=== PATIENT | male | born 1965 | race Hispanic/Latino ===

== ENCOUNTER → 2024-07-14 06:43 | Outpatient (REF) | payer MEDICAID, SELFPAY ==
[2024-07-14 08:04] LABS: % Basophils 0.3 % (0-2); % Eosinophils 2.7 % (0-6); % Immature Granulocytes 0.1 % (0-0.5); % Lymphocytes 21.4 % (20.5-51.1); % Monocytes 8.9 % (1.7-9.3); % Neutrophils 66.6 % (42.2-75.2); Absolute Eosinophils 0.2 10^3/uL (0-0.7); Absolute Lymphocytes 1.4 10^3/uL (1.2-3.4); Absolute Monocytes 0.6 10^3/uL (0.1-0.6); Absolute Neutrophils 4.5 10^3/uL (1.4-6.5); Hematocrit 28.6 % (39.0-52.0); Hemoglobin 9.4 g/dL (13.0-18.0); Mean Corp Hgb Conc. 32.9 g/dL (33.0-37.0); Mean Corpuscular Hgb 33.3 pg (27.0-31.0); Mean Corpuscular Volume 101.4 fL (80.0-94.0); Mean Platelet Volume 11.2 fL (7.4-10.4); Nucleated Red Blood Cells % 0 % (-); Platelet Count 140 10^3/uL (130-400); Red Blood Cell Count 2.82 10^6/uL (4.70-6.10); Red Cell Dist. Width 13.8 % (11.5-14.5); White Blood Cell Count 6.7 10^3/uL (4.8-10.8)
[2024-07-14 08:40] LABS: ALT (SGPT) 39 U/L (0-50); AST (SGOT) 25 U/L (17-59); Albumin 4.4 g/dl (3.5-5.0); Alkaline Phosphatase 130 U/L (38-126); Blood Urea Nitrogen 55 mg/dl (9-20); Calcium 8.8 mg/dl (8.4-10.2); Carbon Dioxide 31 mmol/L (22-30); Chloride 93 mmol/L (98-107); Glucose 103 mg/dl (70-99); HDL Cholesterol 31 mg/dl; LDL Cholesterol, Calculated 77 mg/dl; Potassium 5.9 mmol/L (3.5-5.1); Sodium 140 mmol/L (135-145); Total Bilirubin 0.6 mg/dl (0.2-1.3); Total Cholesterol 141 mg/dl (50-199); Total Protein 6.9 g/dl (6.3-8.2); Triglyceride 167 mg/dl (10-149); Very Low Density Lipoprotein 33 mg/dl (0-30)
[2024-07-14 09:07] LABS: PSA, Total - Screen 1.55 ng/ml (0.0-4.0)
[2024-07-14 09:43] LABS: Glycohemoglobin (HgbA1c) 4.9 % (4.0-5.6)
[2024-07-14 10:12] LABS: Uric Acid 3.4 mg/dl (3.5-8.5)
[2024-07-14 16:12] LABS: Magnesium 2.3 mg/dl (1.6-2.3)
== END ==
LOC: REG 06:43
PROVIDERS: ATTENDING PHYSICIAN Family Medicine
DX: R19.5 Other fecal abnormalities (principal); N18.6 End stage renal disease; R79.9 Abnormal finding of blood chemistry, unspecified; Z79.899 Other long term (current) drug therapy; Z68.31 Body mass index [BMI] 31.0-31.9, adult
CPT/HCPCS: 36415; 80053; 80061; 83036; 83735; 84550; 85025; G0103

== ENCOUNTER → 2024-08-09 06:28 | Day surgery (SDC) | payer MEDICAID, SELFPAY ==
[2024-08-09 12:17] LABS: Glucose - Point of Care 109 mg/dl (70-99)
== END ==
LOC: GI 06:28
PROVIDERS: ATTENDING PHYSICIAN Student in an Organized Health Care Education/Training Program
DX: Z12.11 Encounter for screening for malignant neoplasm of colon (principal); R19.5 Other fecal abnormalities; D50.9 Iron deficiency anemia, unspecified; K57.30 Diverticulosis of large intestine without perforation or abscess without bleeding; K63.89 Other specified diseases of intestine; K22.89 Other specified disease of esophagus; K31.7 Polyp of stomach and duodenum; K31.89 Other diseases of stomach and duodenum; D12.5 Benign neoplasm of sigmoid colon; D12.3 Benign neoplasm of transverse colon; D12.0 Benign neoplasm of cecum; K29.50 Unspecified chronic gastritis without bleeding; K31.A0 Gastric intestinal metaplasia, unspecified
CPT/HCPCS: 45385; 45380; 43239; 88305; 82962; 88342

== ENCOUNTER 2024-08-18 16:02 | Emergency (ER) | payer MEDICAID, SELFPAY ==
[2024-08-18 16:04] VITALS: BP 176/96
[2024-08-18 16:21] LABS: % Basophils 0.1 % (0-2); % Eosinophils 0.2 % (0-6); % Immature Granulocytes 0.7 % (0-0.5); % Lymphocytes 10.4 % (20.5-51.1); % Monocytes 11.2 % (1.7-9.3); % Neutrophils 77.4 % (42.2-75.2); Absolute Immature Granulocytes 0.1 10^3/uL (0-0.05); Absolute Monocytes 1.1 10^3/uL (0.1-0.6); Absolute Neutrophils 7.5 10^3/uL (1.4-6.5); Hematocrit 25.5 % (39.0-52.0); Hemoglobin 8.1 g/dL (13.0-18.0); Mean Corp Hgb Conc. 31.8 g/dL (33.0-37.0); Mean Corpuscular Hgb 32.5 pg (27.0-31.0); Mean Corpuscular Volume 102.4 fL (80.0-94.0); Mean Platelet Volume 11.5 fL (7.4-10.4); Nucleated Red Blood Cells % 0 % (-); Platelet Count 121 10^3/uL (130-400); Red Blood Cell Count 2.49 10^6/uL (4.70-6.10); Red Cell Dist. Width 14.3 % (11.5-14.5); White Blood Cell Count 9.7 10^3/uL (4.8-10.8)
[2024-08-18 16:34] LABS: COVID-19 Antigen Negative (Negative)
[2024-08-18 16:42] LABS: ALT (SGPT) 420 U/L (0-50); AST (SGOT) 403 U/L (17-59); Albumin 4.4 g/dl (3.5-5.0); Alkaline Phosphatase 117 U/L (38-126); Blood Urea Nitrogen 69 mg/dl (9-20); Calcium 8.5 mg/dl (8.4-10.2); Carbon Dioxide 30 mmol/L (22-30); Chloride 90 mmol/L (98-107); Glucose 123 mg/dl (70-99); Potassium 6.4 mmol/L (3.5-5.1); Sodium 139 mmol/L (135-145); Total Bilirubin 1.1 mg/dl (0.2-1.3); eGFR 6.79
--- NOTE | 2024-08-18 17:40 | ED.GENMED ---
History of Present Illness
General
Chief Complaint: Cold/Flu/URI Symptoms
Source: patient
Exam Limitations: none
Time Seen by Provider: 08/18/24 17:25
Nursing documentation reviewed up to this point in time: agreed with
History of Present Illness
History of Present Illness:
Patient to ED wtih complaint of fever, cough, bodyaches. Symptoms started 1.5weeks ago. COmplains of inablilty to sleep due to cough. Dialysis patient kaitlin nguyen, sat. Brought to ED by spouse for eval
Past History
Past History
ED Past Medical History: HTN, NIDDM and Renal failure (hemo dialysis)
ED Past Surgical History: Other (LUE AV fistula)
Social History
Personal:
Review of Systems
Review of Systems
All Other Systems: ROS reviewed and negative except as documented in HPI and ROS
Constitutional: Reports fever and fatigue
EENT: Reports no symptoms
Respiratory: Reports cough and trouble breathing
Cardiac: Reports no symptoms
ABD/GI: Reports no symptoms
: Reports no symptoms
Musculoskeletal: Reports other (generalilzed body ache)
Skin: Reports no symptoms
Neurological: Reports weakness
Psychiatric: Reports no symptoms
Phy Exam
General Physical Exam
General Presentation: well appearing and no apparent distress
General age: appears stated age
General Skin: warm and dry
General Habitus: normal
Cardiovascular Exam
Cardiovascular Exam: regular rate/rhythm
Pulmonary Exam
Pulmonary Exam: lungs clear, no respiratory distress and chest non tender
Gastrointestinal Exam
Gastrointestinal Exam: normal bowel sounds, non tender, soft and no organomegaly
Musculoskeletal Exam
Musculoskeletal Exam: full ROM and neuro vasc intact
Skin Exam
Skin Exam: normal color, warm/dry and no rash
Psychiatric Exam
Psychiatric Exam: normal mood/affect
Course
Orders/Labs/Results
Orders:
Orders
08/18/24 16:12
COVID-19 Antigen Urgent
Source: Nasal Swab
Complete Blood Count/With Diff Urgent
Comprehensive Metabolic Panel Urgent
NT-proBNP Urgent
Influenza A+B Rapid Molecular Urgent
TED Source: Nasal Swab
Specimen Description:
08/18/24 17:28
CR Chest - 2 Views Urgent
Comment:
Reason For Exam: [email or web address]
08/18/24 17:39
Sodium Zirconium Cyclosilicate [Lokelma] 10 gram PO NOW STA
08/18/24 19:04
Add On- LAB Urgent
Tests Added?: BNP
08/18/24 19:25
Acetaminophen [Tylenol] 650 mg PO NOW STA
08/18/24 20:18
Benzonatate [Tessalon Perles] 200 mg PO NOW STA
Abnormal Lab Results
08/18/24
16:12
RBC 2.49 L 10^6/uL
(4.70-6.10)
Hgb 8.1 L g/dL
(13.0-18.0)
Hct 25.5 L %
(39.0-52.0)
MCV 102.4 H fL
(80.0-94.0)
MCH 32.5 H pg
(27.0-31.0)
MCHC 31.8 L g/dL
(33.0-37.0)
Plt Count 121 L 10^3/uL
(130-400)
MPV 11.5 H fL
(7.4-10.4)
Abs Immat Gran (auto) 0.1 H 10^3/uL
(0-0.05)
Absolute Neuts (auto) 7.5 H 10^3/uL
(1.4-6.5)
Absolute Lymphs (auto) 1.0 L 10^3/uL
(1.2-3.4)
Absolute Monos (auto) 1.1 H 10^3/uL
(0.1-0.6)
Immature Gran % 0.7 H %
(0-0.5)
Neutrophils % 77.4 H %
(42.2-75.2)
Lymphocytes % 10.4 L %
(20.5-51.1)
Monocytes % 11.2 H %
(1.7-9.3)
Potassium 6.4 H* mmol/L
(3.5-5.1)
Chloride 90 L mmol/L
(98-107)
BUN 69 H mg/dl
(9-20)
Creatinine 8.4 H* mg/dL
(0.7-1.3)
Glucose 123 H mg/dl
(70-99)
AST 403 H U/L
(17-59)
ALT 420 H U/L
(0-50)
08/18/24 16:12
08/18/24 16:12
Vital Signs
Initial and Last Documented VS:
Initial Vital Signs
Temp Pulse Resp BP Pulse Ox
100.4 F H 101 16 176/96 98
08/18/24 16:04 08/18/24 16:04 08/18/24 16:04 08/18/24 16:04 08/18/24 16:04
Last Documented Vital Signs
Temp Pulse Resp BP Pulse Ox
100.0 F 97 20 113/62 94
08/18/24 19:13 08/18/24 19:13 08/18/24 19:13 08/18/24 19:13 08/18/24 19:13
MDM/Problems Addressed
Differential Diagnosis Includes:
Patient to ED with complaint of cough, fever, bodyaches. Symptoms present for 1.5 weeks. Difficulty sleeping due to cough. He is a dialysis patient, receives dialysis mauricio amezquita, sat. Temp 100.0 in ED. WBC normal. Hgb 8.1 which is stable for
him. K 6.4. given dose of lokelma. Na normal. Creat 8.4. CXR NAD. Discussed with Dr. Adams. Patient would like to go home, requesting medication for his cough. He will follow up at dialysis in AM as previously scheduled. Dr. Adams agreable with
discharge plan. He was given instructions on s/s to return to ED and he is agreeable to plan. DDx: infection, viral vs, bacterial, fluid overload
*Radiology
Radiology exam reviewed: radiology read reviewed
*Pulse Oximetry
Patient hypoxic: no
*Critical Care Note
Total Time (30-74mins, 75-104mins- exclusive of procedures): Not Applicable
ED Attending Note
-
Portions of this chart may have been created with voice recognition software.� Occasional wrong word or��sound alike� substitutions may have occurred due to the inherent limitations of voice recognition software.
Discharge Plan
Departure
Patient Disposition: Home (Routine Discharge)
Date of Disposition: 08/18/24
Time of Disposition: 20:00
Patient with high blood pressure during this ER visit?: No
Condition: Good
Covid-19: Not Applicable
Discharge Problem:
Hyperkalemia, Cough in adult
Instructions: Hyperkalemia (DC), Cough, Adult ED
Prescriptions:
No Action
allopurinol 100 MG tablet
200 mg PO DAILY
sevelamer carbonate 800 MG tablet
800 mg PO QPM
acetaminophen 325 mg Tablet
325 mg PO DAILYPRN PRN (Reason: mild pain)
calcium carbonate [Tums] 200 mg calcium (500 mg) Tablet,Chewable
400 mg PO DAILYPRN PRN (Reason: indigestion)
nifedipine 60 mg Tablet Extended Release
60 mg PO DAILY
B-complex with vitamin C [Nephro-Carmine] Tablet
1 tab PO TUTHSA
cinacalcet 30 mg Tablet
30 mg PO DAILY
Referrals:
Alex Todd MD [Family Provider] -
Activity Restrictions/Additional Instructions:
FOllow up at dialysis in AM as scheduled.
Interventions
Interventions:
*Risk Screen - Suicide Last Done: 08/18/24 16:04
*General Assessment Last Done: 08/18/24 16:04
*Neglect/Abuse Screening Last Done: 08/18/24 16:04
*ED COVID-19 Vaccine History Last Done: 08/18/24 16:04
*Nursing Disposition Last Done: 08/18/24 20:28
ED- Pulmonary Assessment Last Done: 08/18/24 19:00
Discharge Date and Time
Discharge Date/Time: 08/18/24 20:29
Print Language: CROATIAN
[2024-08-18] MEDS: LOKELMA 10 GRAM PO (18:11)
[2024-08-18 19:13] VITALS: BP 113/62
[2024-08-18 19:28] LABS: NT-proBNP > 27000 pg/ml
[2024-08-18] MEDS: TYLENOL 650 MG PO (19:33)
[2024-08-18] MEDS: TESSALON PERLES 200 MG PO (20:23)
== END 2024-08-18 20:29 | disposition home or self-care (01) ==
LOC: EMR 16:02
PROVIDERS: Emergency Medicine; EMERGENCY PHYSICIAN Emergency Medicine; FAMILY PHYSICIAN Family Medicine
DX: E87.5 Hyperkalemia (principal); R05.9 Cough, unspecified; I12.0 Hypertensive chronic kidney disease with stage 5 chronic kidney disease or end stage renal disease; E11.22 Type 2 diabetes mellitus with diabetic chronic kidney disease; N18.6 End stage renal disease; Z99.2 Dependence on renal dialysis
CPT/HCPCS: 99284; 71046; 80053; 83880; 85025; 87502; 87811

== ENCOUNTER 2024-08-19 12:53 | Inpatient (IN) | payer MEDICAID, SELFPAY ==
[2024-08-19] VITALS (42 sets, daily range): BP systolic 87–129; BP diastolic 55–87; BMI 29.7
--- NOTE | 2024-08-19 11:15 | ED.GENMED ---
History of Present Illness
General
Chief Complaint: Rectal Bleeding
Time Seen by Provider: 08/19/24 11:15
History of Present Illness
History of Present Illness:
TIME OF INITIAL ENCOUNTER: 11:20 AM
HPI: The patient had colonoscopy 10 days ago and did have polypectomies. He cannot tell me why he had the colonoscopy performed 10 days ago (he Dr. Denton later told me that it was due to an abnormal Cologuard). He had rectal bleeding that started
last night. It is a little bit better today. He was seen in the ER yesterday due to a general unwell feeling and was found to be hyperkalemic and he did have dialysis this morning. He has no abdominal pain and no fevers. He states that his
hemoglobin level was 'low' according to dialysis today and was given a dose of something to raise his hemoglobin.
EXAM:
GENERAL: Somewhat pale and weak in appearance
HEENT: Moist oral mucosa
CARDIOVASCULAR: No murmurs, normal heart rate, regular rhythm, No chest wall tenderness
PULMONARY: No respiratory distress, breath sounds are clear and equal
ABDOMEN: Soft with no peritoneal signs, no tenderness, on digital rectal examination, there is a small amount of blood on digital rectal examination
NEUROLOGIC: Excellent strength all extremities, no coordination deficits
PSYCHIATRIC: Appropriate mental status, normal insight and judgement
EXTREMITIES: Nontender, no edema, moves all extremities equally
SKIN: Appears somewhat pale
NUMBER AND COMPLEXITY OF PROBLEMS ADDRESSED AT THE ENCOUNTER
� Chronic conditions affecting care: CKD on HD, high blood pressure, hyperlipidemia
� Acute Exacerbation and/or Progression of Chronic Illness: This is an acute problem
� Differential Diagnosis includes: Post polypectomy bleeding, diverticular bleeding
AMOUNT AND/OR COMPLEXITY OF DATA TO BE REVIEWED AND ANALYZED
� I performed an independent evaluation of and my interpretation is:
EKG:
CT:
X-rays:
Laboratory Studies: White count 5.2, hemoglobin 5.9, transaminases are higher than yesterday, potassium is 3.7 creatinine is 3.9
Other:
� Review of other/old records: I reviewed records, the patient had a colonoscopy with Dr. Denton 08/09/2024, 3 mm cecal, 14 mm proximal transverse, 20 mm mid transverse, and 20 mm sigmoid polyps were removed.
� Clinical information was obtained by an independent historian: None needed
� Prescriptions/Medications Considered but not given:
� Further testing considered but not performed: Considered CTA however the patient just had hemodialysis today and vital signs are stable here
RISK OF COMPLICATIONS AND/OR MORBIDITY OR MORTALITY OF PATIENT MANAGEMENT
� Social determinants of health affecting care: Lives at home, attends hemodialysis
� Discussion with other providers: Dr. Denton texted me earlier and then I informed him of the low hemoglobin. Dr. Soliz, hospitalist for admission.
� Escalation of care including admission/observation vs risk of discharge considered: Planning blood transfusion. Patient did sign informed consent for blood transfusion.
ANY OTHER UPDATES:
12 PM: Patient remained hemodynamically stable but will plan admission to the hospital and blood transfusion
Past History
Past History
ED Past Medical History: HTN, NIDDM and Renal failure (hemo dialysis)
ED Past Surgical History: Other (LUE AV fistula)
Social History
Personal:
Phy Exam
Physical Exam
Physical Exam:
See HPI
Course
Orders/Labs/Results
Orders:
Orders
08/19/24 11:14
Type+Screen Urgent
Complete Blood Count/With Diff Urgent
Comprehensive Metabolic Panel Urgent
08/19/24 12:28
Blood Bank Products [* Blood Bank Products] Urgent
Blood Bank Products: *Packed RBC Leuko(PRBC's)
Quantity: 2
Transfuse Today: Yes
Reason: Anemia
08/19/24 12:30
Admit/Transfer Patient As Directed
Co-Sign Provider:
Level of Care: Inpatient admission
Assign to:: Heart Failure Unit
Physician / Group: Jorge
Diagnosis: GI Bleed
Reason for Hospitalization: blood transfusion, GI consult
Expected length of stay greater than two midnights?: Yes
ELOS- Estimated Length of Stay in days: 3
I certify the patient meets the requirements for IP care: Yes
GASTROINTESTINAL CONSULT Routine
Consulting Provider: Krys Moreno
Was physician already notified: Yes
NEPHROLOGY CONSULT Routine
Consulting Provider: Db Adams
Was physician already notified: Yes
08/19/24 12:31
Code Status As Directed
Resuscitation Status: Full Code
PRN Pain Medication Management As Directed
May give lesser potent ordered pain med per pt: Yes
preference::
Protocol:: Medication orders for pain may be administered in a
manner that supports deferring to patient preference
when the pt is:
- Requesting an ordered lesser potent pain medication.
Least to most potent pain medications are defined
as: acetaminophen < NSAID < tramadol < opioids
(morphine, oxycodone, hydromorphone).
- Requesting a lesser dose of the same medication IF
ORDERED.
- Requesting a less intrusive route of administration
if both routes are prescribed by the provider (PO <
IV).
Abnormal Lab Results
08/19/24
11:14
RBC 1.80 L 10^6/uL
(4.70-6.10)
Hgb 5.9 L* D g/dL
(13.0-18.0)
Hct 17.6 L* %
(39.0-52.0)
MCV 97.8 H fL
(80.0-94.0)
MCH 32.8 H pg
(27.0-31.0)
Plt Count 103 L 10^3/uL
(130-400)
MPV 11.3 H fL
(7.4-10.4)
Immature Gran % 0.8 H %
(0-0.5)
Chloride 93 L mmol/L
(98-107)
Carbon Dioxide 36 H mmol/L
(22-30)
BUN 32 H mg/dl
(9-20)
Creatinine 3.9 H mg/dL
(0.7-1.3)
Glucose 120 H mg/dl
(70-99)
Calcium 7.8 L mg/dl
(8.4-10.2)
AST 524 H* U/L
(17-59)
ALT 730 H* U/L
(0-50)
Total Protein 5.3 L D g/dl
(6.3-8.2)
Albumin 3.2 L g/dl
(3.5-5.0)
Crossmatch IS Only See Detail
08/19/24 11:14
08/19/24 11:14
Vital Signs
Initial and Last Documented VS:
Initial Vital Signs
Temp Pulse Resp BP Pulse Ox
36.7 C 90 16 108/55 98
08/19/24 10:43 08/19/24 10:43 08/19/24 10:43 08/19/24 10:43 08/19/24 10:43
Last Documented Vital Signs
Temp Pulse Resp BP Pulse Ox
37.0 C 86 16 110/62 98
08/19/24 13:19 08/19/24 13:19 08/19/24 13:19 08/19/24 13:19 08/19/24 13:19
*Critical Care Note
Total Time (30-74mins, 75-104mins- exclusive of procedures): Not Applicable
ED Attending Note
-
Portions of this chart may have been created with voice recognition software.� Occasional wrong word or��sound alike� substitutions may have occurred due to the inherent limitations of voice recognition software.
Discharge Plan
Departure
Patient Disposition: Admit
Date of Disposition: 08/19/24
Time of Disposition: 11:54
Presentation/result/management discussed w/ accepting MD/DO: Hospitalist
Discharge Problem:
Post-polypectomy bleeding
Interventions
Interventions:
*Risk Screen - Suicide Last Done: 08/19/24 10:43
*General Assessment Last Done: 08/19/24 11:09
*Neglect/Abuse Screening Last Done: 08/19/24 10:46
ED- Fall Risk Assessment Last Done: 08/19/24 11:09
*ED COVID-19 Vaccine History Last Done: 08/19/24 11:09
IQ-Lpfnzy-Asirccgbzg Assessment Last Done: 08/19/24 11:09
ED- Cardiac Assessment Last Done: 08/19/24 11:09
ED- Pulmonary Assessment Last Done: 08/19/24 11:09
[2024-08-19 11:50] LABS: % Basophils 0.4 % (0-2); % Eosinophils 1.9 % (0-6); % Immature Granulocytes 0.8 % (0-0.5); % Lymphocytes 22.2 % (20.5-51.1); % Monocytes 9.1 % (1.7-9.3); % Neutrophils 65.6 % (42.2-75.2); Absolute Eosinophils 0.1 10^3/uL (0-0.7); Absolute Lymphocytes 1.2 10^3/uL (1.2-3.4); Absolute Monocytes 0.5 10^3/uL (0.1-0.6); Absolute Neutrophils 3.4 10^3/uL (1.4-6.5); Hematocrit 17.6 % (39.0-52.0); Hemoglobin 5.9 g/dL (13.0-18.0); Mean Corp Hgb Conc. 33.5 g/dL (33.0-37.0); Mean Corpuscular Hgb 32.8 pg (27.0-31.0); Mean Corpuscular Volume 97.8 fL (80.0-94.0); Mean Platelet Volume 11.3 fL (7.4-10.4); Nucleated Red Blood Cells % 0 % (-); Platelet Count 103 10^3/uL (130-400); White Blood Cell Count 5.2 10^3/uL (4.8-10.8)
[2024-08-19 12:19] LABS: ALT (SGPT) 730 U/L (0-50); AST (SGOT) 524 U/L (17-59); Albumin 3.2 g/dl (3.5-5.0); Alkaline Phosphatase 83 U/L (38-126); Blood Urea Nitrogen 32 mg/dl (9-20); Calcium 7.8 mg/dl (8.4-10.2); Carbon Dioxide 36 mmol/L (22-30); Chloride 93 mmol/L (98-107); Estimated Creatinine Clearance 20 ml/min; Glucose 120 mg/dl (70-99); Potassium 3.7 mmol/L (3.5-5.1); Sodium 138 mmol/L (135-145); Total Bilirubin 0.7 mg/dl (0.2-1.3); Total Protein 5.3 g/dl (6.3-8.2); eGFR 17.04
--- NOTE | 2024-08-19 12:29 | HPS.HSE ---
Family Physician
-
Family Physician: Alex Todd
Chief Complaint
-
Rectal Bleeding
History of Present Illness
Patient is a 59 y/o male past medical history of ESRD, DM, and Hypertension who presents with rectal bleeding. Patient had a colonoscopy on August 09 at which time several large polyps removed requiring clips. Initially after the procedure he
was doing very well until last night when he developed rectal bleeding. Patient reports many episodes of bright red blood per rectum since last night, with most recent just before my evaluation in the emergency department. Nursing staff noted
patient began very diaphoretics following the most recent episode of bleeding. During my evaluation he reports dizziness when sitting up in the bed to auscultate the posterior lung everett. Patient denies any chest pain, palpitations or shortness.
Medical History
Past Medical History
Past Medical History: Reports Other
Additional Past Medical History:
Diabetes Mellitus, Type II
IgA Nephropathy
ESRD on HD
Secondary Hyperparathyroidism
Hyperphosphatemia
Essential Hypertension
Gout
Past Surgical History: Reports Other
Additional Past Surgical History:
Left Upper Extremity AV Fistula
Appendectomy
Social History
Tobacco: Non-smoker
Alcohol: None
Family History
Family History: Not pertinent
Allergies / Home Medications
Allergies reflects when Allergies were last updated in [facility].
Home Medications with original date entered in [facility]
Allergy/Medication List:
Allergies
Allergy/AdvReac Type Severity Reaction Status Date / Time
NKA - No Known Allergies Allergy NKDA Uncoded 08/19/24 10:46
Home Medications
allopurinol 100 mg tablet 200 mg PO DAILY 10/08/16
sevelamer carbonate 800 mg tablet 800 mg PO QPM 12/16/18
B-complex with vitamin C 1 tab PO TUTHSA 08/19/24
acetaminophen 325 mg tablet 325 mg PO DAILYPRN PRN mild pain 08/19/24
calcium carbonate (Tums) 400 mg PO DAILYPRN PRN indigestion 08/19/24
cinacalcet 30 mg tablet 30 mg PO DAILY 08/19/24
nifedipine 60 mg tablet,extended release 60 mg PO DAILY 08/19/24
Review of Systems
-
A 12 point ROS was completed and negative except as noted: Yes
Constitutional: Denies Fever or Chills
Respiratory: Denies Cough or Trouble Breathing
Cardiac: Denies Chest Pain or Palpitations
Abdomen/GI: Reports See HPI
Physical Exam
Vital Signs
Vital Signs
Temp Pulse Resp BP Pulse Ox
98.0 F 87 18 108/66 94
08/19/24 10:43 08/19/24 12:00 08/19/24 12:00 08/19/24 12:13 08/19/24 12:13
Physical Exam
General: Comfortable and Conversant
HEENT: Anicteric and Moist mucous membranes
Respiratory: Clear and Non Labored Respirations
Cardiac: S1/S2 and Regular Rhythm
GI: Soft and Non Tender
Rectal: Other (Small amount of blood per ED provider)
Musculoskeletal: No Clubbing, No Cyanosis, No Edema and Other (LUE AV Fistula with good thrill)
Skin: Warm and Dry
Neuro: Awake, Alert, Oriented and Nonfocal/grossly intact
Psych: Calm
Laboratory Results
-
08/19/24 11:14
08/19/24 11:14
Laboratory Results
Total Bilirubin 0.7 mg/dl (0.2-1.3) 08/19/24 11:14
AST 524 U/L (17-59) H* 08/19/24 11:14
ALT 730 U/L (0-50) H* 08/19/24 11:14
Alkaline Phosphatase 83 U/L (38-126) 08/19/24 11:14
Data Reviewed
-
Lab Data: Labs Reviewed by me
Impression/Plan
-
Rectal Bleeding, likely post-polypectomy bleed
-Consult GI
-Continue NPO
Symptomatic Acute Blood Loss Anemia
-Transfuse 2 units PRBCs
-Trend serial Hgb
Elevated AST/ALT
-Check Hepatitis Serologies
-Plan for Abd US when more stable
ESRD on HD MoWeFr
-Consult Nephrology
Secondary Hyperparathyroidism
-Continue cinacalcet
Hyperphosphatemia
-Continue sevelamer
Essential Hypertension
-Hold nifedipine
Diabetes Mellitus, type II
-Monitor sugars and continue coverage insulin
DVT proph: SCDs
Code Status: Full Code
--- NOTE | 2024-08-19 12:38 | W.PN.UPDATE ---
Update Note
Progress Note Update
This is an addendum to H&P written by LEDA Galarza
I saw and examined the patient.
The [employer]'s note was reviewed and I agree with the note.
Comment:
Mr. Joseluis Correa is a 59 yo man with hx ESRD on HD, HTN, HLD, Gout, presents to the ER with rectal bleeding, multiple episodes overnight. Patient had an EGD and colonoscopy 10 days ago with multiple polyps removed.
Triage VS T 36.7 C, P 90, RR 16, [place] [address], SpO2 98%
LABS: WBC 5.2, Hg 5.9, PLT 103, Na 138, K+ 3.7, Cl 93, CO2 36, BUN 32, Cr 3.9, Glucose 120, T. Bili 0.7, AST 524, ALT 730
Acute Blood Loss Anemia
Bright Red Blood per Rectum
-recent EGD and colonoscopy 10 days ago s/p multiple biopsies and polyp removal (Impressions copied and pasted below).
-admit to IMU
-2 units PRBC ordered now (to start soon)
-2 large bore IV access
-trend Hg and transfuse PRN to keep Hg > 7
-keep NPO
-follow up further GI recs
Elevated Liver Enzymes
-no abdominal pain
-patient reports infrequent Tylenol use, once yesterday and once this morning
-will add on hep serologies
-obtain US (post transfusions)
-F/U further GI recommendations
ESRD on HD
-nephrology consulted
-s/p HD this morning
-EARLY MORNING BABYSITTER Cinacalcet, Sevelamer
Essential HTN
-hold EARLY MORNING BABYSITTER Nifedipine in setting of bleed
EGD 08/09/24
Impression: - Single, small yellowish subepithelial nodule found
in the proximal esophagus. Biopsied.
- Normal mid esophagus and distal esophagus.
- Z-line regular, 40 cm from the incisors.
- Multiple gastric polyps. Endoscopically, consistent
with benign fundic gland polyps. One polyp was
resected and retrieved to serve as a industrial sales representative
sample
- Otherwise, normal stomach on direct and retroflexion
views. Biopsied to rule out H pylori.
- Few mucosal nodules found in the duodenum and
endoscopically suspicious for Gopal's gland
hyperplasia
- One 15 mm mucosal nodule found in the duodenal bulb
and extending within the duodenal sweep. Biopsied to
rule out adenoma.
- Normal second portion of the duodenum and third
portion of the duodenum.
- Biopsies were taken with a cold forceps for
evaluation of celiac disease.
- The examination was otherwise normal.
Colonoscopy 08/09/24
Impression: - Lipomatous ileocecal valve. Biopsied to rule out
adenomatous tissue.
- One 3 mm polyp in the cecum, removed with a cold
biopsy forceps. Resected and retrieved.
- One 14 mm pedunculated polyp in the proximal
transverse colon, removed with a hot snare. Resected
and retrieved. Clip (MR conditional) was placed. Clip
mission support specialist: [employer].
- One 20 mm pedunculated polyp in the mid transverse
colon, removed with a hot snare. Resected and
retrieved. Clips (MR conditional) were placed. Clip
mission support specialist: [employer].
- One 12 mm pedunculated polyp in the sigmoid colon,
removed with a hot snare. Resected and retrieved. Clip
(MR conditional) was placed. Clip mission support specialist: [employer].
- Diverticulosis in the sigmoid colon. There was no
evidence of diverticular bleeding.
- The examination was otherwise normal on direct and
retroflexion views of both the right colon and rectum.
76 minutes spent on patient care
--- NOTE | 2024-08-19 13:34 | W.CON.NEPH ---
Consultation
-
Date/Time Consultation Requested: 08/19/24 1300
Date/Time Consultation Performed: 08/19/24 1411
Requesting Provider: Dr. Patel
Performing Provider: Dr. Adams
Reason for Consultation: ESRD
Medical History
-
Chief Complaint: fatigue
History of Present Illness:
Patient is a 59 y/o male with ESRD on dialysis Tuesdays and Saturdays at [facility]. He also has diabetes on no medications, hypertension on multidrug regimen. Patient had a colonoscopy on August 09 at which time several
large polyps removed requiring clips. He had no issues until last night when he developed bright red blood per rectum. He says that he had developed bright red blood and then stools became very dark and then bright red again. At work he also was
very fatigued with coughing. He had mild dizziness. He went to dialysis today and completed the session without issue. He does receive SHRAVAN at dialysis.
Past Medical History
Diabetes Mellitus, Type II
IgA Nephropathy
ESRD on HD
Secondary Hyperparathyroidism
Hyperphosphatemia
Essential Hypertension
Gout
Left Upper Extremity AV Fistula
Appendectomy
Social History
Tobacco: Non-Smoker
Alcohol: None
Allergies / Home Medications
Allergy/AdvReac Type Severity Reaction Status Date / Time
NKA - No Known Allergies Allergy NKDA Uncoded 08/19/24 10:46
�Medication �Instructions �Recorded �Confirmed �Type
allopurinol 100 mg tablet 200 mg PO DAILY 10/08/16 08/19/24 History
sevelamer carbonate 800 mg tablet 800 mg PO QPM 12/16/18 08/19/24 History
B-complex with vitamin C 1 tab PO TUTHSA 08/19/24 08/19/24 History
acetaminophen 325 mg tablet 325 mg PO DAILYPRN PRN mild pain 08/19/24 08/19/24 History
calcium carbonate (Tums) 400 mg PO DAILYPRN PRN indigestion 08/19/24 08/19/24 History
cinacalcet 30 mg tablet 30 mg PO DAILY 08/19/24 08/19/24 History
nifedipine 60 mg tablet,extended 60 mg PO DAILY 08/19/24 08/19/24 History
release
Review of Systems
-
as above
All other systems: Negative unless noted
Physical Exam
Vital Signs
Vital Signs
Temp Pulse Resp BP Pulse Ox
98.6 F 86 16 110/62 98
08/19/24 13:19 08/19/24 13:19 08/19/24 13:19 08/19/24 13:19 08/19/24 13:19
Lab Results
WBC 5.2 10^3/uL (4.8-10.8) 08/19/24 11:14
RBC 1.80 10^6/uL (4.70-6.10) L 08/19/24 11:14
Hgb 5.9 g/dL (13.0-18.0) L* D 08/19/24 11:14
Hct 17.6 % (39.0-52.0) L* 08/19/24 11:14
Plt Count 103 10^3/uL (130-400) L 08/19/24 11:14
Sodium 138 mmol/L (135-145) 08/19/24 11:14
Potassium 3.7 mmol/L (3.5-5.1) D 08/19/24 11:14
Chloride 93 mmol/L (98-107) L 08/19/24 11:14
Carbon Dioxide 36 mmol/L (22-30) H 08/19/24 11:14
BUN 32 mg/dl (9-20) H 08/19/24 11:14
Creatinine 3.9 mg/dL (0.7-1.3) H 08/19/24 11:14
eGFR 17.04 08/19/24 11:14
Glucose 120 mg/dl (70-99) H 08/19/24 11:14
Calcium 7.8 mg/dl (8.4-10.2) L 08/19/24 11:14
Albumin 3.2 g/dl (3.5-5.0) L 08/19/24 11:14
Laboratory Tests
08/18/24
16:12
Hgb 8.1 L
Potassium 6.4 H*
Physical Exam
Patient is awake alert oriented and in no distress. Mood and affect were pleasant, insight and judgment were good. Pupils are equal round and reactive to light, extraocular movements are intact, sclera were anicteric. Hearing was normal, ears and
nose are intact. Oropharynx was clear. Neck was supple with trachea midline and no thyromegaly. Heart was regular rate and rhythm without rubs. Lower extremities without edema. Lungs were clear to auscultation bilaterally and with normal
excursion. Abdomen was soft, nontender, with normal active bowel sounds, and no hepatosplenomegaly. Skin was without rash and with normal turgor. AV fistula with good thrill and bruit
Data Reviewed
-
Medical Tests (Nuc Med, Echo etc): Image Personally Visualized and interpreted (Chest x-ray on 08/18/2024 by my reading shows mild vascular congestion)
Labs: Labs Reviewed by me
Old Records: Reviewed
Assessment/Plan
-
Assessment
ESRD
Anemia.
GI bleed
diabetes mellitus type 2
Elevated LFTs
Plan
transfuse packed red blood cells
Dialysis set for Friday
GI evaluation
Follow LFTs
Consider CT scan abdomen
--- NOTE | 2024-08-19 15:10 | CON.GI ---
Consultation
-
Date/Time Consultation Requested: 08/19/2024
Date/Time Consultation Performed: 08/19/2024
Requesting Provider: Hospitalist
Performing Provider: Mee ROJAS
Reason for Consultation: rectal bleeding
Medical History
Chief Complaint / HPI
Chief Complaint: Rectal bleeding
History of Present Illness:
59-year-old male with past medical history of end-stage renal disease on HD, diabetes, hypertension presented to ED with rectal bleeding for 2 days. Patient underwent colonoscopy 08/09/2024 ( for positive cologuard )with removal of large colon
polyps. He also had EGD with bx on the same day. He claims he was doing well until yesterday when he started noticing blood with stools. He did have 3 bowel movements yesterday at home. He then had 3 episodes while in ED today. As per nursing
large amount of bright red blood noted with clots. Patient also reports dizziness when sitting up to the bed. Denies any chest pain or shortness of breath.
To the ED labs today
Hb 5.9/WBC 5.2/platelets 103 (Hb was 9.4 07/14/2024)
BUN 32/serum creatinine 3.9/sodium 138/potassium 3.7
AST 520/ALT 730/total bili 1.7/alkaline phosphatase 83 (liver test were normal except elevated alkaline phosphatase 07/14/2024
Past Medical History
Past Medical History: Other (Diabetes Mellitus, Type II IgA Nephropathy ESRD on HD Secondary Hyperparathyroidism Hyperphosphatemia Essential Hypertension Gout)
Past Surgical History: Other (Left Upper Extremity AV Fistula Appendectomy)
Social History
Tobacco: Non-Smoker
Alcohol: None
Allergies / Home Medications
Allergy/AdvReac Type Severity Reaction Status Date / Time
NKA - No Known Allergies Allergy NKDA Uncoded 08/19/24 10:46
�Medication �Instructions �Recorded
allopurinol 100 mg tablet 200 mg PO DAILY 10/08/16
sevelamer carbonate 800 mg tablet 800 mg PO QPM 12/16/18
B-complex with vitamin C 1 tab PO TUTHSA 08/19/24
acetaminophen 325 mg tablet 325 mg PO DAILYPRN PRN mild pain 08/19/24
calcium carbonate (Tums) 400 mg PO DAILYPRN PRN indigestion 08/19/24
cinacalcet 30 mg tablet 30 mg PO DAILY 08/19/24
nifedipine 60 mg tablet,extended 60 mg PO DAILY 08/19/24
release
Review of Systems
-
All other systems: A 12 pt ROS was Negative except as stated above in HPI
Vital Signs
Temp Pulse Resp BP Pulse Ox
98.6 F 87 16 111/71 97
08/19/24 13:19 08/19/24 14:30 08/19/24 14:30 08/19/24 14:00 08/19/24 14:30
Physical Exam
Exam
General: Well Developed and No Apparent Distress
Respiratory: Clear
Cardiac: S1/S2
GI: Soft, Non Tender, Non Distended and Normal Bowel Sounds
Neuro: AO x 3
Results
WBC 5.2 10^3/uL (4.8-10.8) 08/19/24 11:14
Hgb 5.9 g/dL (13.0-18.0) L* D 08/19/24 11:14
Hct 17.6 % (39.0-52.0) L* 08/19/24 11:14
MCV 97.8 fL (80.0-94.0) H 08/19/24 11:14
Plt Count 103 10^3/uL (130-400) L 08/19/24 11:14
Absolute Neuts (auto) 3.4 10^3/uL (1.4-6.5) 08/19/24 11:14
Sodium 138 mmol/L (135-145) 08/19/24 11:14
Potassium 3.7 mmol/L (3.5-5.1) D 08/19/24 11:14
Chloride 93 mmol/L (98-107) L 08/19/24 11:14
Carbon Dioxide 36 mmol/L (22-30) H 08/19/24 11:14
BUN 32 mg/dl (9-20) H 08/19/24 11:14
Creatinine 3.9 mg/dL (0.7-1.3) H 08/19/24 11:14
Calcium 7.8 mg/dl (8.4-10.2) L 08/19/24 11:14
Total Bilirubin 0.7 mg/dl (0.2-1.3) 08/19/24 11:14
AST 524 U/L (17-59) H* 08/19/24 11:14
ALT 730 U/L (0-50) H* 08/19/24 11:14
Alkaline Phosphatase 83 U/L (38-126) 08/19/24 11:14
Diagnostic Image Results:
Prior GI Procedures:
EGD: 08/09/2024
Impression: - Single, small yellowish subepithelial nodule found
in the proximal esophagus. Biopsied.
- Normal mid esophagus and distal esophagus.
- Z-line regular, 40 cm from the incisors.
- Multiple gastric polyps. Endoscopically, consistent
with benign fundic gland polyps. One polyp was
resected and retrieved to serve as a it sales representative
sample
- Otherwise, normal stomach on direct and retroflexion
views. Biopsied to rule out H pylori.
- Few mucosal nodules found in the duodenum and
endoscopically suspicious for Gopal's gland
hyperplasia
- One 15 mm mucosal nodule found in the duodenal bulb
and extending within the duodenal sweep. Biopsied to
rule out adenoma.
- Normal second portion of the duodenum and third
portion of the duodenum.
- Biopsies were taken with a cold forceps for
evaluation of celiac disease.
- The examination was otherwise normal.
Path�esophageal proximal nodule was gastric heterotropic mucosa. Stomach polyps were fundic gland polyps. Small bowel random biopsies suggestive of Gopal's gland hyperplasia, gastric metaplasia and gastric atrophic mucosa.
Duodenal nodule Gopal's gland hyperplasia and gastric foveolar metaplasia
Stomach biopsies negative for H. pylori
Colonoscopy: 08/09/24 for [place]/ + cologuard
Impression: - Lipomatous ileocecal valve. Biopsied to rule out
adenomatous tissue.
- One 3 mm polyp in the cecum, removed with a cold
biopsy forceps. Resected and retrieved.
- One 14 mm pedunculated polyp in the proximal
transverse colon, removed with a hot snare. Resected
and retrieved. Clip (MR conditional) was placed. Clip
industrial paramedic: [employer]
- One 20 mm pedunculated polyp in the mid transverse
colon, removed with a hot snare. Resected and
retrieved. Clips (MR conditional) were placed. Clip
industrial paramedic: [employer].
- One 12 mm pedunculated polyp in the sigmoid colon,
removed with a hot snare. Resected and retrieved. Clip
(MR conditional) was placed. Clip industrial paramedic: [employer]
- Diverticulosis in the sigmoid colon. There was no
evidence of diverticular bleeding.
- The examination was otherwise normal on direct and
retroflexion views of both the right colon and rectum.
Path-sigmoid/transverse colon polyps were tubular adenoma. Cecal polyp was sessile serrated lesion.
/
Assessment / Plan
-
59-year-old male with history of end-stage renal disease on HD, diabetes, hypertension admitted with bright red blood per rectum for 2 days. Patient underwent colonoscopy 08/09/2024 with removal of 3 large pedunculated polyps in transverse
colon/sigmoid colon. Patient was doing well until yesterday when he started having bright red blood per rectum. He underwent HD this a.m. On admission patient's hemoglobin was 5.9. Patient had 3 large BMs in ED and complaining of dizziness. BP
borderline.
-- Bright red blood per rectum -likely post polypectomy bleeding (colonoscopy with polypectomy 08/09/2024 )
-- Elevated liver test -possible shock liver
-- History of chronic anemia
plan
Transfuse 2 units of PRBC. Continue monitor H&H
Considering patient's current status-active lower GI bleeding requiring resuscitation with blood transfusion with hb of 5.9 /borderline hypotension with dizziness -patient will not tolerate rapid bowel prep/ anesthesia sedation for repeat
colonoscopy -will get STAT CTA. If positive will recommend IR embolization. If negative and patient remain hemodynamically stable will prep him and attempt repeat colonoscopy. Discussed with medical team
Continue monitor LFT. Hepatitis panel pending
Hemodynamic stability
Will get ultrasound abdomen when stable
Total Time Spent with Patient (in minutes): 55
-
-
Thank you for consultation and allowing me to participate in the patient's care. Please call the [facility] physician during the after hours with any questions or concerns.
--- NOTE | 2024-08-19 17:30 | PTCARENOTE ---
rec'd pt in IR holding area prior to arteriogram procedure, VSS, PRBC transfusion running via right AC IV site. pt requested to use bathroom prior to procedure, where he had a moderate sized bright red BM with clots noted. pt with no c/o pain,
nausea, etc. assisted back to stretcher and into IR suite for arteriogram. Will continue to monitor.
--- NOTE | 2024-08-19 19:08 | W.PN.UPDATE ---
Update Note
Progress Note Update
Procedure: SMA arteriogram
- SMA and subselective arteriograms performed
- Unfortunately procedure was very challenging with poor image quality 2/2 excessive bowel gas, motion etc.
- No gross bleed identified and no definitive branches visualized leading to proximal transverse colon in area of patient's bleed/clip
- Pt HDS throughout. Rec continued conservative therapy, close clinical monitoring.
[2024-08-19 19:47] LABS: Hematocrit 19.2 % (39.0-52.0); Hemoglobin 6.5 g/dL (13.0-18.0)
[2024-08-19] MEDS: RENVELA PO (19:51)
[2024-08-19 20:02] LABS: Glucose - Point of Care 92 mg/dl (70-99)
--- NOTE | 2024-08-19 21:03 | EDRN ---
Blood was completed in IR by Izzy GUERRA see PINK SHEET -- TAR completed by this RN
--- NOTE | 2024-08-19 21:30 | PTCARENOTE ---
Received pt via transfer from ER. Pt AAOx3 able to FERNANDO. NSR with palpable pulses, trace edema in lower extremities. 98% on 2L, lungs diminished throughout. Hypoactive bowel sounds in all 4Q. Pt's bowel movements contain large amounts of [place] red
blood. Pt able to void with urinal. Skin CDI. Blood transfusing see flowsheet. Hygiene performed. Call simmons at bedside.
[2024-08-19] MEDS: DULCOLAX 10 MG PO (22:40)
[2024-08-19] MEDS: NULYTELY SOLUTION 4 LITERS PO (22:43)
[2024-08-20] VITALS (56 sets, daily range): BP systolic 94–148; BP diastolic 59–111; BMI 28.9
--- NOTE | 2024-08-20 | PTCARENOTE ---
All systems reassessed, next bag of blood transfusing. Pt had another bowel movement with [place]ed[place] red blood, otherwise no changes.
[2024-08-20 03:48] LABS: Hematocrit 23.6 % (39.0-52.0); Hemoglobin 8.1 g/dL (13.0-18.0); Mean Corp Hgb Conc. 34.3 g/dL (33.0-37.0); Mean Corpuscular Hgb 31.5 pg (27.0-31.0); Mean Corpuscular Volume 91.8 fL (80.0-94.0); Mean Platelet Volume 12.2 fL (7.4-10.4); Platelet Count 114 10^3/uL (130-400); Red Blood Cell Count 2.57 10^6/uL (4.70-6.10); Red Cell Dist. Width 16.4 % (11.5-14.5); White Blood Cell Count 8.5 10^3/uL (4.8-10.8)
[2024-08-20 03:53] LABS: INR 1.55; PT 19.1 Sec (11.4-14.6)
[2024-08-20 03:54] LABS: APTT 36.5 Sec (23.4-35.0)
--- NOTE | 2024-08-20 04:00 | PTCARENOTE ---
All systems reassessed. Labs drawn, hygiene performed. Call simmons at bedside.
[2024-08-20 05:55] LABS: ALT (SGPT) 734 U/L (0-50); AST (SGOT) 444 U/L (17-59); Albumin 2.5 g/dl (3.5-5.0); Alkaline Phosphatase 54 U/L (38-126); Blood Urea Nitrogen 46 mg/dl (9-20); Calcium 7.5 mg/dl (8.4-10.2); Carbon Dioxide 31 mmol/L (22-30); Chloride 95 mmol/L (98-107); Direct Bilirubin 0.4 mg/dl (0.0-0.4); Estimated Creatinine Clearance 12 ml/min; Glucose 93 mg/dl (70-99); Magnesium 2.1 mg/dl (1.6-2.3); Phosphorus 6.3 mg/dl (2.5-4.5); Potassium 4.9 mmol/L (3.5-5.1); Sodium 137 mmol/L (135-145); Total Bilirubin 1.1 mg/dl (0.2-1.3); Total Protein 4.4 g/dl (6.3-8.2); eGFR 10.37
--- NOTE | 2024-08-20 07:33 | CON.INTV ---
Consultation
Consultation Request
Date/Time Consultation Requested: 08/20/2024-7 AM
Date/Time Consultation Performed: 08/20/2024-7:30 AM
Requesting Provider: Hospitalist
Performing Provider: Dr. Keys
Reason for Consultation: GI bleed/critical care management
Medical History
-
Chief Complaint: GI bleed
History of Present Illness:
59-year-old male with history of end-stage renal disease, hypertension, diabetes who presented with rectal bleeding. Of note the patient had a colonoscopy on August 09 at which time several large polyps were removed requiring clipping. The
patient also reported bright red blood per rectum, diaphoresis, dizziness and transferred to ICU after 4 units of packed red blood cells for further close monitoring and GI evaluation-track layer consulted for GI bleed/critical care management
08/20/2024. The patient had another bloody bowel movement this morning. He did receive GoLytely. He denies any shortness of breath, chest pain, chest tightness, chest congestion, productive cough, has mild abdominal pain and he points to lower
mid to right and left abdominal area. He has mild nausea. He did not complain of any weakness or lower extremity swelling.
Past Medical History
Past Medical History: None (IgA nephropathy. End-stage renal disease on hemodialysis. Diabetes. Hypertension. Secondary hyperparathyroidism. Hyperphosphatemia. Gout. Appendectomy. Left upper extremity AV fistula.)
Social History
Tobacco: Non-smoker
Alcohol: None
Drug: None
Living: With Family
Occupational Exposures: No known asbestos exposure
Environmental Exposures: No known tuberculosis exposure
Family History
Family History: Reviewed & Not Pertinent
Allergies / Home Medications
Allergies
Allergy/AdvReac Type Severity Reaction Status Date / Time
No Known Allergies Allergy Unverified 08/19/24 19:10
Home Medications
�Medication �Instructions �Recorded �Confirmed �Last Taken �Type
allopurinol 100 mg tablet 200 mg PO DAILY Gout 10/08/16 08/19/24 08/18/24 History
sevelamer carbonate 800 mg tablet 800 mg PO QPM Kidney Disease 12/16/18 08/19/24 08/18/24 History
B-complex with vitamin C 1 tab PO TUTHSA Supplement 08/19/24 08/19/24 08/17/24 History
acetaminophen 325 mg tablet 325 mg PO DAILYPRN PRN mild pain 08/19/24 08/19/24 08/19/24 History
calcium carbonate (Tums) 400 mg PO DAILYPRN PRN indigestion 08/19/24 08/19/24 08/19/24 History
cinacalcet 30 mg tablet 30 mg PO DAILY Kidney Disease 08/19/24 08/19/24 08/18/24 History
nifedipine 60 mg tablet,extended 60 mg PO DAILY Blood Pressure 08/19/24 08/19/24 08/19/24 History
release
Review of Systems
-
Unable to Obtain full review of systems at this time due to: Other (Per HPI)
Vitals / Labs / Diagnostic Testing
Vital Signs
Temp Pulse Resp BP Pulse Ox
98.3 F 87 16 121/75 100
08/20/24 03:07 08/20/24 06:15 08/20/24 06:15 08/20/24 06:00 08/20/24 06:15
Lab Data
08/20/24 04:31
Laboratory Results
08/20/24
03:04
PT 19.1 H
INR 1.55
APTT 36.5 H
Diagnostic Testing:
Physical Exam
-
Exam:
Well-nourished and well-developed in no apparent distress
HEENT-atraumatic, normocephalic
Neck-supple, no JVD, no bruit
Heart-regular rate and rhythm-no murmurs, rubs or gallops
Chest-clear to auscultation, no wheezes, crackles
Back-no tenderness
Abdomen soft, nondistended, mild tenderness left and right lower quadrant without rebound or guarding
Extremities-no cyanosis, clubbing, edema and good peripheral pulses
Integument-intact, no rashes, lesions or ecchymosis
Neurology-alert and oriented, nonfocal motor and sensory exam
Assessment
-
59-year-old male with history of end-stage renal disease, hypertension, diabetes who presented with rectal bleeding. Of note the patient had a colonoscopy on August 09 at which time several large polyps were removed requiring clipping. The
patient also reported bright red blood per rectum, diaphoresis, dizziness and transferred to ICU after 4 units of packed red blood cells for further close monitoring and GI evaluation-track layer consulted for GI bleed/critical care management
08/20/2024.
GI bleed-suspect lower from recent colonoscopy/polypectomy
Anemia due to acute blood loss
Transaminitis
Conditions present prior to admission:
IgA nephropathy.
End-stage renal disease on hemodialysis.
Diabetes.
Hypertension.
Secondary hyperparathyroidism.
Hyperphosphatemia.
Gout.
Appendectomy. Left upper extremity AV fistula.
Plan
Patient will be admitted to medical intensive care with active bleeding, critically ill and in need of resuscitation
Supplemental oxygen as needed
Aspiration precautions
Incentive spirometry
Monitor hemoglobin
Transfuse packed red blood cells and FFP as needed
Monitor coagulopathy
GI evaluation ongoing
CT abdomen noted with active bleeding-see below
Colonoscopy per GI
Nephrology evaluation ongoing
Hemodialysis per nephrology
DVT prophylaxis-mechanical
GI prophylaxis
Nutrition per GI
Early mobilization once hemodynamically stable
Critical care statement: A total of 55 minutes of critical care time was provided for this patient today. This includes management of unstable vital signs, management of transfusions, evaluation of the patient at bedside, reviewing the patient's
pertinent medical records including radiographs, management of transfusions, management of hemodynamic instability, microbiology, laboratory evaluations, and discussion with primary team, consultants, pharmacy, nutrition, physical therapy, case
management, charge nurse, critical care nursing, and respiratory therapy.
Diagnostic data:
Chest x-ray 08/18/2024-mild vascular congestion
CT abdomen and pelvis 08/19/2024-CT angiogram evidence for active gastrointestinal bleeding during this exam located in the proximal transverse colon adjacent to polypectomy clips, colonic diverticulosis, innumerable small bilateral renal cysts
Data Reviewed
-
Radiology: Report reviewed by me
CT Scan: Report reviewed by me
Medical Tests (Nuc Med, Echo etc): Report reviewed by me
Labs: Labs reviewed by me
Old Records: Reviewed
Critical Care Time (in minutes): 55
[2024-08-20] MEDS: SENSIPAR PO (07:45)
[2024-08-20] MEDS: ZYLOPRIM PO (07:46)
--- NOTE | 2024-08-20 07:48 | W.PN.NEPH.PH ---
Today's Communication / Plan
-
Dialysis tomorrow
Blood products as needed
Hemodynamically stable
Assessment/Plan
-
Assessment
ESRD
Anemia.
GI bleed
diabetes mellitus type 2
Elevated LFTs
Plan
transfuse packed red blood cells, hgb ~8
Dialysis set for Friday,orders provided
Status post abdominal arteriogram: Bleed appears to be coming from proximal transverse colon adjacent to polypectomy clips
Follow LFTs
Hemodynamically stable
Continues with abdominal pain
Total 4 units transfused overnight
-
-
Date of Service: August 20, 2024
CC / HPI / ROS
-
Chief Complaint:
ESRD
History of Present Illness:
ESRD on Friday schedule
Hemodynamically stable
Hemoglobin 8.1 following 4 units of blood
Review of Systems:
Abdominal pain noted
No fever
No shortness of breath or chest
Labs
-
Labs:
WBC 8.5 10^3/uL (4.8-10.8) 08/20/24 03:04
RBC 2.57 10^6/uL (4.70-6.10) L 08/20/24 03:04
Plt Count 114 10^3/uL (130-400) L 08/20/24 03:04
Sodium 137 mmol/L (135-145) 08/20/24 04:31
Potassium 4.9 mmol/L (3.5-5.1) D 08/20/24 04:31
Chloride 95 mmol/L (98-107) L 08/20/24 04:31
Carbon Dioxide 31 mmol/L (22-30) H 08/20/24 04:31
BUN 46 mg/dl (9-20) H 08/20/24 04:31
Creatinine 5.9 mg/dL (0.7-1.3) H* 08/20/24 04:31
eGFR 10.37 08/20/24 04:31
Glucose 93 mg/dl (70-99) 08/20/24 04:31
Calcium 7.5 mg/dl (8.4-10.2) L 08/20/24 04:31
Phosphorus 6.3 mg/dl (2.5-4.5) H 08/20/24 04:31
Albumin 2.5 g/dl (3.5-5.0) L 08/20/24 04:31
Physical Exam
-
Vital Signs:
Vital Signs
Temp Pulse Resp BP Pulse Ox
98.2 F 87 16 121/75 100
08/20/24 07:34 08/20/24 06:15 08/20/24 06:15 08/20/24 06:00 08/20/24 06:15
Cardiovascular:: Regular rate and rhythm
Respiratory:: Bilateral: CTA
Lung Excursion:: Normal
Abdomen:: Tender
Bowel Sounds:: Decreased
Extremity Edema:: None: Bilateral:
Bain Catheter: No
[2024-08-20 08:03] LABS: Glucose - Point of Care 117 mg/dl (70-99)
--- NOTE | 2024-08-20 08:22 | PTCARENOTE ---
Assisted pt. x1, stand by assist to C this AM for BM; denied dizziness/lightheadedness; BP stable. Stool liquid dark red, no clots. S/P transfer back to bed, pt w abrupt onset nausea w mod amt emesis into commode; unable to discern color of
emesis. Report given to GI laboratory administrative director and pt. transported to GI lab. Above findings relayed to GI MD, Dr. NAVAS. Awaiting report from GI lab.
[2024-08-20 08:31] LABS: Hematocrit 18.5 % (39.0-52.0); Hemoglobin 6.3 g/dL (13.0-18.0)
--- NOTE | 2024-08-20 08:46 | W.PN.UPDATE ---
Update Note
Progress Note Update
He was brought to GI suite for colonoscopy
He c/o 8 out of 10 diffuse umbilical abd pain that started at 5AM today. Not relieved with defecation
Abd soft and VSS no tachy. Recommend urgent upright AXR or L lateral to r/o free air first then if negative can return for colonoscopy later today
Above d/w RN
--- NOTE | 2024-08-20 09:36 | PTCARENOTE ---
pt w abd pain on arrival to GI Lab. ordered abd x-ray prior to GI lab intervention. Pt RN transported from GI lab to x-ray and back to rm [id number]. Awaiting results. Pt.'s call simmons placed back w in reach.
--- NOTE | 2024-08-20 10:50 | W.PN.HOSP.TC ---
Today's Communication/Plan
-
Post polypectomy site in distal descending colon w/ bleeding: S/p 3mL of epi injection and 4 hemoclips.
CLD
Monitor CBC, maintain MAP >65
monitor LFTS
Assessment / Plan
Assessment / Plan
Physical Exam
General: Comfortable and Conversant
HEENT: Anicteric and Moist mucous membranes
Respiratory: Clear and Non Labored Respirations
Cardiac: S1/S2 and Regular Rhythm
GI: Soft and Non Tender
Musculoskeletal: No Clubbing, No Cyanosis, No Edema and Other (LUE AV Fistula with good thrill)
Skin: Warm and Dry
Neuro: Awake, Alert, Oriented and Nonfocal/grossly intact
Psych: Calm
#Rectal Bleeding, likely post-polypectomy bleed
-Consult GI
--Colonoscopy 08/20 :
- diverticulosis in the entire examined colon.
- Old blood and clot seen.
- Post polypectomy site in proximal descending colon
appeared not bleeding with clip in place.
- Post polypectomy site in distal descending colon
with adherant blood. S/p 3mL of epi injection and 4
hemoclips.
�Continue to trend CBC
� Start of liquid diet
� Maintain MAP greater than 65
#Symptomatic Acute Blood Loss Anemia
-Transfuse 2 additional units PRBCs; Total 4 units
-Trend serial Hgb
-Maintain HGB >7
-Map Greater than 65
- see plan above
Transaminitis
-no abdominal tenderness
-Check Hepatitis Serologies
-Most likely shock liver
-monitor now that hopeful HgB remains stable
ESRD on HD MoWeFr
-Consult Nephrology
Secondary Hyperparathyroidism
-Continue cinacalcet
Hyperphosphatemia
-Continue sevelamer
Essential Hypertension
-Hold nifedipine
Diabetes Mellitus, type II
-Monitor sugars and continue coverage insulin
DVT proph: SCDs
Code Status: Full Code
Total time spent on today's encounter was 50 minutes which included time spent in counseling the patient/family regarding diagnosis and treatment plan as listed above, goals of care, and symptom management. Case was discussed with nursing staff,
specialists, and care coordinators/case management. All labs and imaging personally reviewed by me. Remainder the time spent in detailed review of previous records, lab data, imaging, and other medical provider documentation.
Anticipated Discharge: Within 24 hours
Subjective/Interval History
-
Date of Service: August 20, 2024
Continued anemia, bloody bowel movements, abdominal pain this morning.
Objective Data
-
Labs:
Laboratory Results
08/20/24 08/20/24 08/20/24
03:04 03:04 03:04
WBC 8.5
Hgb 8.1 L D Cancelled
Hct 23.6 L Cancelled
Plt Count 114 L
PT 19.1 H
INR 1.55
APTT 36.5 H
Sodium Cancelled
Potassium Cancelled
Chloride Cancelled
Carbon Dioxide Cancelled
BUN Cancelled
Creatinine Cancelled
Glucose Cancelled
Calcium Cancelled
Total Bilirubin Cancelled
AST Cancelled
ALT Cancelled
Alkaline Phosphatase Cancelled
08/20/24 08/20/24 08/20/24
04:31 08:00 10:23
WBC
Hgb 6.3 L* D Cancelled
Hct 18.5 L*
Plt Count
PT
INR
APTT
Sodium 137
Potassium 4.9 D
Chloride 95 L
Carbon Dioxide 31 H
BUN 46 H
Creatinine 5.9 H*
Glucose 93
Calcium 7.5 L
Total Bilirubin 1.1
AST 444 H
ALT 734 H*
Alkaline Phosphatase 54
08/20/24 08/20/24 08/20/24
12:00 13:27 16:23
WBC
Hgb Pending Cancelled Cancelled
Hct Cancelled
Plt Count
PT
INR
APTT
Sodium
Potassium
Chloride
Carbon Dioxide
BUN
Creatinine
Glucose
Calcium
Total Bilirubin
AST
ALT
Alkaline Phosphatase
08/20/24 08/20/24
18:00 22:23
WBC
Hgb Pending Cancelled
Hct
Plt Count
PT
INR
APTT
Sodium
Potassium
Chloride
Carbon Dioxide
BUN
Creatinine
Glucose
Calcium
Total Bilirubin
AST
ALT
Alkaline Phosphatase
Vital Signs:
Vital Signs
Temp Pulse Resp BP Pulse Ox
98.2 F 87 16 121/75 100
08/20/24 07:34 08/20/24 06:15 08/20/24 06:15 08/20/24 06:00 08/20/24 08:31
I&O
08/19/24 08/20/24 08/21/24
06:59 06:59 06:59
Intake Total 1240 / 1240
Balance 1240 / 1240
Review of Systems
-
History Source: Patient
All other systems: Not reviewed unless documented
Data Reviewed
-
Diagnostic Radiology: Image personally visualized and interpreted
CT Scan: Image personally visualized and interpreted and Report Reviewed by me
Labs: Labs Reviewed by me
--- NOTE | 2024-08-20 11:37 | PTCARENOTE ---
Addendum entered by Tonya Hurst RN 08/20/24 12:47:
Report received from GI laboratory associate. Pt. transported back to rm [id number] s/p GI lab. GI to update family. Further orders received to advance diet. 1 unit PRBC remains infusing. Call simmons placed back w in reach.
Original Note:
Pt. RN transported back to GI lab w 1 unit PRBC infusing- see pink sheet. Awaiting report from GI laboratory associate.
[2024-08-20 11:43] LABS: Hepatitis A IgM Antibody Negative (Negative); Hepatitis B Core Ab, IgM Negative (Negative)
[2024-08-20 12:06] LABS: Hepatitis B Surface Antibody Positive; Hepatitis C Antibody Negative (Negative)
[2024-08-20 12:40] LABS: Hepatitis B Surface Antigen Negative (Negative)
[2024-08-20 12:57] LABS: Glucose - Point of Care 105 mg/dl (70-99)
--- NOTE | 2024-08-20 13:12 | CM ---
CM following re: discharge planning.
reviewed pt's chart, met with pt.
pt is a 59 year old male, admitted with primary dx of GIB
Pt reports he lives with spouse and 2 children in a rented basement of a [address]. pt described himself as independent in all areas [employer]. drives, works.
PCP: Alex Todd
Pharmacy: [facility]
D/C plan: home with anticipated no needs. family to transport at discharge.
CM will follow with discharge plan updates as hospitalization progresses
--- NOTE | 2024-08-20 15:29 | PTCARENOTE ---
Unable to obtain 1200 h&h d/t mx blood transfusions. Dr. Carlson made aware, next h&h for 1800 s/p blood transfusions. Pt. tolerating ice chips/clears. Ordering full liq for dinner, awaiting tray. 2nd unit PBC transfusing- see TAR. Call iris rosado
in reach.
[2024-08-20 18:14] LABS: Glucose - Point of Care 239 mg/dl (70-99)
[2024-08-20] MEDS: RENVELA 800 MG PO (18:16)
[2024-08-20 18:39] LABS: Hemoglobin 7.8 g/dL (13.0-18.0)
[2024-08-20] MEDS: NOVOLOG FLEXPEN-LOW RESISTANCE 2 UNITS SC (19:11)
[2024-08-21] VITALS (23 sets, daily range): BP systolic 123–152; BP diastolic 65–86; BMI 29.9
[2024-08-21 00:52] LABS: Hemoglobin 7.5 g/dL (13.0-18.0)
--- NOTE | 2024-08-21 00:53 | PTCARENOTE ---
08/20/24 patient resting comfortably in bed, offers no c/o pain. patient no longer having any nausea or emesis. minor discomfort to lower abdomen upon palpation, not requesting any pain medication. patient eating dinner, no difficulty or
stomach upset..
2200- pt using BSC and urinal, scant urine output, no bloody stool, liquid brown bm, small amount, patient passing gas at this time. no further bloody stools.
[2024-08-21 05:17] LABS: Hematocrit 21.7 % (39.0-52.0); Hemoglobin 7.5 g/dL (13.0-18.0); Mean Corp Hgb Conc. 34.6 g/dL (33.0-37.0); Mean Corpuscular Hgb 31.1 pg (27.0-31.0); Mean Platelet Volume 11.1 fL (7.4-10.4); Platelet Count 105 10^3/uL (130-400); Red Blood Cell Count 2.41 10^6/uL (4.70-6.10); Red Cell Dist. Width 16.2 % (11.5-14.5); White Blood Cell Count 11.5 10^3/uL (4.8-10.8)
[2024-08-21 05:43] LABS: AST (SGOT) 472 U/L (17-59); Albumin 2.3 g/dl (3.5-5.0); Alkaline Phosphatase 56 U/L (38-126); Blood Urea Nitrogen 59 mg/dl (9-20); Calcium 7.1 mg/dl (8.4-10.2); Carbon Dioxide 28 mmol/L (22-30); Chloride 95 mmol/L (98-107); Estimated Creatinine Clearance 9 ml/min; Glucose 83 mg/dl (70-99); Potassium 5.2 mmol/L (3.5-5.1); Sodium 136 mmol/L (135-145); Total Bilirubin 0.5 mg/dl (0.2-1.3); Total Protein 4.1 g/dl (6.3-8.2); eGFR 7.09
[2024-08-21 05:55] LABS: ALT (SGPT) 1163 U/L (0-50)
--- NOTE | 2024-08-21 07:10 | W.PN.INTV ---
Today's Communication / Plan
Recommendations
Monitor for bleeding
Diet per GI
Hemodialysis
Follow hemoglobin
Transfuse as needed
If remains stable then transfer to telemetry-call pulmonary if respiratory issues arise
Assessment
-
59-year-old male with history of end-stage renal disease, hypertension, diabetes who presented with rectal bleeding. Of note the patient had a colonoscopy on August 09 at which time several large polyps were removed requiring clipping. The
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
08/20/2024.
GI bleed-suspect lower from recent colonoscopy/polypectomy
Colonoscopy 08/20/2024-post polypectomy site in distal descending colon with bleeding status post appendectomy/4 hemoclips
Anemia due to acute blood loss
Transaminitis
Conditions present prior to admission:
IgA nephropathy.
End-stage renal disease on hemodialysis.
Diabetes.
Hypertension.
Secondary hyperparathyroidism.
Hyperphosphatemia.
Gout.
Appendectomy. Left upper extremity AV fistula.
Plan
Hemodynamically improved
Supplemental oxygen as needed
Aspiration precautions
Incentive spirometry
Follow hemoglobin
Transfuse packed red blood cells and FFP as needed
Monitor coagulopathy
GI evaluation ongoing-correspondence reviewed
CT abdomen noted with active bleeding-see below
Colonoscopy per GI-08/20/2024-nonbleeding internal hemorrhoids, multiple diverticuli, old post polypectomy site appeared not bleeding with clip in place, 2 hemoclips seen distal post polypectomy site and 1 area of clot seen, epinephrine provided as
well as 4 hemoclips placed
Nephrology evaluation ongoing
Hemodialysis 08/21/2024 per nephrology
DVT prophylaxis-mechanical
GI prophylaxis
Nutrition per GI
Early mobilization once hemodynamically stable
If remains stable without active bleeding tolerating hemodialysis then transfer to telemetry-call pulmonary if respiratory issues arise
Reviewed the patient's pertinent medical records including radiographs, management of transfusions, management of hemodynamic instability, microbiology, laboratory evaluations, and discussion with primary team, consultants, pharmacy, nutrition,
physical therapy, case management, charge nurse, critical care nursing, and respiratory therapy.
Diagnostic data:
Chest x-ray 08/18/2024-mild vascular congestion
Chest x-ray 08/20/2024-no acute radiographic abnormality in the chest
CT abdomen and pelvis 08/19/2024-CT angiogram evidence for active gastrointestinal bleeding during this exam located in the proximal transverse colon adjacent to polypectomy clips, colonic diverticulosis, innumerable small bilateral renal cysts
Subjective Dataa
Subjective Data
Date of Service:
Date of Service: August 21, 2024
Chief Complaint: Dimensional Inspector Follow Up and Pulmonary Follow Up
Subjective:
Feels better, no complaints of shortness of breath, chest pain or abdominal pain
Review of Systems
General: Other (Per HPI)
Objective Data
Data Reviewed
Vital Signs / I&O / Oxygen:
Vital Signs
Temp Pulse Resp BP Pulse Ox
98.7 F 78 20 123/65 100
08/21/24 03:21 08/20/24 21:00 08/20/24 21:00 08/20/24 21:00 08/20/24 21:11
Intake and Output
08/20/24 08/21/24 08/22/24
06:59 06:59 06:59
Intake Total 1240 / 1240 250 / 250
Balance 1240 / 1240 250 / 250
SaO2 100
Nasal Cannula flow liters per 2
minute
Physical Exam
General: Respiratory Distress (n) and Comfortable
HEENT: Normocephalic, Anicteric and Moist Mucous Membranes
Cardiovascular: Regular Rhythm
Respiratory: Wheeze (n), Crackles (n), Rhonchi (n), Non-Labored Respirations, Accessory Resp Muscle Use (n) and Stridor (n)
GI: Soft, Non Distended and Non Tender
Neurology: Awake, Alert and No Motor Deficits
Skin: Warm, Good Color, Cyanosis (n), Jaundice (n) and Rash (n)
Labs/Micro/Reports
Lab Data
08/21/24 04:58
08/21/24 04:58
[2024-08-21 07:49] LABS: Glucose - Point of Care 106 mg/dl (70-99)
[2024-08-21] MEDS: RETACRIT 10000 UNITS IV (08:56)
[2024-08-21] MEDS: NOVOLOG FLEXPEN-LOW RESISTANCE SC ×2 (09:24→12:04)
--- NOTE | 2024-08-21 09:51 | W.PN.GI.CBS2 ---
Today's Communication / Plan
-
Adv to low residue diet today
Continue to trend H/H
Monitor LFT post HD today
Add on iron panel
Assessment / Plan
-
59-year-old male with history of end-stage renal disease on HD, diabetes, hypertension admitted with bright red blood per rectum for 2 days. Patient underwent colonoscopy 08/09/2024 with removal of 3 large pedunculated polyps in transverse
colon/sigmoid colon. Patient was doing well until yesterday when he started having bright red blood per rectum.
Impression
-- Bright red blood per rectum -likely post polypectomy bleeding (colonoscopy with polypectomy 08/09/2024 )
-- Elevated liver test -possible shock liver
CTA with normal liver and thus far viral hepatitis serologies negative
-- History of chronic anemia
-- ESRD on HD
Recommendations
- Serial H/H and LFT
- Adv to LRD today
- Monitor stool for signs of rebleeding
- Add on iron panel
Will follow with you
Subjective
Subjective
Date of Service: August 21, 2024
He is getting dialysis today. Denies abd pain. No nausea/vomiting
Objective
Data Reviewed
Laboratory Data:
Laboratory Results
08/21/24 04:58
08/21/24 04:58
Laboratory Results
PT 19.1 Sec (11.4-14.6) H 08/20/24 03:04
INR 1.55 08/20/24 03:04
APTT 36.5 Sec (23.4-35.0) H 08/20/24 03:04
Phosphorus 6.3 mg/dl (2.5-4.5) H 08/20/24 04:31
Magnesium 2.1 mg/dl (1.6-2.3) 08/20/24 04:31
Total Bilirubin 0.5 mg/dl (0.2-1.3) 08/21/24 04:58
AST 472 U/L (17-59) H 08/21/24 04:58
ALT 1163 U/L (0-50) H* 08/21/24 04:58
Alkaline Phosphatase 56 U/L (38-126) 08/21/24 04:58
Vital Signs and I&O:
Vital Signs
Temp Pulse Resp BP Pulse Ox
98.0 F 78 20 123/65 100
08/21/24 08:08 08/20/24 21:00 08/20/24 21:00 08/20/24 21:00 08/20/24 21:11
I&O
08/20/24 08/21/24 08/22/24
06:59 06:59 06:59
Intake Total 1240 / 1240 250 / 250
Balance 1240 / 1240 250 / 250
Physical Exam
Physical Exam
GEN: No acute distress, conversant, pleasant
HEENT: anicteric, extraocular movements intact, clear oropharynx without exudates
GI: soft, mildly-distended, not tender to palpation, normal active bowel sounds, no hepatosplenomegaly
EXT: warm, well perfused, trace edema bilaterally
NEURO: AAOx3, non-focal
--- NOTE | 2024-08-21 09:53 | PTCARENOTE ---
pt in bed Dialysis in progress pt AAO x3 denies pain. No blood BM over night will monitor for this shift.
--- NOTE | 2024-08-21 10:13 | W.PN.NEPH.HD ---
Assessment
-
pt seen during HD
vitals stable
monitor h/h ,prn transfusion
no heparin
high dose SHRAVAN
Progress Note - Hemodialysis
-
Date of Service: August 21, 2024
Duration: 30 minutes and 3 hours
Potassium Bath: 2
Calcium Bath: 2.5
Opti-Dialyzer: 160
Ultrafiltration: Other (1-2kg)
Blood Flow: 400
Dialysate Flow: 600
Heparin: no
EPO: [id number]
[2024-08-21 10:40] LABS: Creatine Phosphokinase 60 U/L (55-170); Iron 152 ug/dl (49-181)
[2024-08-21 10:47] LABS: Percent Saturation 89 % (20-50); Total Iron Binding Capacity 170 ug/dl (261-462)
[2024-08-21 11:44] LABS: Folate 17.5 ng/ml (2.76-20); Vitamin B12 > 1000 pg/ml (239-931)
[2024-08-21 11:55] LABS: Glucose - Point of Care 86 mg/dl (70-99)
[2024-08-21] MEDS: ZYLOPRIM 200 MG PO (12:02)
[2024-08-21] MEDS: B COMPLEX w/VITAMIN C 1 CAPLET PO (12:02)
[2024-08-21] MEDS: SENSIPAR 30 MG PO (12:02)
--- NOTE | 2024-08-21 14:16 | W.PN.HOSP.TC ---
Today's Communication/Plan
-
LRD
Monitor Liver Enzymes
Monitor CBC
Assessment / Plan
Assessment / Plan
Physical Exam
General: Comfortable and Conversant
HEENT: Anicteric and Moist mucous membranes
Respiratory: Clear and Non Labored Respirations
Cardiac: S1/S2 and Regular Rhythm
GI: Soft and Non Tender
Musculoskeletal: No Clubbing, No Cyanosis, No Edema and Other (LUE AV Fistula with good thrill)
Skin: Warm and Dry
Neuro: Awake, Alert, Oriented and Nonfocal/grossly intact
Psych: Calm
#Rectal Bleeding, likely post-polypectomy bleed
-Consult GI
--Colonoscopy 08/20 :
- diverticulosis in the entire examined colon.
- Old blood and clot seen.
- Post polypectomy site in proximal descending colon
appeared not bleeding with clip in place.
- Post polypectomy site in distal descending colon
with adherent blood. S/p 3mL of epi injection and 4
hemoclips.
�Continue to trend CBC
� Advance to low residue diet
� Maintain MAP greater than 65
#Symptomatic Acute Blood Loss Anemia
-Transfused total 4 units
-Trend serial Hgb
-Maintain HGB >7
-Map Greater than 65
- see plan above
Transaminitis
-no abdominal tenderness
-Check Hepatitis Serologies
-Most likely shock liver
-monitor now that hopeful HgB remains stable and with HD
ESRD on HD MoWeFr
-Consult Nephrology
Hyperkalemia
� HD today
Secondary Hyperparathyroidism
-Continue cinacalcet
Hyperphosphatemia
-Continue sevelamer
Essential Hypertension
-Hold nifedipine
Diabetes Mellitus, type II
-Monitor sugars and continue coverage insulin
DVT proph: SCDs
Code Status: Full Code
Anticipated Discharge: 24 - 48 hours
Subjective/Interval History
-
Date of Service: August 21, 2024
Feels better, abdominal pain resolved
Objective Data
-
Labs:
Laboratory Results
08/21/24
04:58
WBC 11.5 H
Hgb 7.5 L
Hct 21.7 L
Plt Count 105 L
Sodium 136
Potassium 5.2 H
Chloride 95 L
Carbon Dioxide 28
BUN 59 H
Creatinine 8.1 H*
Glucose 83
Calcium 7.1 L
Total Bilirubin 0.5
AST 472 H
ALT 1163 H*
Alkaline Phosphatase 56
Vital Signs:
Vital Signs
Temp Pulse Resp BP Pulse Ox
98.1 F 78 20 123/65 100
08/21/24 11:27 08/20/24 21:00 08/20/24 21:00 08/20/24 21:00 08/20/24 21:11
I&O
08/20/24 08/21/24 08/22/24
06:59 06:59 06:59
Intake Total 1240 / 1240 250 / 250
Balance 1240 / 1240 250 / 250
Review of Systems
-
History Source: Patient
All other systems: Not reviewed unless documented
Data Reviewed
-
Diagnostic Radiology: Image personally visualized and interpreted
CT Scan: Image personally visualized and interpreted and Report Reviewed by me
Labs: Labs Reviewed by me
[2024-08-21 17:09] LABS: Glucose - Point of Care 177 mg/dl (70-99)
--- NOTE | 2024-08-21 17:10 | PTCARENOTE ---
patient transfer room telemetry floor 4th floor. All belonging transfer with patient. transfer via w/c . AAO x3 denies pain. no s/s of bleed. left upper arm AV shunt pressure dressing intact
[2024-08-21] MEDS: RENVELA 800 MG PO (17:42)
[2024-08-21] MEDS: NOVOLOG FLEXPEN-LOW RESISTANCE 1 UNITS SC (17:42)
--- NOTE | 2024-08-21 19:22 | PTCARENOTE ---
Pt arrived from ICU. Assesment unchanged while here since transfer.
[2024-08-21 21:30] LABS: Glucose - Point of Care 202 mg/dl (70-99)
[2024-08-22 03:35] VITALS: BP 140/75
[2024-08-22 05:34] VITALS: BMI 28.3
[2024-08-22 06:38] LABS: Hematocrit 21.6 % (39.0-52.0); Hemoglobin 7.1 g/dL (13.0-18.0); Mean Corp Hgb Conc. 32.9 g/dL (33.0-37.0); Mean Corpuscular Hgb 31.1 pg (27.0-31.0); Mean Corpuscular Volume 94.7 fL (80.0-94.0); Mean Platelet Volume 10.8 fL (7.4-10.4); Platelet Count 107 10^3/uL (130-400); Red Blood Cell Count 2.28 10^6/uL (4.70-6.10); Red Cell Dist. Width 16.2 % (11.5-14.5); White Blood Cell Count 8.5 10^3/uL (4.8-10.8)
[2024-08-22 07:00] VITALS: BP 140/85
[2024-08-22 07:18] LABS: Albumin 2.5 g/dl (3.5-5.0); Alkaline Phosphatase 66 U/L (38-126); Blood Urea Nitrogen 30 mg/dl (9-20); Calcium 7.5 mg/dl (8.4-10.2); Carbon Dioxide 31 mmol/L (22-30); Chloride 97 mmol/L (98-107); Estimated Creatinine Clearance 12 ml/min; Glucose 95 mg/dl (70-99); Potassium 4.2 mmol/L (3.5-5.1); Sodium 136 mmol/L (135-145); Total Bilirubin 0.5 mg/dl (0.2-1.3); Total Protein 4.4 g/dl (6.3-8.2); eGFR 10.81
[2024-08-22 07:33] LABS: ALT (SGPT) 1856 U/L (0-50); AST (SGOT) 831 U/L (17-59)
[2024-08-22 07:50] LABS: Glucose - Point of Care 115 mg/dl (70-99)
[2024-08-22] MEDS: NOVOLOG FLEXPEN-LOW RESISTANCE SC (07:56)
[2024-08-22] MEDS: ZYLOPRIM 200 MG PO (08:15)
[2024-08-22] MEDS: SENSIPAR 30 MG PO (08:15)
[2024-08-22 09:36] LABS: Reticulocyte Count 5.1 % (0.4-2.8)
[2024-08-22 09:41] LABS: INR 1.18; PT 15.3 Sec (11.4-14.6)
[2024-08-22 09:42] LABS: APTT 32.2 Sec (23.4-35.0); Fibrinogen 313 MG/DL (199-459)
[2024-08-22 09:58] LABS: LDH 1220 U/L (120-246)
--- NOTE | 2024-08-22 12:07 | W.PN.NEPH.PH ---
Today's Communication / Plan
-
HD friday
Assessment/Plan
-
Assessment
ESRD
Anemia.
GI bleed
diabetes mellitus type 2
Elevated LFTs
Plan:
monitor h/h, prn trasnfusion
LFTs are increasing and ferritin is high-GI follows
LDH high ?hemolysis but normal fibrinogen
HD TTS schedule, no heparin
Hemodynamically stable
on sensipar and renvela
-
-
Date of Service: August 22, 2024
CC / HPI / ROS
-
Chief Complaint:
ESRD
History of Present Illness:
ESRD on Friday schedule
Hemodynamically stable
Hemoglobin 7.1 -decreasing slowly
plt remains low 107
Review of Systems:
No fever
No shortness of breath or chest
no blood in stools
Labs
-
Labs:
WBC 8.5 10^3/uL (4.8-10.8) 08/22/24 06:19
RBC 2.28 10^6/uL (4.70-6.10) L 08/22/24 06:19
Hgb 7.1 g/dL (13.0-18.0) L 08/22/24 06:19
Hct 21.6 % (39.0-52.0) L 08/22/24 06:19
Plt Count 107 10^3/uL (130-400) L 08/22/24 06:19
Sodium 136 mmol/L (135-145) 08/22/24 06:19
Potassium 4.2 mmol/L (3.5-5.1) 08/22/24 06:19
Chloride 97 mmol/L (98-107) L 08/22/24 06:19
Carbon Dioxide 31 mmol/L (22-30) H 08/22/24 06:19
BUN 30 mg/dl (9-20) H 08/22/24 06:19
Creatinine 5.7 mg/dL (0.7-1.3) H* 08/22/24 06:19
eGFR 10.81 08/22/24 06:19
Glucose 95 mg/dl (70-99) 08/22/24 06:19
Calcium 7.5 mg/dl (8.4-10.2) L 08/22/24 06:19
Phosphorus 6.3 mg/dl (2.5-4.5) H 08/20/24 04:31
Albumin 2.5 g/dl (3.5-5.0) L 08/22/24 06:19
Physical Exam
-
Vital Signs:
Vital Signs
Temp Pulse Resp BP Pulse Ox
98.7 F 82 18 140/85 96
08/22/24 07:00 08/22/24 07:00 08/22/24 07:00 08/22/24 07:00 08/22/24 07:00
Cardiovascular:: Regular rate and rhythm
Respiratory:: Bilateral: CTA
Lung Excursion:: Normal
Abdomen:: Nontender and Soft
Extremity Edema:: None: Bilateral:
Bain Catheter: No
Other Findings::
UE edema
[2024-08-22 12:44] LABS: Glucose - Point of Care 186 mg/dl (70-99)
[2024-08-22 12:49] LABS: Glucose - Point of Care 155 mg/dl (70-99)
[2024-08-22] MEDS: NOVOLOG FLEXPEN-LOW RESISTANCE 1 UNITS SC ×2 (12:50→17:20)
--- NOTE | 2024-08-22 14:08 | W.PN.HOSP.TC ---
Today's Communication/Plan
-
LRD
monitor LFTS, HgB
Assessment / Plan
Assessment / Plan
Physical Exam
General: Comfortable and Conversant
HEENT: Anicteric and Moist mucous membranes
Respiratory: Clear and Non Labored Respirations
Cardiac: S1/S2 and Regular Rhythm
GI: Soft and Non Tender
Musculoskeletal: No Clubbing, No Cyanosis, No Edema and Other (LUE AV Fistula with good thrill)
Skin: Warm and Dry
Neuro: Awake, Alert, Oriented and Nonfocal/grossly intact
Psych: Calm
#Rectal Bleeding, likely post-polypectomy bleed
-Consult GI
--Colonoscopy 08/20 :
- diverticulosis in the entire examined colon.
- Old blood and clot seen.
- Post polypectomy site in proximal descending colon
appeared not bleeding with clip in place.
- Post polypectomy site in distal descending colon
with adherent blood. S/p 3mL of epi injection and 4
hemoclips.
�Continue to trend CBC
� Tolerating low residue diet
� Maintain MAP greater than 65
#Symptomatic Acute Blood Loss Anemia
-Transfused total 4 units
-Trend serial Hgb
-Maintain HGB >7
-Map Greater than 65
- see plan above
Transaminitis
-no abdominal tenderness
-Check Hepatitis Serologies - negative
-Never required pressors
-Ferritin high - LDH elevated
-CTM for now, may need other interventions if LFTS cont to rise
ESRD on HD MoWeFr
-Consult Nephrology
Hyperkalemia
� HD
Secondary Hyperparathyroidism
-Continue cinacalcet
Hyperphosphatemia
-Continue sevelamer
Essential Hypertension
-Hold nifedipine
Diabetes Mellitus, type II
-Monitor sugars and continue coverage insulin
DVT proph: SCDs
Code Status: Full Code
Total time spent on today's encounter was 50 minutes which included time spent in counseling the patient/family regarding diagnosis and treatment plan as listed above, goals of care, and symptom management. Case was discussed with nursing staff,
specialists, and care coordinators/case management. All labs and imaging personally reviewed by me. Remainder the time spent in detailed review of previous records, lab data, imaging, and other medical provider documentation.
Anticipated Discharge: > 48 hours
Subjective/Interval History
-
Date of Service: August 22, 2024
No more bloody bowel movements
Objective Data
-
Labs:
Laboratory Results
08/22/24 08/22/24
06:19 09:22
WBC 8.5
Hgb 7.1 L
Hct 21.6 L
Plt Count 107 L
PT 15.3 H
INR 1.18
APTT 32.2
Sodium 136
Potassium 4.2
Chloride 97 L
Carbon Dioxide 31 H
BUN 30 H
Creatinine 5.7 H*
Glucose 95
Calcium 7.5 L
Total Bilirubin 0.5
AST 831 H*
ALT 1856 H*
Alkaline Phosphatase 66
Vital Signs:
Vital Signs
Temp Pulse Resp BP Pulse Ox
98.7 F 82 18 140/85 96
08/22/24 07:00 08/22/24 07:00 08/22/24 07:00 08/22/24 07:00 08/22/24 07:00
I&O
08/21/24 08/22/24 08/23/24
06:59 06:59 06:59
Intake Total 250 / 250 720 / 720
Output Total 450 / 450
Balance 250 / 250 270 / 270
Review of Systems
-
History Source: Patient
All other systems: Not reviewed unless documented
Data Reviewed
-
Diagnostic Radiology: Image personally visualized and interpreted
CT Scan: Image personally visualized and interpreted and Report Reviewed by me
Labs: Labs Reviewed by me
--- NOTE | 2024-08-22 14:36 | W.PN.GI.CBS2 ---
Today's Communication / Plan
-
Check acetaminophen level, mono test, CK
Trend LFTs
Assessment / Plan
-
59-year-old male with history of end-stage renal disease on HD, diabetes, hypertension admitted with bright red blood per rectum for 2 days. Patient underwent colonoscopy 08/09/2024 with removal of 3 large pedunculated polyps in transverse
colon/sigmoid colon. Patient was doing well until yesterday when he started having bright red blood per rectum.
Impression
-- Delayed post polypectomy bleeding
Colonoscopy repeated 08/20 with hemoclips x4
-- Elevated liver test
Unclear cause. Clinically suspect related to hypoperfusion during LGIB (s/p 6u PRBC on this admission)
CTA and abd US with normal liver contour patent vasculature
Negative hepatitis serologies and KATIANA
-- History of chronic anemia
-- ESRD on HD
Recommendations
- Tolerating LRD
- H/H overall stable with now brown stool
- LFT rise in hepatocellular pattern noted. Check acetaminophen level, mono test and CK
- If LFTs continue to rise tomorrow consider MRI/MRCP though low yield given no abd pain
Will follow with you
Subjective
Subjective
Date of Service: August 22, 2024
Denies abd pain, nausea/vomiting. Tolerating a low residue diet. passed a brown BM today
Objective
Data Reviewed
Laboratory Data:
Laboratory Results
08/22/24 06:19
08/22/24 06:19
Laboratory Results
PT 15.3 Sec (11.4-14.6) H 08/22/24 09:22
INR 1.18 08/22/24 09:22
APTT 32.2 Sec (23.4-35.0) 08/22/24 09:22
Phosphorus 6.3 mg/dl (2.5-4.5) H 08/20/24 04:31
Magnesium 2.1 mg/dl (1.6-2.3) 08/20/24 04:31
Total Bilirubin 0.5 mg/dl (0.2-1.3) 08/22/24 06:19
AST 831 U/L (17-59) H* 08/22/24 06:19
ALT 1856 U/L (0-50) H* 08/22/24 06:19
Alkaline Phosphatase 66 U/L (38-126) 08/22/24 06:19
Vital Signs and I&O:
Vital Signs
Temp Pulse Resp BP Pulse Ox
98.7 F 82 18 140/85 96
08/22/24 07:00 08/22/24 07:00 08/22/24 07:00 08/22/24 07:00 08/22/24 07:00
I&O
08/21/24 08/22/24 08/23/24
06:59 06:59 06:59
Intake Total 250 / 250 720 / 720
Output Total 450 / 450
Balance 250 / 250 270 / 270
Physical Exam
Physical Exam
GEN: No acute distress, conversant , pleasant
HEENT: +icteric, extraocular movements intact, clear oropharynx without exudates
GI: soft, soft non-distended, not tender to palpation, normal active bowel sounds, no hepatosplenomegaly
EXT: warm, well perfused, trace edema bilaterally
NEURO: AAOx3, non-focal
[2024-08-22 15:00] VITALS: BP 151/78
[2024-08-22 16:57] LABS: Glucose - Point of Care 190 mg/dl (70-99)
[2024-08-22] MEDS: RENVELA 800 MG PO (17:21)
[2024-08-22 19:30] VITALS: BP 142/73
[2024-08-22 21:42] LABS: Glucose - Point of Care 132 mg/dl (70-99)
[2024-08-22 23:30] VITALS: BP 135/66
[2024-08-23 03:00] VITALS: BP 148/86
[2024-08-23 05:50] VITALS: BMI 28.6
[2024-08-23 07:41] VITALS: BP 155/82
[2024-08-23 08:16] LABS: Glucose - Point of Care 124 mg/dl (70-99)
[2024-08-23 08:17] LABS: Hemoglobin 7.3 g/dL (13.0-18.0); Mean Corp Hgb Conc. 33.2 g/dL (33.0-37.0); Mean Corpuscular Hgb 32.2 pg (27.0-31.0); Mean Corpuscular Volume 96.9 fL (80.0-94.0); Mean Platelet Volume 11.1 fL (7.4-10.4); Platelet Count 110 10^3/uL (130-400); Red Blood Cell Count 2.27 10^6/uL (4.70-6.10); Red Cell Dist. Width 16.4 % (11.5-14.5); White Blood Cell Count 7.8 10^3/uL (4.8-10.8)
[2024-08-23] MEDS: NOVOLOG FLEXPEN-LOW RESISTANCE SC (08:21)
[2024-08-23] MEDS: SENSIPAR 30 MG PO (08:22)
[2024-08-23] MEDS: ZYLOPRIM 200 MG PO (08:22)
[2024-08-23 08:29] LABS: INR 1.13; PT 14.8 Sec (11.4-14.6)
[2024-08-23 08:47] LABS: Monotest Negative (Negative)
[2024-08-23 09:02] LABS: AST (SGOT) 270 U/L (17-59); Albumin 2.9 g/dl (3.5-5.0); Alkaline Phosphatase 79 U/L (38-126); Blood Urea Nitrogen 45 mg/dl (9-20); Calcium 7.3 mg/dl (8.4-10.2); Carbon Dioxide 28 mmol/L (22-30); Chloride 96 mmol/L (98-107); Creatine Phosphokinase 61 U/L (55-170); Estimated Creatinine Clearance 7 ml/min; Glucose 105 mg/dl (70-99); Potassium 4.1 mmol/L (3.5-5.1); Sodium 136 mmol/L (135-145); Total Bilirubin 0.6 mg/dl (0.2-1.3); eGFR 5.93
[2024-08-23 09:12] LABS: ALT (SGPT) 1428 U/L (0-50)
[2024-08-23 11:16] VITALS: BP 155/77
[2024-08-23 11:39] LABS: Glucose - Point of Care 198 mg/dl (70-99)
--- NOTE | 2024-08-23 13:00 | W.PN.HOSP.TC ---
Today's Communication/Plan
-
LFT and H&H in AM, if further improving - d/c after HD
Assessment / Plan
Assessment / Plan
59yo M with PMHx of ESRD on HD via L AVF TTS, gout, anemia, HTN came with rectal bleed after colonoscopy, most likely postpolypectomy, that is later resolved after repeated colonoscopy on 08/20/24 with epi injection and hemoclip. Required 6 units
PRBC on this admission, hoowever no over shock, later developed significant LFT elevation, most likely 2/2 severe anemia since no other abdominal symptoms
A/P:
#Acute blood loss anemia 2/2 post-polypectomy bleed during recent colonoscopy
#Acute on chronic anemia
GI followed, treated bleeding on repeated colonoscopy
Follow and transfuse PRBC as needed
Epo as per nephro
serial H&H
#Chronic mild thrombocytopenia
follow up as oupatient
#ESRD on HD
nephro for HD
#Hypocalcemia
#Hyperkalemia
correct with HD
#Transaminitis
2/2 anemia
Hepatitis panel neg for acute disease, patient immune to HepB
Monoscreen neg
Follow LFT
No abd pain, no clinical bowel obstruction in spite ileus seen on abd XR - BS appropriate
Tolerating food
#DM type 2 with nephropathy
Accucheks, Insulin SS, DM diet
#Essential HTN
cont home meds
DVT ppx on SCDs 2/2 bleeding
Full code
I have spent at least 58min reviewing chart, test results, communication with consultants and direct patient care
Anticipated Discharge: Within 24 hours
Subjective/Interval History
-
Date of Service: August 23, 2024
Objective Data
-
Labs:
Laboratory Results
08/23/24
07:48
WBC 7.8
Hgb 7.3 L
Hct 22.0 L
Plt Count 110 L
PT 14.8 H
INR 1.13
Sodium 136
Potassium 4.1
Chloride 96 L
Carbon Dioxide 28
BUN 45 H
Creatinine 9.4 H*
Glucose 105 H
Calcium 7.3 L
Total Bilirubin 0.6
AST 270 H
ALT 1428 H*
Alkaline Phosphatase 79
Vital Signs:
Vital Signs
Temp Pulse Resp BP Pulse Ox
98.1 F 76 20 155/77 99
08/23/24 11:16 08/23/24 11:16 08/23/24 11:16 08/23/24 11:16 08/23/24 11:16
I&O
08/22/24 08/23/24 08/24/24
06:59 06:59 06:59
Intake Total 720 / 720 240 / 240
Output Total 450 / 450
Balance 270 / 270 240 / 240
Review of Systems
-
History Source: Patient
All other systems: Reviewed and negative
Physical Exam
-
HEENT: Normocephalic
Respiratory: Clear to Auscultation
Cardiac: Regular Rhythm
GI: Soft, Nontender and Nondistended
Genito-urinary: No Costovertebral Tender
Musculoskeletal: No Clubbing, No Cyanosis and No Edema
Neuro: Awake, Alert, Oriented and AO x 3
Psych: Calm
[2024-08-23] MEDS: NOVOLOG FLEXPEN-LOW RESISTANCE 1 UNITS SC (13:16)
--- NOTE | 2024-08-23 14:14 | CM ---
Addendum entered by Areli Olmedo 08/23/24 15:06:
office manager spoke with Ade at [facility] and they have patient's chair time available tomorrow.
Original Note:
Chart reviewed patient with ESRD on HD, [facility] Sat at [place] [phone], home with family when stable.
[place]
Plan; Home with family when stable.
--- NOTE | 2024-08-23 15:00 | W.DCSUMMARY ---
Discharge Summary
Discharge Data
Date of Admission: 08/19/24
Date of Discharge: 08/23/24
-
Pending Results: No
Hospital Course
59yo M with PMHx of ESRD on HD via L AVF TTS, gout, anemia, HTN came with rectal bleed after colonoscopy, most likely postpolypectomy, that is later resolved after repeated colonoscopy on 08/20/24 with epi injection and hemoclip. Required 6 units
PRBC on this admission, hoowever no over shock, later developed significant LFT elevation, most likely 2/2 severe anemia since no other abdominal symptoms. As per GI - since most likely shocked liver due to hypotension - patient can follow up as
outpatient with LFT in 1 week - GI will provide follow up. Otherwise medically stable for d/c. CM confirmed HD time on Friday at 5:30AM
I have spent at least 58min reviewing chart, test results, communication with consultants and direct patient care
Patient was managed for:
#Acute blood loss anemia 2/2 post-polypectomy bleed during recent colonoscopy
#Acute on chronic anemia
#Chronic mild thrombocytopenia
#ESRD on HD
#Hypocalcemia
#Hyperkalemia
#Transaminitis
#DM type 2 with nephropathy
#Essential HTN
Discharge Plan
-
Patient Disposition: Home (Routine Discharge)
Discharge Diagnosis/Procedures: Hematochezia
Diet: Other diet
Additional Diets: Renal
Activity: As tolerated
Referrals:
Ni Ta MD [Active] - in one to two weeks
Alex Todd MD [Family Provider] - in less than 1 week (CBC and LFT blood test)
Prescriptions:
Continued
allopurinol 100 MG tablet
200 mg PO DAILY
sevelamer carbonate 800 MG tablet
800 mg PO QPM
acetaminophen 325 mg Tablet
325 mg PO DAILYPRN PRN (Reason: mild pain)
calcium carbonate [Tums] 200 mg calcium (500 mg) Tablet,Chewable
400 mg PO DAILYPRN PRN (Reason: indigestion)
nifedipine 60 mg Tablet Extended Release
60 mg PO DAILY
B-complex with vitamin C Tablet
1 tab PO TUTHSA
cinacalcet 30 mg Tablet
30 mg PO DAILY
Discharge Orders:
Discharge Patient (As Directed); Ordered 08/23/24
Ordered By: Natan Nice
Discharge Date and Time
Print Language: PUERT[place] RICAN
[2024-08-23 15:17] VITALS: BP 160/78
--- NOTE | 2024-08-23 15:51 | W.PN.GI.CBS2 ---
Today's Communication / Plan
-
LFTs in 1wk---sent
Ok from [facility] for [facility] d/c
Assessment / Plan
-
59-year-old male with history of end-stage renal disease on HD, diabetes, hypertension admitted with bright red blood per rectum for 2 days. Patient underwent colonoscopy 08/09/2024 with removal of 3 large pedunculated polyps in transverse
colon/sigmoid colon. Patient was doing well until yesterday when he started having bright red blood per rectum.
Impression
-- Delayed post polypectomy bleeding
Colonoscopy repeated 08/20 with hemoclips x4
-- Elevated liver test
Unclear cause. Clinically suspect related to hypoperfusion during LGIB (s/p 6u PRBC on this admission)
CTA and abd US with normal liver contour patent vasculature
Negative hepatitis serologies and KATIANA
-- History of chronic anemia
-- ESRD on HD
Recommendations
- Tolerating LRD
- H/H overall stable with now brown stool
- LFT rise in hepatocellular pattern noted. Thus far all workup for alternative cause negative. Suspect delayed from hemodynamic changes during GIB (6u PRBC during this admission)
Ok from [facility] for [facility] d/c today
I sent LFTs to be checked one week from now he will return to lab Friday. Pt is agreeable
Above d/w hospitalist
Subjective
Subjective
Date of Service: August 23, 2024
Stools are brown. No abd pain, nausea/vomiting. Tolerating diet without issue
Objective
Data Reviewed
Laboratory Data:
Laboratory Results
08/23/24 07:48
08/23/24 07:48
Laboratory Results
PT 14.8 Sec (11.4-14.6) H 08/23/24 07:48
INR 1.13 08/23/24 07:48
APTT 32.2 Sec (23.4-35.0) 08/22/24 09:22
Phosphorus 6.3 mg/dl (2.5-4.5) H 08/20/24 04:31
Magnesium 2.1 mg/dl (1.6-2.3) 08/20/24 04:31
Total Bilirubin 0.6 mg/dl (0.2-1.3) 08/23/24 07:48
AST 270 U/L (17-59) H 08/23/24 07:48
ALT 1428 U/L (0-50) H* 08/23/24 07:48
Alkaline Phosphatase 79 U/L (38-126) 08/23/24 07:48
Vital Signs and I&O:
Vital Signs
Temp Pulse Resp BP Pulse Ox
98.4 F 82 19 160/78 98
08/23/24 15:17 08/23/24 15:17 08/23/24 15:17 08/23/24 15:17 08/23/24 15:17
I&O
08/22/24 08/23/24 08/24/24
06:59 06:59 06:59
Intake Total 720 / 720 240 / 240
Output Total 450 / 450
Balance 270 / 270 240 / 240
Physical Exam
Physical Exam
GEN: No acute distress, conversant, pleasant
HEENT: anicteric, extraocular movements intact, clear oropharynx without exudates
GI: soft, non-distended, not tender to palpation, normal active bowel sounds, no hepatosplenomegaly
EXT: warm, well perfused, no edema bilaterally
NEURO: AAOx3, non-focal
[2024-08-23 16:39] LABS: Haptoglobin 85 mg/dL (30-200)
== END 2024-08-23 17:11 | disposition home or self-care (01) | DRG 919 ==
LOC: 4 WEST ACU 12:53
PROVIDERS: Internal Medicine; Internal Medicine Gastroenterology; Nurse Practitioner Family; Physician Assistant Medical; Radiology Diagnostic Radiology; Specialist; ADMITTING PHYSICIAN Student in an Organized Health Care Education/Training Program; ATTENDING PHYSICIAN Internal Medicine; CONSULT PHYSICIAN Internal Medicine Gastroenterology; CONSULT PHYSICIAN Specialist; EMERGENCY PHYSICIAN Emergency Medicine; FAMILY PHYSICIAN Family Medicine; OTHER PHYSICIAN Internal Medicine Critical Care Medicine
PROC: 30233N1 Transfusion of Nonautologous Red Blood Cells into Peripheral Vein, Percutaneous Approach (ICD-10-PCS; 2024-08-19)
PROC: 0DJD8ZZ Inspection of Lower Intestinal Tract, Via Natural or Artificial Opening Endoscopic (ICD-10-PCS; 2024-08-20)
PROC: B4141ZZ Fluoroscopy of Superior Mesenteric Artery using Low Osmolar Contrast (ICD-10-PCS; 2024-08-20)
PROC: 5A1D70Z Performance of Urinary Filtration, Intermittent, Less than 6 Hours Per Day (ICD-10-PCS; 2024-08-21)
DX: K91.840 Postprocedural hemorrhage of a digestive system organ or structure following a digestive system procedure (principal); K72.00 Acute and subacute hepatic failure without coma; N18.6 End stage renal disease; D62 Acute posthemorrhagic anemia; I12.0 Hypertensive chronic kidney disease with stage 5 chronic kidney disease or end stage renal disease; K92.1 Melena; N25.81 Secondary hyperparathyroidism of renal origin; Y83.8 Other surgical procedures as the cause of abnormal reaction of the patient, or of later complication, without mention of misadventure at the time of the procedure; D69.6 Thrombocytopenia, unspecified; Z99.2 Dependence on renal dialysis; E83.51 Hypocalcemia; E87.5 Hyperkalemia; E11.22 Type 2 diabetes mellitus with diabetic chronic kidney disease; M10.9 Gout, unspecified; E78.5 Hyperlipidemia, unspecified; K57.30 Diverticulosis of large intestine without perforation or abscess without bleeding; K64.8 Other hemorrhoids; R42 Dizziness and giddiness; E83.39 Other disorders of phosphorus metabolism; D63.1 Anemia in chronic kidney disease; R11.0 Nausea; H50.40 Unspecified heterotropia; K31.7 Polyp of stomach and duodenum; Z79.899 Other long term (current) drug therapy
CPT/HCPCS: 36245; 36430; 71045; 74018; 74174; 75726; 76700; 76937; 80053; 82248; 82550; 82607; 82728; 82746; 82962; 83010; 83540; 83550; 83615; 83735; 84100; 85014; 85018; 85025; 85027; 85045; 85384; 85610; 85730; 86308; 86705; 86706; 86709; 86803; 86850; 86880; 86900; 86901; 86920; 87070; 87340; 93005; 99285; C1769; G0257; P9016; P9047; Q5106; Q9967

== ENCOUNTER → 2024-08-31 13:26 | Outpatient (REF) | payer MEDICAID, SELFPAY ==
[2024-08-31 14:14] LABS: % Basophils 0.2 % (0-2); % Eosinophils 1.2 % (0-6); % Immature Granulocytes 0.2 % (0-0.5); % Lymphocytes 23.2 % (20.5-51.1); % Monocytes 12.6 % (1.7-9.3); % Neutrophils 62.6 % (42.2-75.2); Absolute Eosinophils 0.1 10^3/uL (0-0.7); Absolute Lymphocytes 1.2 10^3/uL (1.2-3.4); Absolute Monocytes 0.6 10^3/uL (0.1-0.6); Absolute Neutrophils 3.1 10^3/uL (1.4-6.5); Hematocrit 23.2 % (39.0-52.0); Hemoglobin 7.4 g/dL (13.0-18.0); Mean Corp Hgb Conc. 31.9 g/dL (33.0-37.0); Mean Corpuscular Hgb 31.9 pg (27.0-31.0); Mean Platelet Volume 11.4 fL (7.4-10.4); Nucleated Red Blood Cells % 0 % (-); Platelet Count 129 10^3/uL (130-400); Red Blood Cell Count 2.32 10^6/uL (4.70-6.10)
[2024-08-31 14:48] LABS: ALT (SGPT) 94 U/L (0-50); AST (SGOT) 21 U/L (17-59); Albumin 3.6 g/dl (3.5-5.0); Alkaline Phosphatase 84 U/L (38-126); Blood Urea Nitrogen 32 mg/dl (9-20); Calcium 8.2 mg/dl (8.4-10.2); Carbon Dioxide 39 mmol/L (22-30); Chloride 92 mmol/L (98-107); Glucose 140 mg/dl (70-99); Potassium 4.1 mmol/L (3.5-5.1); Sodium 142 mmol/L (135-145); eGFR 11.04
== END ==
LOC: RAD 13:26
PROVIDERS: ATTENDING PHYSICIAN Family Medicine
DX: N18.6 End stage renal disease (principal); R60.0 Localized edema; D62 Acute posthemorrhagic anemia; R74.8 Abnormal levels of other serum enzymes
CPT/HCPCS: 36415; 80053; 85025; 93971

== ENCOUNTER → 2024-09-02 09:32 | Outpatient (REF) | payer MEDICAID, SELFPAY ==
[2024-09-02 11:20] LABS: Hemoglobin 7.2 g/dL (13.0-18.0)
== END ==
LOC: OLAB 09:32
PROVIDERS: ATTENDING PHYSICIAN Specialist
DX: R19.5 Other fecal abnormalities (principal); N18.6 End stage renal disease; R79.9 Abnormal finding of blood chemistry, unspecified; Z79.899 Other long term (current) drug therapy
CPT/HCPCS: 36415; 85018

== ENCOUNTER 2024-09-03 08:04 | Emergency (ER) | payer MEDICAID, SELFPAY ==
[2024-09-03 08:08] VITALS: BP 166/83
--- NOTE | 2024-09-03 09:02 | ED.GENMED ---
History of Present Illness
<Barbara Gastelum MD, Resident - Last Filed: 09/03/24 09:29>
General
Chief Complaint: Abnormal Lab Value
Time Seen by Provider: 09/03/24 08:21
History of Present Illness
History of Present Illness:
59 y/o male with pmhx of HTN, CKD on HD, DM, chronic anemia on SHRAVAN presenting to the ED with low hgb value (7.2 ) on outside lab work dated 09/02/2024. Patient had a colonoscopy done on 08/09 secondary to a positive cologuard and had lower GI
bleeding post-procedure. Was admitted here last month and had blood transfusions. Per records, patient's hgb before GIB was ~9, but was 7.1 on day of discharge (08/22). Pt denies any symptoms other than fatigue. Denies abdominal pain, chest pain,
melena, hematochezia, blood in urine, fever, LOC. Patient gets dialysis on Tuesdays, , and Saturdays. Notes had swelling and abdominal distention last week after discharge which has significantly improved.
Past History
<Barbara Gastelum MD, Resident - Last Filed: 09/03/24 09:29>
Past History
ED Past Medical History: HTN, NIDDM, Renal failure (hemo dialysis) and Other (Chronic anemia, Secondary hyperparathyroidism)
ED Past Surgical History: Appendectomy and Other (LUE AV fistula)
Social History
Personal:
Review of Systems
<Barbara Gastelum MD, Resident - Last Filed: 09/03/24 09:29>
Review of Systems
Constitutional: Reports fatigue
EENT: Reports no symptoms
Respiratory: Reports no symptoms
Cardiac: Reports no symptoms
ABD/GI: Reports no symptoms
: Reports no symptoms
Musculoskeletal: Reports no symptoms
Skin: Reports no symptoms
Neurological: Reports no symptoms
Endocrine: Reports no symptoms
Hematologic/Lymphatic: Reports no symptoms
Psychiatric: Reports no symptoms
Phy Exam
<Barbara Gastelum MD, Resident - Last Filed: 09/03/24 09:29>
Physical Exam
Physical Exam:
GENERAL: Alert, in no apparent distress.
EYE: pupils equal and reactive
NECK: Supple, no significant adenopathy.
ENT: o/p clr, mmm.
CARDIAC: Regular rate and rhythm. Holosystolic swooshing murmur.
LUNGS: Clear breath sounds bilaterally, no acute respiratory distress, no wheezes/rales/rhonchi.
ABDOMEN: Soft, mild distention without focal tenderness, no r/g, no cvat
NEUROLOGICAL: Alert and oriented, no focal neuro deficits.
SKIN: Warm and dry, skin intact.
MUSCULOSKELETAL: Bilateral mild pitting edema on LE, well perfused.
PSYCH: Normal and appropriate interaction.
AV fistula on left upper arm, normal bruit and thrill.
Course
<Barbara Gastelum MD, Resident - Last Filed: 09/03/24 09:29>
Orders/Labs/Results
Orders:
Orders
09/03/24 09:48
Type And Crossmatch [Type+Screen] Urgent
Complete Blood Count/With Diff Urgent
Comprehensive Metabolic Panel Urgent
PTT Urgent
Abnormal Lab Results
09/03/24
09:48
WBC 4.2 L 10^3/uL
(4.8-10.8)
RBC 2.36 L 10^6/uL
(4.70-6.10)
Hgb 7.5 L g/dL
(13.0-18.0)
Hct 24.3 L %
(39.0-52.0)
MCV 103.0 H fL
(80.0-94.0)
MCH 31.8 H pg
(27.0-31.0)
MCHC 30.9 L g/dL
(33.0-37.0)
RDW 16.0 H %
(11.5-14.5)
Plt Count 129 L 10^3/uL
(130-400)
MPV 11.6 H fL
(7.4-10.4)
Absolute Lymphs (auto) 1.1 L 10^3/uL
(1.2-3.4)
APTT 40.6 H Sec
(23.4-35.0)
Chloride 95 L mmol/L
(98-107)
Carbon Dioxide 36 H mmol/L
(22-30)
BUN 47 H mg/dl
(9-20)
Creatinine 6.9 H* mg/dL
(0.7-1.3)
Glucose 106 H mg/dl
(70-99)
ALT 59 H U/L
(0-50)
Total Protein 5.7 L g/dl
(6.3-8.2)
Albumin 3.3 L g/dl
(3.5-5.0)
09/03/24 09:48
09/03/24 09:48
Vital Signs
Initial and Last Documented VS:
Initial Vital Signs
Temp Pulse Resp BP Pulse Ox
98.1 F 80 18 166/83 100
09/03/24 08:08 09/03/24 08:08 09/03/24 08:08 09/03/24 08:08 09/03/24 08:08
Last Documented Vital Signs
Temp Pulse Resp BP Pulse Ox
98.1 F 80 18 166/83 100
09/03/24 08:08 09/03/24 08:08 09/03/24 08:08 09/03/24 08:08 12/06/24 08:08
<Maurilio rPatt MD - Last Filed: 09/03/24 10:29>
Orders/Labs/Results
Orders:
Orders
09/03/24 09:48
Type And Crossmatch [Type+Screen] Urgent
Complete Blood Count/With Diff Urgent
Comprehensive Metabolic Panel Urgent
PTT Urgent
Abnormal Lab Results
09/03/24
09:48
WBC 4.2 L 10^3/uL
(4.8-10.8)
RBC 2.36 L 10^6/uL
(4.70-6.10)
Hgb 7.5 L g/dL
(13.0-18.0)
Hct 24.3 L %
(39.0-52.0)
MCV 103.0 H fL
(80.0-94.0)
MCH 31.8 H pg
(27.0-31.0)
MCHC 30.9 L g/dL
(33.0-37.0)
RDW 16.0 H %
(11.5-14.5)
Plt Count 129 L 10^3/uL
(130-400)
MPV 11.6 H fL
(7.4-10.4)
Absolute Lymphs (auto) 1.1 L 10^3/uL
(1.2-3.4)
APTT 40.6 H Sec
(23.4-35.0)
Chloride 95 L mmol/L
(98-107)
Carbon Dioxide 36 H mmol/L
(22-30)
BUN 47 H mg/dl
(9-20)
Creatinine 6.9 H* mg/dL
(0.7-1.3)
Glucose 106 H mg/dl
(70-99)
ALT 59 H U/L
(0-50)
Total Protein 5.7 L g/dl
(6.3-8.2)
Albumin 3.3 L g/dl
(3.5-5.0)
09/03/24 09:48
09/03/24 09:48
Vital Signs
Initial and Last Documented VS:
Initial Vital Signs
Temp Pulse Resp BP Pulse Ox
98.1 F 80 18 166/83 100
09/03/24 08:08 09/03/24 08:08 09/03/24 08:08 09/03/24 08:08 09/03/24 08:08
Last Documented Vital Signs
Temp Pulse Resp BP Pulse Ox
98.1 F 80 18 166/83 100
09/03/24 08:08 09/03/24 08:08 09/03/24 08:08 09/03/24 08:08 09/03/24 08:08
<Barbara Gastelum MD, Resident - Last Filed: 09/03/24 09:29>
MDM/Problems Addressed
Differential Diagnosis Includes:
Acute on chronic anemia
MDM/Problems Addressed:
- Blood transfusion could be considered since patient is symptomatic
- Repeat hgb after one week
- Outpatient cardiology follow-up for new murmur
Chronic conditions affecting care:
CKD on HD, chronic anemia
<Barbara Gastelum MD, Resident - Last Filed: 09/03/24 09:29>
*Critical Care Note
Total Time (30-74mins, 75-104mins- exclusive of procedures): Not Applicable
ED Attending Note
<Barbara Gastelum MD, Resident - Last Filed: 09/03/24 09:29>
-
Portions of this chart may have been created with voice recognition software.� Occasional wrong word or��sound alike� substitutions may have occurred due to the inherent limitations of voice recognition software.
<Maurilio Pratt MD - Last Filed: 09/03/24 10:29>
ED Attending Note
Patient seen and examined by attending physician: Yes
ED Attending Note:
Patient with history of end-stage renal disease on hemodialysis (Friday, , Friday), and recent admission requiring blood transfusion secondary to post colonoscopy bleed from polypectomy site, presents to ED after routine blood work
ordered during dialysis revealed anemia. Patient states that since he was discharged home, he has been continuingly weak, but has not worsened. Denies dizziness. Denies shortness of breath. Denies near syncope. Denies nausea or vomiting.
Denies loss of appetite. Denies seeing blood with urination or with bowel movements. Patient does not take any blood thinning medications.
Physical Exam
General: no apparent distress, not acutely ill. afebrile
Head: nc/at. eomi
Neck: supple. no meningeal signs.
Heart: s1/s2 regular rate and rhythm, no murmur. equal radial pulses.
Lungs: no acute respiratory distress. clear bilaterally
Abdomen: normal bowel sounds. not tender.
Neuro: alert and oriented. no focal neurological deficits
Skin: no rash
Psychiatric: well kept. interactive and cooperative
Extremities: no edema. no calf tenderness.
H&H noted, improved from yesterday blood work. In addition, patient remains afebrile, helically stable, and nontoxic-appearing. Patient without any symptoms concerning for an acute symptomatic anemia. Discussed with on-call GI physician,
Sacha, who also does not feel that patient is in need of acute blood transfusion. Recommends patient take outpatient iron pills and vitamin C tablets, along with repeat blood work within 1 to 2 weeks. If anemia continues, recommends following
up with hematology for an outpatient iron infusion.
Discharge Plan
Departure
Prescriptions:
No Action
allopurinol 100 MG tablet
200 mg PO DAILY
sevelamer carbonate 800 MG tablet
800 mg PO QPM
acetaminophen 325 mg Tablet
325 mg PO DAILYPRN PRN (Reason: mild pain)
calcium carbonate [Tums] 200 mg calcium (500 mg) Tablet,Chewable
400 mg PO DAILYPRN PRN (Reason: indigestion)
nifedipine 60 mg Tablet Extended Release
60 mg PO DAILY
B-complex with vitamin C Tablet
1 tab PO TUTHSA
cinacalcet 30 mg Tablet
30 mg PO DAILY
Referrals:
Adelaida Holder MD [Family Provider] -
Interventions
Interventions:
*Risk Screen - Suicide Last Done: 09/03/24 08:08
*General Assessment Last Done: 09/03/24 08:08
*Neglect/Abuse Screening Last Done: 09/03/24 08:08
Discharge Date and Time
Print Language: ESTONIAN
[2024-09-03 09:22] VITALS: BMI 29.7
[2024-09-03 09:35] VITALS: BP 167/87
[2024-09-03 10:00] VITALS: BP 163/84
[2024-09-03 10:06] LABS: % Basophils 0.2 % (0-2); % Eosinophils 2.9 % (0-6); % Immature Granulocytes 0.2 % (0-0.5); % Lymphocytes 26.6 % (20.5-51.1); % Monocytes 9.3 % (1.7-9.3); % Neutrophils 60.8 % (42.2-75.2); APTT 40.6 Sec (23.4-35.0); Absolute Eosinophils 0.1 10^3/uL (0-0.7); Absolute Lymphocytes 1.1 10^3/uL (1.2-3.4); Absolute Monocytes 0.4 10^3/uL (0.1-0.6); Absolute Neutrophils 2.6 10^3/uL (1.4-6.5); Hematocrit 24.3 % (39.0-52.0); Hemoglobin 7.5 g/dL (13.0-18.0); Mean Corp Hgb Conc. 30.9 g/dL (33.0-37.0); Mean Corpuscular Hgb 31.8 pg (27.0-31.0); Mean Platelet Volume 11.6 fL (7.4-10.4); Nucleated Red Blood Cells % 0 % (-); Platelet Count 129 10^3/uL (130-400); Red Blood Cell Count 2.36 10^6/uL (4.70-6.10); White Blood Cell Count 4.2 10^3/uL (4.8-10.8)
[2024-09-03 10:13] LABS: ALT (SGPT) 59 U/L (0-50); AST (SGOT) 20 U/L (17-59); Albumin 3.3 g/dl (3.5-5.0); Alkaline Phosphatase 91 U/L (38-126); Blood Urea Nitrogen 47 mg/dl (9-20); Calcium 8.4 mg/dl (8.4-10.2); Carbon Dioxide 36 mmol/L (22-30); Chloride 95 mmol/L (98-107); Estimated Creatinine Clearance 11 ml/min; Glucose 106 mg/dl (70-99); Potassium 4.4 mmol/L (3.5-5.1); Sodium 140 mmol/L (135-145); Total Bilirubin 0.6 mg/dl (0.2-1.3); Total Protein 5.7 g/dl (6.3-8.2); eGFR 8.59
[2024-09-03 11:00] VITALS: BP 159/86
[2024-09-03 11:18] VITALS: BP 156/96
== END 2024-09-03 11:20 | disposition home or self-care (01) ==
LOC: EMR 08:04
PROVIDERS: EMERGENCY PHYSICIAN Emergency Medicine; FAMILY PHYSICIAN Family Medicine
DX: D64.9 Anemia, unspecified (principal); I12.0 Hypertensive chronic kidney disease with stage 5 chronic kidney disease or end stage renal disease; N18.6 End stage renal disease; Z99.2 Dependence on renal dialysis; E11.22 Type 2 diabetes mellitus with diabetic chronic kidney disease
CPT/HCPCS: 99283; 80053; 85025; 85730; 86850; 86900; 86901

== ENCOUNTER 2024-09-12 13:32 | Inpatient (IN) | payer MEDICAID, SELFPAY ==
[2024-09-12] VITALS (21 sets, daily range): BP systolic 141–195; BP diastolic 73–105; BMI 28.6; BMI 28.8
--- NOTE | 2024-09-12 08:09 | ED.GENMED ---
History of Present Illness
General
Chief Complaint: Cold/Flu/URI Symptoms
Source: patient
Time Seen by Provider: 09/12/24 07:59
History of Present Illness
History of Present Illness:
59yoM with a history of ESRD on hemodialysis T//S, type 2 diabetes, and hypertension presenting for evaluation of a cough. Symptoms have been ongoing for about a week. Cough is mainly dry. He also feels like he has a lot of mucous in the back
of his throat. The cough is making it difficult for him to sleep at night. He reports a subjective fever 2 days ago but did not check his temperature. He is having intermittent shortness of breath. He also reports bilateral leg swelling has been
present for the past 2 weeks. He has been using OTC cough medications without relief. He was last dialyzed yesterday.
Past History
Past History
ED Past Medical History: HTN, NIDDM, Renal failure (hemo dialysis) and Other (Chronic anemia, Secondary hyperparathyroidism)
ED Past Surgical History: Appendectomy and Other (LUE AV fistula)
Social History
Personal:
Phy Exam
General Physical Exam
General Presentation: no apparent distress
General age: appears stated age
General Skin: warm and dry
General Habitus: normal
General Mental: alert
ENT Exam
ENT Exam: normocephalic
Cardiovascular Exam
Cardiovascular Exam: regular rate/rhythm, no edema (2+ pitting edema in bilateral lower extremities) and systolic murmur
Pulmonary Exam
Pulmonary Exam: lungs clear, no respiratory distress, no rales, no crackles, no rhonchi and other (Frequent dry cough)
Neurological Exam
Neurological Exam: alert
[place] Coma Scale
Eye Opening: Spontaneous
Verbal Response: Oriented
Motor Response: Obeys Commands
GCS Total Score: 15
Skin Exam
Skin Exam: normal color and warm/dry
Psychiatric Exam
Psychiatric Exam: normal mood/affect
Course
Orders/Labs/Results
Orders:
Orders
09/12/24 08:07
Electrocardiogram (*1) Urgent
Reason for Study: Shortness of Breath
EKG- Treatment ONCE
09/12/24 08:08
CR Chest - 2 Views Urgent
Comment:
Reason For Exam: Cough
09/12/24 08:35
COVID-19 Antigen Urgent
Source: Nasal Swab
Complete Blood Count/With Diff Urgent
Comprehensive Metabolic Panel Urgent
Influenza A+B Rapid Molecular Urgent
TED Source: Nasal Swab
Specimen Description:
09/12/24 09:40
CT Chest W/o Iv Contrast Urgent
Comment:
Reason For Exam: Cough, SOB
09/12/24 10:36
Cefepime HCl [Maxipime] 2,000 mg IV NOW STA
09/12/24 13:00
Admit/Transfer Patient As Directed
Co-Sign Provider:
Level of Care: Inpatient admission
Assign to:: Telemetry
Physician / Group: Kristi aNva
Diagnosis: Multifocal Pneumonia
Reason for Telemetry: Arrhythmia
Date to Stop Telemetry: 09/15/24
Time to Stop Telemetry: 11:00
Reason for Hospitalization: Multifocal Pneumonia
Expected length of stay greater than two midnights?: Yes
ELOS- Estimated Length of Stay in days: 2
I certify the patient meets the requirements for IP care: Yes
PRN Pain Medication Management As Directed
May give lesser potent ordered pain med per pt: Yes
preference::
Protocol:: Medication orders for pain may be administered in a
manner that supports deferring to patient preference
when the pt is:
- Requesting an ordered lesser potent pain medication.
Least to most potent pain medications are defined
as: acetaminophen < NSAID < tramadol < opioids
(morphine, oxycodone, hydromorphone).
- Requesting a lesser dose of the same medication IF
ORDERED.
- Requesting a less intrusive route of administration
if both routes are prescribed by the provider (PO <
IV).
09/12/24 13:03
Code Status As Directed
Resuscitation Status: Full Code
09/12/24 13:15
HydrALAZINE [Apresoline] 5 mg IV Q4HPRN PRN
09/15/24 11:00
DC Protocol for Telemetry ONCE
Abnormal Lab Results
09/12/24
08:35
RBC 2.57 L 10^6/uL
(4.70-6.10)
Hgb 8.3 L g/dL
(13.0-18.0)
Hct 26.7 L %
(39.0-52.0)
MCV 103.9 H fL
(80.0-94.0)
MCH 32.3 H pg
(27.0-31.0)
MCHC 31.1 L g/dL
(33.0-37.0)
RDW 18.1 H %
(11.5-14.5)
Plt Count 110 L 10^3/uL
(130-400)
MPV 11.1 H fL
(7.4-10.4)
Absolute Monos (auto) 0.7 H 10^3/uL
(0.1-0.6)
Lymphocytes % 18.2 L %
(20.5-51.1)
Monocytes % 9.8 H %
(1.7-9.3)
Chloride 94 L mmol/L
(98-107)
Carbon Dioxide 35 H mmol/L
(22-30)
BUN 29 H mg/dl
(9-20)
Creatinine 6.3 H* mg/dL
(0.7-1.3)
Glucose 119 H mg/dl
(70-99)
09/12/24 08:35
09/12/24 08:35
Vital Signs
Initial and Last Documented VS:
Initial Vital Signs
Temp Pulse Resp BP Pulse Ox
99.2 F 96 16 183/98 96
09/12/24 07:50 09/12/24 07:50 09/12/24 07:50 09/12/24 07:50 09/12/24 07:50
Last Documented Vital Signs
Temp Pulse Resp BP Pulse Ox
97.6 F 102 16 186/95 94
09/12/24 08:42 09/12/24 13:49 09/12/24 13:12 09/12/24 13:49 09/12/24 13:49
MDM/Problems Addressed
Differential Diagnosis Includes:
59yoM here with cough x 1 week and difficulty sleeping. Also having intermittent SOB. He is hypertensive with otherwise normal vitals. He has a frequent cough during exam. Systolic murmur noted with 2+ lower extremity edema. Differential diagnosis
includes but is not limited to: Pneumonia, viral illness, postnasal drip, volume overload
Initial ED plan: Check CBC, CMP, EKG, COVID/flu swab, and CXR.
*EKG
Interpreted by ED Provider?: Yes
EKG Intrepretation Date: 09/12/24
Heart Rate: 91
Rate: normal
Rhythm: sinus
[place]: normal axis
Interval: normal interval
QRS Pattern: normal QRS
Ischemia: no ischemia
*Critical Care Note
Total Time (30-74mins, 75-104mins- exclusive of procedures): Not Applicable
Update Note
Update Note:
Chest x-ray shows evidence of mild interstitial edema. White count normal and COVID/flu swab negative. Case discussed with nephrology who does not feel emergent dialysis is necessary. CT chest obtained which is more consistent with multifocal
pneumonia. IV cefepime ordered and patient admitted for further management.
ED Attending Note
-
Portions of this chart may have been created with voice recognition software.� Occasional wrong word or��sound alike� substitutions may have occurred due to the inherent limitations of voice recognition software.
Discharge Plan
Departure
Patient Disposition: Admit
Date of Disposition: 09/12/24
Time of Disposition: 10:45
Presentation/result/management discussed w/ accepting MD/DO: Hospitalist
Discharge Problem:
Multifocal pneumonia
Interventions
Interventions:
*Risk Screen - Suicide Last Done: 09/12/24 07:53
*General Assessment Last Done: 09/12/24 08:42
*Neglect/Abuse Screening Last Done: 09/12/24 07:53
ED- Fall Risk Assessment Last Done: 09/12/24 08:42
*ED COVID-19 Vaccine History Last Done: 09/12/24 08:42
*Nursing Disposition Last Done: 09/12/24 14:00
ED- Pulmonary Assessment Last Done: 09/12/24 08:42
[2024-09-12 08:47] LABS: % Basophils 0.3 % (0-2); % Eosinophils 2.3 % (0-6); % Immature Granulocytes 0.3 % (0-0.5); % Lymphocytes 18.2 % (20.5-51.1); % Monocytes 9.8 % (1.7-9.3); % Neutrophils 69.1 % (42.2-75.2); Absolute Eosinophils 0.2 10^3/uL (0-0.7); Absolute Lymphocytes 1.2 10^3/uL (1.2-3.4); Absolute Monocytes 0.7 10^3/uL (0.1-0.6); Absolute Neutrophils 4.6 10^3/uL (1.4-6.5); Hematocrit 26.7 % (39.0-52.0); Hemoglobin 8.3 g/dL (13.0-18.0); Mean Corp Hgb Conc. 31.1 g/dL (33.0-37.0); Mean Corpuscular Hgb 32.3 pg (27.0-31.0); Mean Corpuscular Volume 103.9 fL (80.0-94.0); Mean Platelet Volume 11.1 fL (7.4-10.4); Nucleated Red Blood Cells % 0 % (-); Platelet Count 110 10^3/uL (130-400); Red Blood Cell Count 2.57 10^6/uL (4.70-6.10); Red Cell Dist. Width 18.1 % (11.5-14.5); White Blood Cell Count 6.6 10^3/uL (4.8-10.8)
[2024-09-12 08:59] LABS: COVID-19 Antigen Negative (Negative)
[2024-09-12 09:13] LABS: ALT (SGPT) 25 U/L (0-50); AST (SGOT) 20 U/L (17-59); Albumin 3.8 g/dl (3.5-5.0); Alkaline Phosphatase 113 U/L (38-126); Blood Urea Nitrogen 29 mg/dl (9-20); Calcium 8.8 mg/dl (8.4-10.2); Carbon Dioxide 35 mmol/L (22-30); Chloride 94 mmol/L (98-107); Estimated Creatinine Clearance 11 ml/min; Glucose 119 mg/dl (70-99); Potassium 4.4 mmol/L (3.5-5.1); Sodium 140 mmol/L (135-145); Total Bilirubin 0.9 mg/dl (0.2-1.3); Total Protein 6.4 g/dl (6.3-8.2); eGFR 9.58
--- NOTE | 2024-09-12 09:46 | W.CON.NEPH ---
Consultation
-
Date/Time Consultation Requested: 09/12/2024 9:30 AM
Date/Time Consultation Performed: 09/12/2024 9:30 AM
Requesting Provider: Dr. garrett
Performing Provider: Dr. Kaur
Reason for Consultation: End-stage renal disease
Medical History
-
Chief Complaint: End-stage renal disease
History of Present Illness:
The patient is a 59-year-old male with a past medical history of end-stage renal disease who dialyzes Friday and Saturdays. He dialyzes at our [facility] dialysis unit and underwent dialysis yesterday which is his regularly scheduled time.
He presented to the hospital today after saying that his cough has exacerbated over the past 5 days. He denies any associated shortness of breath or fevers. Initial chest x-ray showed findings possibly consistent with interstitial edema and
nephrology was asked to see the patient. He had been recently admitted earlier this month with GI bleeding.
Past Medical History
Diabetes Mellitus, Type II
IgA Nephropathy
ESRD on HD
Secondary Hyperparathyroidism
Hyperphosphatemia
Essential Hypertension
Gout
Left Upper Extremity AV Fistula
Appendectomy
Social History
Tobacco: Non-Smoker
Alcohol: None
Family History
Family History: Not Pertinent
Allergies / Home Medications
Allergy/AdvReac Type Severity Reaction Status Date / Time
No Known Allergies Allergy Verified 09/03/24 08:08
�Medication �Instructions �Recorded �Confirmed �Type
allopurinol 100 mg tablet 200 mg PO DAILY Gout 10/08/16 09/12/24 History
sevelamer carbonate 800 mg tablet 800 mg PO QPM Kidney Disease 12/16/18 09/12/24 History
B-complex with vitamin C 1 tab PO TUTHSA Supplement 08/19/24 09/12/24 History
acetaminophen 325 mg tablet 325 mg PO DAILYPRN PRN mild pain 08/19/24 09/12/24 History
calcium carbonate (Tums) 400 mg PO DAILYPRN PRN indigestion 08/19/24 09/12/24 History
cinacalcet 30 mg tablet 30 mg PO DAILY Kidney Disease 08/19/24 09/12/24 History
nifedipine 60 mg tablet,extended 60 mg PO DAILY Blood Pressure 08/19/24 09/12/24 History
release
ferrous sulfate 325 mg (65 mg 325 mg PO DAILY #20 tabs 09/03/24 09/12/24 Rx
iron) tablet (Iron (ferrous
sulfate))
Review of Systems
-
History Source: Patient
All other systems: Negative unless noted
Respiratory: Cough and Other (No shortness of)
Physical Exam
Vital Signs
Vital Signs
Temp Pulse Resp BP Pulse Ox
97.6 F 86 20 163/87 94
09/12/24 08:42 09/12/24 08:42 09/12/24 08:42 09/12/24 08:42 09/12/24 08:42
Lab Results
09/12/24 08:35
09/12/24 08:35
WBC 6.6 10^3/uL (4.8-10.8) 09/12/24 08:35
RBC 2.57 10^6/uL (4.70-6.10) L 09/12/24 08:35
Hgb 8.3 g/dL (13.0-18.0) L 09/12/24 08:35
Hct 26.7 % (39.0-52.0) L 09/12/24 08:35
Plt Count 110 10^3/uL (130-400) L 09/12/24 08:35
Sodium 140 mmol/L (135-145) 09/12/24 08:35
Potassium 4.4 mmol/L (3.5-5.1) 09/12/24 08:35
Chloride 94 mmol/L (98-107) L 09/12/24 08:35
Carbon Dioxide 35 mmol/L (22-30) H 09/12/24 08:35
BUN 29 mg/dl (9-20) H 09/12/24 08:35
Creatinine 6.3 mg/dL (0.7-1.3) H* 09/12/24 08:35
eGFR 9.58 09/12/24 08:35
Glucose 119 mg/dl (70-99) H 09/12/24 08:35
Calcium 8.8 mg/dl (8.4-10.2) 09/12/24 08:35
Albumin 3.8 g/dl (3.5-5.0) 09/12/24 08:35
Physical Exam
General: AOx3 and Nontoxic
HEENT: PERRL, EOMI, Anicteric, Conjunctivae Clear, Ear/Nose Intact, Hearing Normal, Oropharynx Clear/Moist, Trachea Midline, No JVD and No Thyromegaly
Respiratory: Wheezes, Rhonchi and Normal Excursion
Cardiac: Regular Rate/Rhythm (5 out of 6 left sternal border blowing systolic ejection murmur)
Abdomen: Soft, Nontender, Nondistended and Normal Bowel Sounds
Musculoskeletal: No Clubbing, No Cyanosis and Edema (+1 pedal)
Skin: No Rash
Neuro: Nonfocal/Grossly Intact
Hematologic/Lymphatic: No Cervical Lymphadenopathy
Psych: Mood/afflect pleasant
Vascular Access: AVF (Left upper extremity)
Data Reviewed
-
Radiology: Image Personally Visualized and interpreted
Labs: Labs Reviewed by me
Assessment/Plan
-
Impression:
ESRD TTS
Anemia.
Hx of GI bleed
diabetes mellitus type 2
Hyperphosphatemia
Secondary hyperparathyroidism
Plan:
Cough:
The patient denies shortness of breath and his weight is actually at his dry weight
He did receive dialysis yesterday for about 2-1/2 kg
I do not believe he is actually volume overloaded and he denies shortness of breath
I am not convinced the UF treatment is warranted unless his CT scan notes actual pulmonary alveolar edema
I favor an underlying pulmonary process as the source of his cough despite his chest x-ray findings of possible interstitial edema
Of note there is no fever or leukocytosis
A CT scan of the chest will be obtained by the ER staff to help discriminate his underlying chest x-ray finding
He likely would respond to steroid therapy if an underlying pulmonary process is identified
If he is admitted he should be placed on a 50 ounce fluid restriction and low-sodium diet
Continue phosphate binder and Cinacalcet for bone mineral metabolism disorder
--- NOTE | 2024-09-12 10:38 | EDRN ---
the pt is hypertensive, this RN notified the provider Johanne TOMPKINS
--- NOTE | 2024-09-12 10:39 | EDRN ---
no new orders received for the pts hypertension per the provider, Johanne TOMPKINS currently at the pts bedside
--- NOTE | 2024-09-12 10:53 | HPS.HSE ---
Family Physician
-
Family Physician: Adonis Sharma
Chief Complaint
-
Shortness of breath
History of Present Illness
59M ESRD TTS LUE AV fistula DM HTN p/w progressive sob nonproductive cough w/ associate lower ext swelling for the past week, prompted to visit ED with coughing interfering with sleep. ED eval notable for acute hypoxia on room air 89% requiring 2L
to maintain saturation 90s. Chest X-ray suggesting mild interstitial edema, CT however favors multifocal pneumonia, small bilateral pleural effusions also noted. Hypertensive, sinus tachy, but otherwise in no acute distress, afebrile. No
significant leukocytosis noted. Compliant with scheduled dialysis sessions. Denies Fever Chills Nausea vomiting diarrhea constipation.
Medical History
Past Medical History
Past Medical History: Reports Other (as above)
Past Surgical History: Reports Other (as above)
Social History
Tobacco: Non-smoker
Alcohol: None
Drug: None
Living: Alone
Family History
Family History: Not pertinent (reviewed)
Allergies / Home Medications
Allergies reflects when Allergies were last updated in [employer].
Home Medications with original date entered in [employer]
Allergy/Medication List:
Allergies
Allergy/AdvReac Type Severity Reaction Status Date / Time
No Known Allergies Allergy Verified 09/03/24 08:08
Home Medications
allopurinol 100 mg tablet 200 mg PO DAILY Gout 10/08/16
sevelamer carbonate 800 mg tablet 800 mg PO QPM Kidney Disease 12/16/18
B-complex with vitamin C 1 tab PO TUTHSA Supplement 08/19/24
calcium carbonate (Tums) 400 mg PO QPM 08/19/24
cinacalcet 30 mg tablet 30 mg PO QPM Kidney Disease 08/19/24
nifedipine 60 mg tablet,extended release 60 mg PO DAILY Blood Pressure 08/19/24
ferrous sulfate 325 mg (65 mg iron) tablet (Iron (ferrous sulfate)) 325 mg PO DAILY #20 tabs 09/03/24
Review of Systems
-
A 12 point ROS was completed and negative except as noted: Yes
Constitutional: Reports Other (as below)
Physical Exam
Vital Signs
Vital Signs
Temp Pulse Resp BP Pulse Ox
97.6 F 81 16 179/100 93
09/12/24 08:42 09/12/24 09:30 09/12/24 09:30 09/12/24 09:00 09/12/24 09:30
Physical Exam
General: Other (as below)
Laboratory Results
-
09/12/24 08:35
09/12/24 08:35
Laboratory Results
Total Bilirubin 0.9 mg/dl (0.2-1.3) 09/12/24 08:35
AST 20 U/L (17-59) 09/12/24 08:35
ALT 25 U/L (0-50) 09/12/24 08:35
Alkaline Phosphatase 113 U/L (38-126) 09/12/24 08:35
Impression/Plan
-
ROS
General: Denies fever chills night sweats unexpected weight loss
Neuro: Denies seizure shaking loss of consciousness dizziness vertigo
Psych: denies depression hallucinations confusion manic episodes
Endocrine: Denies polyuria polydipsia polyphagia heat/cold intolerance
HEENT: Denies blindness visual disturbances epistaxis
Pulmonary: reports dyspnea on exertion coughing nonproductive
Cardiovascular: denies chest pain palpitations reports leg swelling
Hematology: denies signs symptoms of anemia easy bruising/bleeding
Gastrointestinal: denies nausea vomiting diarrhea constipation hematemesis hematochezia melena
Genito-Urinary: denies retention incontinence dysuria
Musculoskeletal: denies joint pain weakness
Dermatology: denies rash laceration bruising
Physical Exam
General: No pallor, cyanosis, or jaundice.
HEENT: Throat clear. PERRLA Normocephalic atraumatic
NECK: Supple. No JVD Carotid Bruits
RESPIRATORY: Lungs clear to auscultation. No crackles wheezes stridor
CVS: S1, S2 sinus tachy. Bruit likely from av fistula
ABDOMEN: Soft, non-tender. No distension. Bowel sounds present
EXTREMITIES: No peripheral cyanosis. Palpable thrill LUE fistula. Lower ext edema +1-2. No calf tenderness
SEARCH DIRECTOR: AOx3. No focal deficits.
IMPRESSION:
59M ESRD TTS LUE AV fistula, hx DM, HTN p/w progressive sob nonproductive cough w/ associate lower ext swelling for the past week, prompted to visit ED with coughing interfering with sleep. ED eval notable for acute hypoxia on room air 89%
requiring 2L to maintain saturation 90s. Chest X-ray suggesting mild interstitial edema, CT however favors multifocal pneumonia, small bilateral pleural effusions also noted. Hypertensive, sinus tachy, but otherwise in no acute distress, afebrile.
No significant leukocytosis noted.
PLAN:
#Multifocal PNA
#Acute Hypoxia
Tele admit
wean O2 supplementation as tolerated
Incentive spirometer
Acapella
sputum cx if possible
follow blood cultures
urine legionella strep pna antigens if patient able to produce urine
received Cefipime in ED, cont abx with ceftriaxone and azithromycin
Follow-up Venous Duplex, Consider CTA chest with dialysis if respiratory status worsens/doesn't improve
Duoneb R QID and prn
#ESRD TTS
Nephro eval appreciated
HD as per Nephro
#Chronic Anemia
Hgb baseline
cont home iron supplementation
monitor H&H
#HTN
#Hypertensive Urgency
cont home nifedipine with holding parameters
prn Hydralazine SBP>170 or DBP>100
#History Diabetes
Most recent A1c 4.9 07/14/24, non-diabetic
no need for routine fingersticks a this time
dvt ppx heparin
Full Code
I spent a total of 77 minutes with the patient or on the floor. More than 50% of this time involved counseling and coordination of care.
--- NOTE | 2024-09-12 10:54 | EDRN ---
the pt started to desat to 83%, this RN placed the pt on 2L NC and notified the provider Johanne TOMPKINS, this RN also notified the provider again about the pts BP, no new orders were received
[2024-09-12] MEDS: MAXIPIME 2000 MG IV (10:56)
--- NOTE | 2024-09-12 13:03 | EDRN ---
this RN saw the pts blood pressure go up to 195/94 (121), the pt has not yet been admitted, this RN notified the provider Johanne TOMPKINS and no new orders were received, will notify a hospitalist of the pts elevated blood pressure
--- NOTE | 2024-09-12 13:12 | EDRN ---
this RN reached out to the admitting hospitalist Dr. Berry and notified them of the pts hypertension, awaiting for a response
[2024-09-12] MEDS: APRESOLINE 5 MG IV (13:21)
--- NOTE | 2024-09-12 13:25 | EDRN ---
this RN administered IV hydralazine per the providers orders
--- NOTE | 2024-09-12 13:59 | EDRN ---
this RN called the receiving unit and notified them that paper report was tubed up
[2024-09-12] MEDS: ROBITUSSIN DM 5 ML PO (14:48)
[2024-09-12] MEDS: ROCEPHIN 2000 MG IV (14:49)
[2024-09-12] MEDS: STERILE WATER FOR INJECTION 20 ML IV (14:49)
[2024-09-12] MEDS: ZITHROMAX INFUSION 250 IV (14:49)
[2024-09-12] MEDS: DUONEB 3 ML INH ×2 (15:06→19:28)
[2024-09-12] MEDS: LIDOCAINE 4% PATCH 2 PATCH TOPICAL (15:26)
[2024-09-12] MEDS: HEPARIN 5000 UNITS SC ×2 (15:26→23:00)
[2024-09-12] MEDS: TYLENOL 1000 MG PO (15:26)
[2024-09-12] MEDS: PROCARDIA XL (EXTENDED RELEASE) 30 MG PO (15:26)
--- NOTE | 2024-09-12 16:07 | PTCARENOTE ---
Patient admitted to 2N from ED. Patient oriented to floor and placed on tele monitor. Patient tachycardic in 110s. Patient c/o of harsh frequent productive cough and b/l upper back pain. Patient with 101.1 fever and bp 182/98. MD made aware.
Lidocaine patches, Tylenol and Procardia ordered. Medications administered per order. Call simmons within reach.
[2024-09-12] MEDS: TUMS CHEWABLE TABLET 400 MG PO (17:08)
[2024-09-12] MEDS: SENSIPAR 30 MG PO (17:08)
[2024-09-12] MEDS: RENVELA 800 MG PO (17:08)
[2024-09-12] MEDS: MUCINEX 600 MG PO (20:10)
[2024-09-12] MEDS: TYLENOL 650 MG PO (23:14)
[2024-09-13 03:16] VITALS: BP 156/86
[2024-09-13 05:45] VITALS: BMI 29.0
[2024-09-13 06:48] LABS: Hematocrit 27.6 % (39.0-52.0); Hemoglobin 8.5 g/dL (13.0-18.0); Mean Corp Hgb Conc. 30.8 g/dL (33.0-37.0); Mean Corpuscular Hgb 31.5 pg (27.0-31.0); Mean Corpuscular Volume 102.2 fL (80.0-94.0); Platelet Count 121 10^3/uL (130-400); Red Cell Dist. Width 17.7 % (11.5-14.5)
[2024-09-13 07:10] VITALS: BP 176/100
[2024-09-13] MEDS: DUONEB 3 ML INH ×4 (07:19→19:08)
[2024-09-13 07:35] LABS: Blood Urea Nitrogen 46 mg/dl (9-20); Calcium 8.7 mg/dl (8.4-10.2); Carbon Dioxide 30 mmol/L (22-30); Chloride 94 mmol/L (98-107); Estimated Creatinine Clearance 8 ml/min; Glucose 136 mg/dl (70-99); Magnesium 2.4 mg/dl (1.6-2.3); Phosphorus 5.8 mg/dl (2.5-4.5); Potassium 4.4 mmol/L (3.5-5.1); Sodium 136 mmol/L (135-145); eGFR 6.88
[2024-09-13] MEDS: MUCINEX 600 MG PO ×2 (08:05→20:43)
[2024-09-13] MEDS: PROCARDIA XL (EXTENDED RELEASE) 60 MG PO (08:05)
[2024-09-13] MEDS: ZYLOPRIM 200 MG PO (08:05)
[2024-09-13] MEDS: ROBITUSSIN DM 5 ML PO ×2 (08:05→20:43)
[2024-09-13] MEDS: TYLENOL 650 MG PO (08:05)
[2024-09-13] MEDS: LIDOCAINE 4% PATCH 2 PATCH TOPICAL (08:05)
[2024-09-13] MEDS: HEPARIN 5000 UNITS SC ×3 (08:05→23:18)
[2024-09-13] MEDS: FEOSOL 325 MG PO (08:05)
[2024-09-13 11:05] VITALS: BP 129/64
--- NOTE | 2024-09-13 11:21 | W.PN.HOSP.TC ---
Today's Communication/Plan
-
Continue antibiotics
Wean oxygen as tolerated
Dopplers and echo
Assessment / Plan
Assessment / Plan
59-year-old male presented with shortness of breath
CT chest-mild bronchial wall thickening. There are nodular opacities with surrounding groundglass opacities in the bilateral lower lobes mildly prominent mediastinal lymph nodes. Small bilateral pleural effusions.
Awake alert
Few rales bilateral on chest exam
Cardiovascular system S1-S2 appreciated, short systolic murmur at apex
Abdomen soft and nontender
Bilateral mild pedal edema
# Multifocal pneumonia
Acute hypoxic respiratory insufficiency
Blood cultures and sputum cultures
Urine Legionella and Streptococcus pneumonia antigen pending
Continue ceftriaxone and Zithromax
DuoNebs
Wean oxygen as tolerated
Continue IS and Acapella
Has mild edema of the lower extremities-I would also check Dopplers of the legs and also an echo.
# ESRD Friday dialysis
History of IgA nephropathy
Left upper extremity fistula
Secondary hyperparathyroidism
Nephrology consulted
Continue Cinacalcet
# Chronic anemia-likely secondary to kidney disease-continue iron
# Mild thrombocytopenia since 08/18/2024-follow. Outpatient hematology evaluation.
# History of diabetes most recent A1c 4.9
# Hypertension with hypertensive urgency continue nifedipine
# Gout-continue allopurinol
# DVT prophylaxis-subcutaneous heparin
# Full code
Anticipated Discharge: 24 - 48 hours
Subjective/Interval History
-
Date of Service: September 13, 2024
Objective Data
-
Labs:
Laboratory Results
09/13/24
06:23
WBC 8.0
Hgb 8.5 L
Hct 27.6 L
Plt Count 121 L
Sodium 136
Potassium 4.4
Chloride 94 L
Carbon Dioxide 30
BUN 46 H
Creatinine 8.3 H*
Glucose 136 H
Calcium 8.7
Vital Signs:
Vital Signs
Temp Pulse Resp BP Pulse Ox
99.9 F 102 16 176/100 97
09/13/24 07:10 09/13/24 11:16 09/13/24 11:16 09/13/24 07:10 09/13/24 11:16
I&O
09/12/24 09/13/24 09/14/24
06:59 06:59 06:59
Intake Total 700 / 700
Balance 700 / 700
--- NOTE | 2024-09-13 12:04 | W.PN.NEPH.PH ---
Today's Communication / Plan
-
Dialysis nurse
Assessment/Plan
-
Impression:
ESRD TTS
Anemia.
Hx of GI bleed
diabetes mellitus type 2
Hyperphosphatemia
Secondary hyperparathyroidism
Plan:
Cough:
Multifocal pneumonia noted on CAT scan personally reviewed
Continue antibiotics
Echo ordered and pending
No acute need for dialysis today from a volume or electrolyte standpoint
Dialysis ordered for tomorrow
See orders for details= estimated dry weight 78 kg
-
-
Date of Service: September 13, 2024
CC / HPI / ROS
-
Chief Complaint:
ESRD
History of Present Illness:
ESRD on Friday schedule
Hemodynamically stable
Review of Systems:
No fever
Cough with moderate shortness of breath
No chest pain
Labs
-
Labs:
WBC 8.0 10^3/uL (4.8-10.8) 09/13/24 06:23
RBC 2.70 10^6/uL (4.70-6.10) L 09/13/24 06:23
Hgb 8.5 g/dL (13.0-18.0) L 09/13/24 06:23
Hct 27.6 % (39.0-52.0) L 09/13/24 06:23
Plt Count 121 10^3/uL (130-400) L 09/13/24 06:23
Sodium 136 mmol/L (135-145) 09/13/24 06:23
Potassium 4.4 mmol/L (3.5-5.1) 09/13/24 06:23
Chloride 94 mmol/L (98-107) L 09/13/24 06:23
Carbon Dioxide 30 mmol/L (22-30) 09/13/24 06:23
BUN 46 mg/dl (9-20) H 09/13/24 06:23
Creatinine 8.3 mg/dL (0.7-1.3) H* 09/13/24 06:23
eGFR 6.88 09/13/24 06:23
Glucose 136 mg/dl (70-99) H 09/13/24 06:23
Calcium 8.7 mg/dl (8.4-10.2) 09/13/24 06:23
Phosphorus 5.8 mg/dl (2.5-4.5) H 09/13/24 06:23
Albumin 3.8 g/dl (3.5-5.0) 09/12/24 08:35
Physical Exam
-
Vital Signs:
Vital Signs
Temp Pulse Resp BP Pulse Ox
99.9 F 102 16 176/100 97
09/13/24 07:10 09/13/24 11:16 09/13/24 11:16 09/13/24 07:10 09/13/24 11:16
Respiratory:: Bilateral: Coarse and Bilateral: Rhonchi
Abdomen:: Soft
Bowel Sounds:: Normal
Extremity Edema:: +1: Bilateral:
Bain Catheter: No
--- NOTE | 2024-09-13 13:27 | CM ---
Patient seen at bedside.
IA completed
Dx: multifocal pneumonia - cont antibiotics
PMH: ESRD on HD, DM, HTN
patient to have HD tomorrow
He receives outpatient dialysis with [facility] (spoke with Ade)
Lives in a multistory home [place] [facility] - 5 steps to enter home
PLOF: Reports independent, uses no assistive device.
DME: denies
PCP: Adelaida Holder
Pharmacy: [address], [place]
PLAN: Home, no needs anticipated
[facility] fax #: [phone]
[2024-09-13] MEDS: ZITHROMAX INFUSION 250 IV (15:01)
[2024-09-13] MEDS: STERILE WATER FOR INJECTION 20 ML IV (15:01)
[2024-09-13] MEDS: ROCEPHIN 2000 MG IV (15:01)
[2024-09-13 15:53] VITALS: BP 136/72
[2024-09-13] MEDS: SENSIPAR 30 MG PO (17:13)
[2024-09-13] MEDS: TUMS CHEWABLE TABLET 400 MG PO (17:13)
[2024-09-13] MEDS: RENVELA 800 MG PO (17:16)
[2024-09-13 19:04] VITALS: BP 160/87
[2024-09-13 22:57] VITALS: BP 166/86
[2024-09-13] MEDS: ANESTHETIC LOZENGE 1 LOZENGE PO (23:18)
[2024-09-13] MEDS: OCEAN, SALINE MIST 1 SPRAYS NASAL (23:19)
[2024-09-14 03:05] VITALS: BP 156/88
[2024-09-14 05:38] VITALS: BMI 29.4
[2024-09-14] MEDS: DUONEB 3 ML INH ×4 (07:34→19:44)
[2024-09-14 07:37] VITALS: BP 147/85
[2024-09-14 07:37] LABS: Hematocrit 25.3 % (39.0-52.0); Mean Corp Hgb Conc. 31.6 g/dL (33.0-37.0); Mean Corpuscular Hgb 31.4 pg (27.0-31.0); Mean Corpuscular Volume 99.2 fL (80.0-94.0); Red Blood Cell Count 2.55 10^6/uL (4.70-6.10); White Blood Cell Count 5.1 10^3/uL (4.8-10.8)
[2024-09-14 07:55] LABS: Blood Urea Nitrogen 63 mg/dl (9-20); Calcium 8.3 mg/dl (8.4-10.2); Carbon Dioxide 28 mmol/L (22-30); Chloride 92 mmol/L (98-107); Estimated Creatinine Clearance 8 ml/min; Glucose 112 mg/dl (70-99); Potassium 4.7 mmol/L (3.5-5.1); Sodium 137 mmol/L (135-145); eGFR 5.25
[2024-09-14 08:02] LABS: Platelet Count 96 10^3/uL (130-400)
[2024-09-14] MEDS: PROCARDIA XL (EXTENDED RELEASE) PO (08:05)
[2024-09-14] MEDS: MUCINEX 600 MG PO ×2 (08:05→19:34)
[2024-09-14] MEDS: ZYLOPRIM 200 MG PO (08:05)
[2024-09-14] MEDS: HEPARIN 5000 UNITS SC ×3 (08:05→23:54)
[2024-09-14] MEDS: FEOSOL 325 MG PO (08:05)
[2024-09-14] MEDS: LIDOCAINE 4% PATCH 2 PATCH TOPICAL (08:05)
[2024-09-14] MEDS: OCEAN, SALINE MIST 1 SPRAYS NASAL (08:06)
[2024-09-14] MEDS: ROBITUSSIN DM 5 ML PO ×2 (08:12→18:05)
[2024-09-14] MEDS: B COMPLEX w/VITAMIN C 1 CAPLET PO (08:12)
--- NOTE | 2024-09-14 09:22 | PN.CDI ---
Addendum entered and electronically signed by Reynaldo Boss MD 09/15/24 07:36:
Documentation is complete at this time.
Original Note:
CDI
- -
CDI:
Physician Documentation Request
Admit Date: 09/12/24 13:32
Dear Doctor Gera,
Please review the following and provide your response in the progress notes.
Clinical Indicators:
PN, 09/13
# Multifocal pneumonia
Acute hypoxic respiratory insufficiency
Selected Entries
09/12/24
15:20 09/12/24
17:12 09/12/24
19:18
Temp 101.1 F H 100.1 F 99.1 F
Pulse 109 102
09/12/24
19:33 09/12/24
21:36 09/12/24
23:15
Temp 99.4 F 100.8 F H
Pulse 88
09/12/24
23:16 09/13/24
03:16 09/13/24
07:10
Temp 100.8 F H
Pulse 102 117
09/13/24
07:23
Temp
Pulse 107
Based on the above and your clinical assessment, please clarify which of the following most accurately describes the status of the patient's infection:
Sepsis
- Systemic manifestations of infection, with 2 or more SIRS criteria which include:
- Fever >100.4 degrees F or hypothermia < 96.8 degrees F
- Leukocytosis - WBC > 12,000 or leukopenia - WBC < 4,000 or > 10% bands
- Tachycardia > 90 beats per minute
- Tachypnea - RR > 20 breaths per minute or PaCO2 , 32mmHg
Source: Merck Manual 2013
- Indicate the known or suspected underlying infection, such as UTI,
- pneumonia or cellulitis
Localized Infection Only, Without Systemic Illness
- indicate the site/source, such as UTI, pneumonia etc.
Other(please specify)
Use of terms such as suspected, likely, concern for, or probable (associated with a specific diagnosis that is being evaluated, monitored, or treated as if it exists) are acceptable and can be coded in the inpatient setting, when documented at the
time of discharge.
Thank you,
Shagufta Wong RN BSN CCDS
CDI Specialist
please contact via tiger text
Please use your independent medical judgment in providing your response.
[2024-09-14 11:29] VITALS: BP 152/54
--- NOTE | 2024-09-14 12:39 | CM ---
Patient seen at bedside.
HD today
no needs
Patient goes to outpatient at [facility]
PLAN: home, No needs anticipated
[facility] fax #: [phone]
[2024-09-14] MEDS: HEPARIN 1000 UNITS IV (12:45)
[2024-09-14] MEDS: HEPARIN 500 UNITS IV (13:45)
--- NOTE | 2024-09-14 13:59 | W.PN.NEPH.HD ---
Progress Note - Hemodialysis
-
Date of Service: September 14, 2024
Duration: 30 minutes and 3 hours
Potassium Bath: 2
Calcium Bath: 2.5
Opti-Dialyzer: 160
Ultrafiltration: Other (1-2kg)
Blood Flow: 400
Dialysate Flow: 600
Heparin: no
EPO: [id number]
[2024-09-14] MEDS: RETACRIT 10000 UNITS IV (14:46)
[2024-09-14 15:06] VITALS: BP 149/81
[2024-09-14] MEDS: ZITHROMAX INFUSION 250 IV (15:36)
--- NOTE | 2024-09-14 15:54 | W.PN.HOSP.TC ---
Today's Communication/Plan
-
Wean oxygen off as tolerated for sats above 92
Assessment / Plan
Assessment / Plan
59-year-old male presented with shortness of breath
CT chest-mild bronchial wall thickening. There are nodular opacities with surrounding groundglass opacities in the bilateral lower lobes mildly prominent mediastinal lymph nodes. Small bilateral pleural effusions.
Echo 09/13/2024-normal LV size and function. Mild concentric LVH. Severely dilated LA. Mitral sclerosis without stenosis. Mild to moderate MR. Mild TR. Pulmonary artery pressure 55 to 60 mmHg. Normal pericardium. IVC dilated and does not
collapse
Awake alert
Chest -Mostly CTA
Cardiovascular system S1-S2 appreciated, systolic murmur at apex
Abdomen soft and nontender
Bilateral mild pedal edema
# Multifocal pneumonia
Acute hypoxic respiratory insufficiency
Blood cultures and sputum cultures
Urine Legionella and Streptococcus pneumonia antigen pending
Continue ceftriaxone and Zithromax
DuoNebs
Wean oxygen as tolerated
Continue IS and Acapella
Has mild edema of the lower extremities-I would also check Dopplers of the legs and also an echo.
# ESRD Friday dialysis
History of IgA nephropathy
Left upper extremity fistula
Secondary hyperparathyroidism
Nephrology consulted and following
Continue Cinacalcet
# Chronic anemia-likely secondary to kidney disease-continue iron
# Mild thrombocytopenia since 08/18/2024-follow. Outpatient hematology evaluation.
# History of diabetes most recent A1c 4.9
# Hypertension with hypertensive urgency continue nifedipine
# Pulmonary hypertension-sleep study as outpatient
# Moderate MR-outpatient cardiology evaluation
# Gout-continue allopurinol
# DVT prophylaxis-subcutaneous heparin
# Full code
Anticipated Discharge: Within 24 hours
Subjective/Interval History
-
Date of Service: September 14, 2024
Objective Data
-
Labs:
Laboratory Results
09/14/24
06:47
WBC 5.1
Hgb 8.0 L
Hct 25.3 L
Plt Count 96 L D
Sodium 137
Potassium 4.7
Chloride 92 L
Carbon Dioxide 28
BUN 63 H
Creatinine 10.4 H*
Glucose 112 H
Calcium 8.3 L
Vital Signs:
Vital Signs
Temp Pulse Resp BP Pulse Ox
98.5 F 92 16 149/81 96
09/14/24 15:06 09/14/24 15:06 09/14/24 15:06 09/14/24 15:06 09/14/24 15:06
I&O
09/13/24 09/14/24 09/15/24
06:59 06:59 06:59
Intake Total 700 / 700 910 / 910 480 / 480
Balance 700 / 700 910 / 910 480 / 480
[2024-09-14] MEDS: STERILE WATER FOR INJECTION 20 ML IV (16:30)
[2024-09-14] MEDS: ROCEPHIN 2000 MG IV (16:30)
[2024-09-14] MEDS: SENSIPAR 30 MG PO (16:59)
[2024-09-14] MEDS: TUMS CHEWABLE TABLET 400 MG PO (16:59)
[2024-09-14] MEDS: RENVELA 800 MG PO (16:59)
[2024-09-14 19:22] VITALS: BP 165/83
[2024-09-14 23:01] VITALS: BP 168/91
[2024-09-15 03:31] VITALS: BP 144/98
[2024-09-15 06:00] VITALS: BMI 28.3
[2024-09-15 07:02] LABS: Hematocrit 25.3 % (39.0-52.0); Hemoglobin 8.2 g/dL (13.0-18.0); Mean Corp Hgb Conc. 32.4 g/dL (33.0-37.0); Mean Corpuscular Hgb 32.3 pg (27.0-31.0); Mean Corpuscular Volume 99.6 fL (80.0-94.0); Mean Platelet Volume 11.8 fL (7.4-10.4); Platelet Count 97 10^3/uL (130-400); Red Blood Cell Count 2.54 10^6/uL (4.70-6.10); Red Cell Dist. Width 16.6 % (11.5-14.5); White Blood Cell Count 4.7 10^3/uL (4.8-10.8)
[2024-09-15] MEDS: DUONEB 3 ML INH ×2 (07:23→11:01)
[2024-09-15 07:24] LABS: Blood Urea Nitrogen 37 mg/dl (9-20); Calcium 8.4 mg/dl (8.4-10.2); Carbon Dioxide 28 mmol/L (22-30); Chloride 92 mmol/L (98-107); Estimated Creatinine Clearance 10 ml/min; Glucose 90 mg/dl (70-99); Potassium 4.8 mmol/L (3.5-5.1); Sodium 134 mmol/L (135-145); eGFR 8.74
[2024-09-15 07:32] VITALS: BP 159/95
[2024-09-15] MEDS: HEPARIN 5000 UNITS SC (08:14)
[2024-09-15] MEDS: MUCINEX 600 MG PO (08:14)
[2024-09-15] MEDS: ZYLOPRIM 200 MG PO (08:14)
[2024-09-15] MEDS: PROCARDIA XL (EXTENDED RELEASE) 60 MG PO (08:14)
[2024-09-15] MEDS: FEOSOL 325 MG PO (08:15)
[2024-09-15] MEDS: LIDOCAINE 4% PATCH 2 PATCH TOPICAL (08:15)
[2024-09-15 11:08] VITALS: BP 135/73
--- NOTE | 2024-09-15 11:17 | W.PN.HOSP.TC ---
Addendum entered and electronically signed by Reynaldo Bsos MD 09/15/24 14:15:
Spoke to patient's and updated. All follow-up care discussed. Medicines also discussed.
Original Note:
Today's Communication/Plan
-
Discharge
Assessment / Plan
Assessment / Plan
59-year-old male presented with shortness of breath
CT chest-mild bronchial wall thickening. There are nodular opacities with surrounding groundglass opacities in the bilateral lower lobes mildly prominent mediastinal lymph nodes. Small bilateral pleural effusions.
Echo 09/13/2024-normal LV size and function. Mild concentric LVH. Severely dilated LA. Mitral sclerosis without stenosis. Mild to moderate MR. Mild TR. Pulmonary artery pressure 55 to 60 mmHg. Normal pericardium. IVC dilated and does not
collapse
Awake alert
Chest -few scattered wheezes very short exp
Cardiovascular system S1-S2 appreciated, systolic murmur at apex
Abdomen soft and nontender
Bilateral mild pedal edema
# Multifocal pneumonia
Acute hypoxic respiratory insufficiency
Blood cultures and sputum cultures neg
Urine Legionella and Streptococcus pneumonia antigen neg
DuoNebs
Off O2
Home oxygen evaluation noted. Patient walked 300 feet without hypoxia.
Continue IS and Acapella
He has cough mostly at nighttime when he lays down suspect postnasal drip. Discussed about getting Flonase and using it at nighttime.
# ESRD Friday dialysis
History of IgA nephropathy
Left upper extremity fistula
Secondary hyperparathyroidism
Nephrology consulted and following
Continue Cinacalcet
# Chronic anemia-likely secondary to kidney disease-continue iron
# Mild thrombocytopenia since 08/18/2024-also seems to have mild pancytopenia once infection resolves he needs outpatient hematology evaluation.
# History of diabetes most recent A1c 4.9
# Hypertension with hypertensive urgency continue nifedipine
# Pulmonary hypertension-sleep study as outpatient
# Moderate MR-outpatient cardiology evaluation
# Gout-continue allopurinol
# DVT prophylaxis-subcutaneous heparin
# Full code
Discussed with the patient regarding outpatient follow-up needs. I have also reached out to cardiology to schedule an appointment to be seen as outpatient.\\
Discussed with nephrology. Okay for discharge
Discussed with respiratory at bedside
Patient wants me to wait until 1:30 pm to call his .
He feels well to go home.
Discussed that cough will last longer before it completely goes away.
More than 30 minutes spent in discharge including
Final examination of the patient
Summarizing hospital stay
Instructions for continuing care to all relevant caregivers
Preparation of discharge records, prescriptions, and referral forms
Total time spent (in minutes): 36 min
Anticipated Discharge: Today
Subjective/Interval History
-
Date of Service: September 15, 2024
Objective Data
-
Labs:
Laboratory Results
09/15/24
06:35
WBC 4.7 L
Hgb 8.2 L
Hct 25.3 L
Plt Count 97 L
Sodium 134 L
Potassium 4.8
Chloride 92 L
Carbon Dioxide 28
BUN 37 H
Creatinine 6.8 H*
Glucose 90
Calcium 8.4
Vital Signs:
Vital Signs
Temp Pulse Resp BP Pulse Ox
98.6 F 93 18 135/73 92
09/15/24 11:08 09/15/24 11:08 09/15/24 11:08 09/15/24 11:08 09/15/24 11:08
I&O
09/14/24 09/15/24 09/16/24
06:59 06:59 06:59
Intake Total 910 / 910 960 / 960
Balance 910 / 910 960 / 960
[2024-09-15] MEDS: ZITHROMAX 500 MG PO (12:29)
[2024-09-15] MEDS: STERILE WATER FOR INJECTION 20 ML IV (12:31)
[2024-09-15] MEDS: ROCEPHIN 2000 MG IV (12:31)
--- NOTE | 2024-09-15 13:01 | CM ---
Patient seen at bedside.
Home 02 eval done by respiratory today - Patient walked 300 feet without hypoxia
No IMM needed
PLAN: Home, no needs
to transport
--- NOTE | 2024-09-15 14:14 | W.DS.TRANS ---
Addendum entered and electronically signed by Reynaldo Boss MD 09/15/24 15:12:
Dictation- [id number]
Original Note:
DC Summary - [employer] Account [employer]
-
Discharge Instructions:
Discharge Diagnosis/Procedures Multifocal pneumonia
End-stage renal disease
History of IgA nephropathy
Chronic anemia
Mild pancytopenia
Diabetes-diet controlled
Hypertension
Pulmonary hypertension
Moderate mitral regurgitation
Gout
Diet Diabetic, Carb Controlled,2 Gram Sodium,Restrict
fluids to 64 oz
Activity As tolerated,No strenuous activity
Instructions:
Stand-Alone Forms:
Changes to Home Medications: Yes
Discharge Medications:
DC Medications w/original date entered in [employer]
allopurinol 100 mg tablet 200 mg PO DAILY Gout 10/08/16
sevelamer carbonate 800 mg tablet 800 mg PO QPM Kidney Disease 12/16/18
B-complex with vitamin C 1 tab PO TUTHSA Supplement 08/19/24
calcium carbonate (Tums) 400 mg PO QPM Indigestion 08/19/24
cinacalcet 30 mg tablet 30 mg PO QPM Kidney Disease 08/19/24
nifedipine 60 mg tablet,extended release 60 mg PO DAILY Blood Pressure 08/19/24
albuterol sulfate 90 mcg/actuation aerosol inhaler 2 puff inhalation Q6H PRN shortness of breath or wheezing #6.7 grams 09/15/24
azithromycin 250 mg tablet 500 mg (2 x 250 mg) PO DAILY Lung/breathing issues #2 tabs 09/15/24
cefuroxime axetil 250 mg tablet 250 mg PO DAILY Lung/breathing issues #3 tabs 09/15/24
ferrous sulfate 325 mg (65 mg iron) tablet (Iron (ferrous sulfate)) 325 mg PO DAILY anemia #20 tabs 09/15/24
fluticasone furoate 27.5 mcg/actuation nasal spray,suspension (Flonase Sensimist) 2 spray intranasal HS Cough #18.2 mL 09/15/24
guaifenesin 600 mg tablet, extended release 12 hr 600 mg PO Q12 Lung/breathing issues #20 tabs 09/15/24
Home Medication Changes
new
albuterol sulfate 90 mcg/actuation aerosol inhaler 2 puff inhalation Q6H PRN shortness of breath or wheezing #6.7 grams 09/15/24
azithromycin 250 mg tablet 500 mg (2 x 250 mg) PO DAILY Lung/breathing issues #2 tabs 09/15/24
cefuroxime axetil 250 mg tablet 250 mg PO DAILY Lung/breathing issues #3 tabs 09/15/24
ferrous sulfate 325 mg (65 mg iron) tablet (Iron (ferrous sulfate)) 325 mg PO DAILY anemia #20 tabs 09/15/24
fluticasone furoate 27.5 mcg/actuation nasal spray,suspension (Flonase Sensimist) 2 spray intranasal HS Cough #18.2 mL 09/15/24
guaifenesin 600 mg tablet, extended release 12 hr 600 mg PO Q12 Lung/breathing issues #20 tabs 09/15/24
Pending Results: No
== END 2024-09-15 15:09 | disposition home or self-care (01) | DRG 193 ==
LOC: 2 NORTH 13:32
PROVIDERS: Physician Assistant; ADMITTING PHYSICIAN Internal Medicine; ATTENDING PHYSICIAN Hospitalist; CONSULT PHYSICIAN Specialist; EMERGENCY PHYSICIAN Emergency Medicine; FAMILY PHYSICIAN Internal Medicine Geriatric Medicine
PROC: 5A1D70Z Performance of Urinary Filtration, Intermittent, Less than 6 Hours Per Day (ICD-10-PCS; 2024-09-14)
DX: J18.9 Pneumonia, unspecified organism (principal); N18.6 End stage renal disease; D61.818 Other pancytopenia; N25.81 Secondary hyperparathyroidism of renal origin; N02.B1 Recurrent and persistent immunoglobulin A nephropathy with glomerular lesion; M10.9 Gout, unspecified; D63.1 Anemia in chronic kidney disease; E83.39 Other disorders of phosphorus metabolism; R09.02 Hypoxemia; I16.0 Hypertensive urgency; E11.22 Type 2 diabetes mellitus with diabetic chronic kidney disease; R06.89 Other abnormalities of breathing; I27.20 Pulmonary hypertension, unspecified; I34.0 Nonrheumatic mitral (valve) insufficiency; Z99.2 Dependence on renal dialysis; Z79.899 Other long term (current) drug therapy; Z20.822 Contact with and (suspected) exposure to COVID-19; Z86.39 Personal history of other endocrine, nutritional and metabolic disease
CPT/HCPCS: 71046; 71250; 80048; 80053; 83735; 84100; 85025; 85027; 87040; 87070; 87205; 87449; 87502; 87811; 87899; 93005; 93306; 93970; 94640; 96374; 99285; G0257; Q5106

== ENCOUNTER → 2024-09-17 10:37 | Outpatient (REF) | payer MEDICAID, SELFPAY ==
[2024-09-17 12:03] LABS: % Basophils 0.2 % (0-2); % Eosinophils 3.3 % (0-6); % Immature Granulocytes 0.2 % (0-0.5); % Lymphocytes 23.3 % (20.5-51.1); % Monocytes 8.1 % (1.7-9.3); % Neutrophils 64.9 % (42.2-75.2); Absolute Eosinophils 0.2 10^3/uL (0-0.7); Absolute Lymphocytes 1.5 10^3/uL (1.2-3.4); Absolute Monocytes 0.5 10^3/uL (0.1-0.6); Absolute Neutrophils 4.1 10^3/uL (1.4-6.5); Hematocrit 29.2 % (39.0-52.0); Hemoglobin 9.2 g/dL (13.0-18.0); Mean Corp Hgb Conc. 31.5 g/dL (33.0-37.0); Mean Corpuscular Volume 98.3 fL (80.0-94.0); Mean Platelet Volume 11.3 fL (7.4-10.4); Nucleated Red Blood Cells % 0 % (-); Platelet Count 156 10^3/uL (130-400); Red Blood Cell Count 2.97 10^6/uL (4.70-6.10); Red Cell Dist. Width 16.4 % (11.5-14.5); White Blood Cell Count 6.3 10^3/uL (4.8-10.8)
[2024-09-17 12:18] LABS: Iron 57 ug/dl (49-181)
[2024-09-17 12:28] LABS: Percent Saturation 25 % (20-50); Total Iron Binding Capacity 226 ug/dl (261-462)
== END ==
LOC: REG 10:37
PROVIDERS: ATTENDING PHYSICIAN Family Medicine
DX: D62 Acute posthemorrhagic anemia (principal)
CPT/HCPCS: 36415; 82728; 83540; 83550; 85025

== ENCOUNTER → 2024-10-15 08:46 | Outpatient (REF) | payer MEDICAID, SELFPAY | LOC: HWRAD 08:46 | PROVIDERS: ATTENDING PHYSICIAN Nurse Practitioner Adult Health; FAMILY PHYSICIAN Family Medicine | DX: J18.9 Pneumonia, unspecified organism (principal); R09.02 Hypoxemia | CPT/HCPCS: 71250 ==

== ENCOUNTER → 2024-10-26 22:00 | Outpatient (REF) | payer MEDICAID, SELFPAY | LOC: DHSLP 22:00 | PROVIDERS: ATTENDING PHYSICIAN Internal Medicine Critical Care Medicine | DX: G47.33 Obstructive sleep apnea (adult) (pediatric) (principal); G47.31 Primary central sleep apnea; R09.02 Hypoxemia; G47.00 Insomnia, unspecified | CPT/HCPCS: 95810 ==

== ENCOUNTER → 2024-11-03 09:03 | Outpatient (REF) | payer MEDICAID, SELFPAY ==
[2024-11-03 09:43] LABS: % Basophils 0.2 % (0-2); % Eosinophils 2.7 % (0-6); % Immature Granulocytes 0.2 % (0-0.5); % Lymphocytes 24.1 % (20.5-51.1); % Neutrophils 63.8 % (42.2-75.2); Absolute Eosinophils 0.2 10^3/uL (0-0.7); Absolute Lymphocytes 1.3 10^3/uL (1.2-3.4); Absolute Monocytes 0.5 10^3/uL (0.1-0.6); Absolute Neutrophils 3.5 10^3/uL (1.4-6.5); Hematocrit 29.3 % (39.0-52.0); Hemoglobin 9.4 g/dL (13.0-18.0); Mean Corp Hgb Conc. 32.1 g/dL (33.0-37.0); Mean Corpuscular Hgb 31.9 pg (27.0-31.0); Mean Corpuscular Volume 99.3 fL (80.0-94.0); Mean Platelet Volume 11.4 fL (7.4-10.4); Nucleated Red Blood Cells % 0 % (-); Platelet Count 101 10^3/uL (130-400); Red Blood Cell Count 2.95 10^6/uL (4.70-6.10); Red Cell Dist. Width 15.9 % (11.5-14.5); White Blood Cell Count 5.6 10^3/uL (4.8-10.8)
== END ==
LOC: REG 09:03
PROVIDERS: ATTENDING PHYSICIAN Internal Medicine Hematology & Oncology; FAMILY PHYSICIAN Family Medicine
DX: N18.5 Chronic kidney disease, stage 5 (principal); D50.0 Iron deficiency anemia secondary to blood loss (chronic); D63.1 Anemia in chronic kidney disease
CPT/HCPCS: 36415; 85025

== ENCOUNTER → 2025-02-02 07:24 | Outpatient (REF) | payer MEDICAID, SELFPAY | LOC: RAD 07:24 | PROVIDERS: ATTENDING PHYSICIAN Family Medicine | DX: R10.84 Generalized abdominal pain (principal) | CPT/HCPCS: 74018 ==

== ENCOUNTER → 2025-02-09 12:08 | Outpatient (REF) | payer MEDICAID, SELFPAY | LOC: REG 12:08 | PROVIDERS: ATTENDING PHYSICIAN Family Medicine | DX: R10.84 Generalized abdominal pain (principal) | CPT/HCPCS: 36415; 87045; 87046; 87324; 87427; 87449 ==

== ENCOUNTER 2025-02-09 17:31 | Emergency (ER) | payer MEDICAID, SELFPAY ==
[2025-02-09 17:31] VITALS: BMI 31.1
[2025-02-09 17:35] VITALS: BP 144/71
[2025-02-09 18:06] LABS: % Basophils 0.2 % (0-2); % Eosinophils 3.7 % (0-6); % Immature Granulocytes 0.2 % (0-0.5); % Lymphocytes 25.1 % (20.5-51.1); % Monocytes 15.5 % (1.7-9.3); % Neutrophils 55.3 % (42.2-75.2); Absolute Eosinophils 0.2 10^3/uL (0-0.7); Absolute Monocytes 0.6 10^3/uL (0.1-0.6); Absolute Neutrophils 2.2 10^3/uL (1.4-6.5); Hemoglobin 11.5 g/dL (13.0-18.0); Mean Corp Hgb Conc. 32.9 g/dL (33.0-37.0); Mean Corpuscular Hgb 33.8 pg (27.0-31.0); Mean Corpuscular Volume 102.9 fL (80.0-94.0); Mean Platelet Volume 11.8 fL (7.4-10.4); Nucleated Red Blood Cells % 0 % (-); Platelet Count 106 10^3/uL (130-400); Red Cell Dist. Width 13.5 % (11.5-14.5); White Blood Cell Count 4.1 10^3/uL (4.8-10.8)
[2025-02-09 18:09] LABS: Lactic Acid 2.2 mmol/L (0.7-2.0)
--- NOTE | 2025-02-09 18:17 | ED.GENMED ---
History of Present Illness
General
Chief Complaint: Abdominal Symptoms
Source: patient
Exam Limitations: none
Time Seen by Provider: 02/09/25 18:17
Nursing documentation reviewed up to this point in time: agreed with
History of Present Illness
History of Present Illness:
59-year-old male with history of HTN, HLD, ESRD on dialysis, NIDDM, left arm dialysis graft presents for persistent diarrhea and right side abdominal pain
States diarrhea off and on for past month, since eating lunch yesterday, more frequent diarrhea, 'up all night' with diarrhea, non bloody. Last diarrhea 30 minutes ago.
Saw PCP last week and had out pt 1 view abdomen xray on 02/02 (report reviewed: 'nonobstructive intestinal bowel gas pattern)'
Brought stool sample to out pt lab this a.m.
Patient denies fever. He states he vomited once last night. He does feel nauseous. He denies chest pain or trouble breathing. No known sick contacts. No recent travel. No recent antibiotic use.
Past History
Past History
ED Past Medical History: HTN, NIDDM, Renal failure (hemo dialysis) and Other (Chronic anemia, Secondary hyperparathyroidism)
ED Past Surgical History: Appendectomy and Other (LUE AV fistula)
Social History
Personal:
Review of Systems
Review of Systems
Allergies reviewed?: Yes
All Other Systems: ROS reviewed and negative except as documented in HPI and ROS
Constitutional: Denies fever
Respiratory: Denies trouble breathing
Cardiac: Denies chest pain
ABD/GI: Reports abdominal pain, nausea and diarrhea; Denies bloody stools or black stools
: Reports other (Dialysis patient, makes a little urine)
Musculoskeletal: Reports no symptoms
Skin: Reports other (AV fistula left arm)
Neurological: Reports no symptoms
Phy Exam
Physical Exam
Physical Exam:
GENERAL: No acute distress. A&Ox3.
CONSTITUTIONAL: Afebrile.
EYES: clear, conjunctivae normal
ENMT: moist mucus membranes, Pharynx nl
RESPIRATORY: Regular respirations, nonlabored, lungs clear.
CARDIOVASCULAR: Regular rate and rhythm, no murmurs, no rubs.
GI: Soft, mild to moderate tenderness right side abdomen, nondistended, normal BS
MUSCULOSKELETAL: Moves with ease. Well perfused.
SKIN: Warm, dry, normal. Left arm AV fistula intact
PSYCH: Normal mood and affect. Well kept, interactive and appropriate
NEUROLOGIC: Awake, alert and oriented. No focal neurological deficits
Course
Orders/Labs/Results
Orders:
Orders
02/09/25 17:47
CBC/With Diff [Complete Blood Count/With Diff] Urgent
Comprehensive Metabolic Panel Urgent
Lactic Acid Urgent
Lipase Urgent
02/09/25 18:28
0.9% Sodium Chloride 500 ml [Nss] 500 ml IV BOLUS
Ondansetron Injectable [Zofran] 4 mg IV NOW STA
02/09/25 18:30
CT Abd/pel Without Iv Or Oral Urgent
Comment:
Reason For Exam: R side pain, diarrhea, elevated Lipase
02/09/25 18:39
Electrocardiogram (*1) Urgent
Reason for Study: Other
Other Reason for Exam: Hyperkalemia
EKG- Treatment ONCE
02/09/25 18:46
Sodium Zirconium Cyclosilicate [Lokelma] 10 gram PO NOW STA
Abnormal Lab Results
02/09/25
17:47
WBC 4.1 L 10^3/uL
(4.8-10.8)
RBC 3.40 L 10^6/uL
(4.70-6.10)
Hgb 11.5 L g/dL
(13.0-18.0)
Hct 35.0 L %
(39.0-52.0)
MCV 102.9 H fL
(80.0-94.0)
MCH 33.8 H pg
(27.0-31.0)
MCHC 32.9 L g/dL
(33.0-37.0)
Plt Count 106 L 10^3/uL
(130-400)
MPV 11.8 H fL
(7.4-10.4)
Absolute Lymphs (auto) 1.0 L 10^3/uL
(1.2-3.4)
Monocytes % 15.5 H %
(1.7-9.3)
Potassium 6.3 H* mmol/L
(3.5-5.1)
Chloride 97 L mmol/L
(98-107)
BUN 57 H mg/dl
(9-20)
Creatinine 8.1 H* mg/dL
(0.7-1.3)
Glucose 137 H mg/dl
(70-99)
Lactic Acid 2.2 H mmol/L
(0.7-2.0)
ALT 53 H U/L
(0-50)
Lipase 416 H U/L
(23-300)
02/09/25 17:47
02/09/25 17:47
Vital Signs
Initial and Last Documented VS:
Initial Vital Signs
Temp Pulse Resp BP Pulse Ox
98.0 F 71 20 144/71 99
02/09/25 17:35 02/09/25 17:35 02/09/25 17:35 02/09/25 17:35 02/09/25 17:35
Last Documented Vital Signs
Temp Pulse Resp BP Pulse Ox
98.4 F 73 20 154/78 90
02/09/25 18:00 02/09/25 20:45 02/09/25 20:45 02/09/25 20:00 02/09/25 20:45
Cell Technician consulted with Physician
Cell Technician consulted with physician?: Yes
Name of Physician Consulted: Colton
MDM/Problems Addressed
Differential Diagnosis Includes:
Colitis, diverticulitis
Pancreatitis
Hyperkalemia
MDM/Problems Addressed:
59-year-old male with history of HTN, HLD, ESRD on dialysis T-Th-Sat, NIDDM, left arm dialysis graft presents for persistent diarrhea and right side abdominal pain
States diarrhea off and on for past month, since eating lunch yesterday, more frequent diarrhea, 'up all night' with diarrhea, non bloody. Last diarrhea 30 minutes ago.
Saw PCP last week and had out pt 1 view abdomen xray on 02/02 (report reviewed: 'nonobstructive intestinal bowel gas pattern)'
Brought stool sample to out pt lab this a.m.
Patient denies fever. He states he vomited once last night. He does feel nauseous. He denies chest pain or trouble breathing. No known sick contacts. No recent travel. No recent antibiotic use.
Afebrile, NAD
6:30 PM:
CBC with no clinically significant abnormality
CMP consistent with his kidney disease. Potassium 6.3, lipase 416 lactic 2.[address] Segura
Lokelma ordered
EKG: NSR
7:50 PM:
CAT scan abdomen pelvis plain radiology report read: IMPRESSION: No acute pathology of the abdomen or pelvis identified.
Splenic cyst. Stable.
Too small to characterize hypodense renal lesions likely benign cysts. Stable. A solid mass cannot be excluded without IV contrast.
Diverticulosis. No evidence of acute diverticulitis.
Moderate bladder wall thickening likely at least partially due to limited distention. Cystitis and bladder outlet obstruction not excluded.
Moderate prostate hypertrophy. Stable
Stool culture from earlier today micro report reviewed: Negative for C. difficile, Salmonella/Shigella, Campylobacter and Shiga toxin tests are all pending
8:30 PM:
Previous records reviewed and potassium was 6.4 on 08/18/2024, Dr. Power was consulted, 1 dose of Lokelma was given and patient was okay for discharge for dialysis the next day. We will follow the same routine here today
All results reviewed with patient. He states he is feeling better and is comfortable going home.
Patient ambulated out with normal gait at discharge
*EKG
EKG Intrepretation Date: 02/09/25
Interpretation: normal
Heart Rate: 67
Rate: normal
Rhythm: sinus
[place]: normal axis
Interval: normal interval
QRS Pattern: normal QRS
Ischemia: no ischemia
*Critical Care Note
Total Time (30-74mins, 75-104mins- exclusive of procedures): Not Applicable
ED Attending Note
-
Portions of this chart may have been created with voice recognition software.� Occasional wrong word or��sound alike� substitutions may have occurred due to the inherent limitations of voice recognition software.
Discharge Plan
Departure
Patient Disposition: Home (Routine Discharge)
Date of Disposition: 02/09/25
Time of Disposition: 20:37
Patient with high blood pressure during this ER visit?: No
Condition: Fair
Discharge Problem:
Diarrhea, Hyperkalemia, Abdominal pain
Instructions: Diarrhea in teens and adults, Hyperkalemia, Abdominal Pain
Prescriptions:
No Action
allopurinol 100 MG tablet
200 mg PO DAILY
sevelamer carbonate 800 MG tablet
800 mg PO QPM
calcium carbonate [Tums] 200 mg calcium (500 mg) Tablet,Chewable
200 mg PO AC
nifedipine 60 mg Tablet Extended Release
60 mg PO DAILY
B-complex with vitamin C Tablet
1 tab PO TUTHSA
cinacalcet 30 mg Tablet
30 mg PO QPM
atorvastatin [Lipitor] 10 mg Tablet
10 mg PO DAILY
loperamide 2 mg Tablet
2 mg PO BIDPRN PRN (Reason: diarrhea)
amlodipine [Norvasc] 5 mg Tablet
5 mg PO DAILY
pantoprazole [Protonix] 40 mg Tablet,Delayed Release (Dr/Ec)
40 mg PO DAILY
labetalol 100 mg Tablet
100 mg PO BID
Referrals:
Db Adams MD [Active] - Tomorrow
Alex Todd MD [Family Provider] -
Activity Restrictions/Additional Instructions:
As we discussed, your abdominal CAT scan shows nothing worrisome.
Your stool is negative for C. difficile. The rest of the stool culture should be finished by tomorrow or Friday. If you have not received a call about the results by Friday, call your family doctor for the results.
Your potassium was high at 6.3. You were given a dose of Lokelma 10 mg here
Your dialysis tomorrow should help lower the potassium. Inform the people at dialysis of your visit here today and your potassium level.
Interventions
Interventions:
*Risk Screen - Suicide Last Done: 02/09/25 19:33
*General Assessment Last Done: 02/09/25 17:35
*Neglect/Abuse Screening Last Done: 02/09/25 19:33
*ED- Fall Risk Assessment Last Done: 02/09/25 19:33
*Nursing Disposition Last Done: 02/09/25 20:51
BY-[id number]-[id number] Assessment Last Done: 02/09/25 19:33
Discharge Date and Time
Discharge Date/Time: 02/09/25 20:51
Print Language: QATARI
[2025-02-09 18:20] LABS: ALT (SGPT) 53 U/L (0-50); AST (SGOT) 36 U/L (17-59); Albumin 4.4 g/dl (3.5-5.0); Alkaline Phosphatase 107 U/L (38-126); Blood Urea Nitrogen 57 mg/dl (9-20); Calcium 9.8 mg/dl (8.4-10.2); Carbon Dioxide 30 mmol/L (22-30); Chloride 97 mmol/L (98-107); Glucose 137 mg/dl (70-99); Lipase 416 U/L (23-300); Potassium 6.3 mmol/L (3.5-5.1); Sodium 139 mmol/L (135-145); Total Bilirubin 0.9 mg/dl (0.2-1.3); Total Protein 7.6 g/dl (6.3-8.2); eGFR 7.09
[2025-02-09] MEDS: LOKELMA 10 GRAM PO (19:21)
[2025-02-09] MEDS: NSS 500 IV (19:21)
[2025-02-09] MEDS: ZOFRAN 4 MG IV (19:21)
[2025-02-09 20:00] VITALS: BP 154/78
== END 2025-02-09 20:51 | disposition home or self-care (01) ==
LOC: EMR 17:31
PROVIDERS: Emergency Medicine; EMERGENCY PHYSICIAN Emergency Medicine; FAMILY PHYSICIAN Family Medicine
DX: R10.31 Right lower quadrant pain (principal); R19.7 Diarrhea, unspecified; R11.2 Nausea with vomiting, unspecified; E87.5 Hyperkalemia; I12.0 Hypertensive chronic kidney disease with stage 5 chronic kidney disease or end stage renal disease; N18.6 End stage renal disease; D64.9 Anemia, unspecified; M10.9 Gout, unspecified; Z99.2 Dependence on renal dialysis
CPT/HCPCS: 99284; 96374; 96361; 74176; 80053; 83605; 83690; 85025; 93005

== ENCOUNTER → 2025-03-16 06:53 | Outpatient (REF) | payer MEDICAID, SELFPAY ==
[2025-03-16 08:00] LABS: % Basophils 0.2 % (0-2); % Eosinophils 2.9 % (0-6); % Immature Granulocytes 0.2 % (0-0.5); % Lymphocytes 23.7 % (20.5-51.1); % Monocytes 11.6 % (1.7-9.3); % Neutrophils 61.4 % (42.2-75.2); Absolute Eosinophils 0.2 10^3/uL (0-0.7); Absolute Lymphocytes 1.3 10^3/uL (1.2-3.4); Absolute Monocytes 0.6 10^3/uL (0.1-0.6); Absolute Neutrophils 3.3 10^3/uL (1.4-6.5); Hematocrit 29.8 % (39.0-52.0); Hemoglobin 9.7 g/dL (13.0-18.0); Mean Corp Hgb Conc. 32.6 g/dL (33.0-37.0); Mean Corpuscular Hgb 34.6 pg (27.0-31.0); Mean Corpuscular Volume 106.4 fL (80.0-94.0); Nucleated Red Blood Cells % 0 % (-); Platelet Count 102 10^3/uL (130-400); Red Cell Dist. Width 13.3 % (11.5-14.5); White Blood Cell Count 5.4 10^3/uL (4.8-10.8)
[2025-03-16 09:18] LABS: ALT (SGPT) 42 U/L (0-50); AST (SGOT) 27 U/L (17-59); Albumin 4.2 g/dl (3.5-5.0); Alkaline Phosphatase 144 U/L (38-126); Blood Urea Nitrogen 42 mg/dl (9-20); Calcium 9.6 mg/dl (8.4-10.2); Carbon Dioxide 34 mmol/L (22-30); Chloride 100 mmol/L (98-107); Glucose 107 mg/dl (70-99); Potassium 5.7 mmol/L (3.5-5.1); Sodium 143 mmol/L (135-145); Total Bilirubin 0.6 mg/dl (0.2-1.3); Total Protein 6.7 g/dl (6.3-8.2); eGFR 8.44
[2025-03-16 14:18] LABS: tTG IgA Antibody 5.2 EU/ml (0-19); tTG IgG Antibody 4.9 EU/ml (0-19)
[2025-03-17 05:12] LABS: IgA 423 mg/dl (70-400)
== END ==
LOC: REG 06:53
PROVIDERS: ATTENDING PHYSICIAN Student in an Organized Health Care Education/Training Program
DX: R19.7 Diarrhea, unspecified (principal); D50.9 Iron deficiency anemia, unspecified; R74.01 Elevation of levels of liver transaminase levels
CPT/HCPCS: 36415; 80053; 82784; 83516; 85025

== ENCOUNTER → 2025-03-23 06:35 | Outpatient (REF) | payer MEDICAID, SELFPAY ==
[2025-03-25 23:05] LABS: Calprotectin, Fecal <5 ug/g (<=49)
== END ==
LOC: CLINIC 06:35
PROVIDERS: ATTENDING PHYSICIAN Student in an Organized Health Care Education/Training Program
DX: R19.7 Diarrhea, unspecified (principal); D50.9 Iron deficiency anemia, unspecified
CPT/HCPCS: 83993; 87045; 87046; 87324; 87328; 87329; 87427; 87449; 89055

== ENCOUNTER → 2025-06-23 11:21 | Outpatient (REF) | payer MEDICAID, SELFPAY | LOC: RAD 11:21 | PROVIDERS: ATTENDING PHYSICIAN Internal Medicine Critical Care Medicine | DX: R91.1 Solitary pulmonary nodule (principal); R93.89 Abnormal findings on diagnostic imaging of other specified body structures | CPT/HCPCS: 71046 ==

== ENCOUNTER → 2025-07-11 08:31 | Outpatient (REF) | payer MEDICAID, SELFPAY ==
[2025-07-11 14:48] LABS: ALT (SGPT) 36 U/L (0-50); AST (SGOT) 31 U/L (17-59); Albumin 4.6 g/dl (3.5-5.0); Alkaline Phosphatase 113 U/L (38-126); Blood Urea Nitrogen 76 mg/dl (9-20); Calcium 8.6 mg/dl (8.4-10.2); Carbon Dioxide 35 mmol/L (22-30); Chloride 92 mmol/L (98-107); Glucose 164 mg/dl (70-99); Potassium 5.5 mmol/L (3.5-5.1); Sodium 140 mmol/L (135-145); Total Protein 7.4 g/dl (6.3-8.2); eGFR 5.60
== END ==
LOC: REG 08:31
PROVIDERS: ATTENDING PHYSICIAN Student in an Organized Health Care Education/Training Program
DX: R79.89 Other specified abnormal findings of blood chemistry (principal)
CPT/HCPCS: 36415; 80053

== ENCOUNTER 2025-08-08 06:40 | Day surgery (SDC) | payer SELFPAY ==
[2025-08-08 08:24] LABS: Glucose - Point of Care 141 mg/dl (70-99)
== END 2025-08-08 10:39 | disposition home or self-care (01) ==
LOC: GI 06:40
PROVIDERS: ATTENDING PHYSICIAN Student in an Organized Health Care Education/Training Program
DX: Z12.11 Encounter for screening for malignant neoplasm of colon (principal); K64.8 Other hemorrhoids; K57.30 Diverticulosis of large intestine without perforation or abscess without bleeding; D50.9 Iron deficiency anemia, unspecified; K31.89 Other diseases of stomach and duodenum; D12.0 Benign neoplasm of cecum; K63.5 Polyp of colon; K63.89 Other specified diseases of intestine; Z98.890 Other specified postprocedural states; Z86.0101 Personal history of adenomatous and serrated colon polyps
CPT/HCPCS: 45385; 45380; 43239; 82962; 88305

== ENCOUNTER 2025-08-23 10:20 | Emergency (ER) | payer MEDICAID, SELFPAY ==
[2025-08-23 10:27] VITALS: BP 138/58
--- NOTE | 2025-08-23 12:01 | ED.GENMED ---
History of Present Illness
General
Chief Complaint: Numbness
Source: patient
Exam Limitations: none
Time Seen by Provider: 08/23/25 11:25
History of Present Illness
History of Present Illness:
60yoM with a history of ESRD on hemodialysis on , hypertension, hyperlipidemia presenting for evaluation of numbness. 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 Symptoms began around 9am this morning while he was being
dialyzed. He states his left hand and left upper quadrant became numb. This has happened the last 4 dialysis sessions but was worse today. Symptoms typically resolve 5-6 hours after dialysis. He became hypotensive during his dialysis session and
received IV fluids. Symptoms are now improving. He spoke with his cloth brushing and sueding supervisor today who did not know what was causing his symptoms so he decided to come to the ED for evaluation. He has been on dialysis for 8-9 years and this has never happened
before. He denies any weakness, chest pain, shortness of breath, speech disturbance, balance issues, headaches. Fistula is located in the L upper arm and has been functioning normally during dialysis.
Past History
Past History
ED Past Medical History: HTN, NIDDM, Renal failure (hemo dialysis) and Other (Chronic anemia, Secondary hyperparathyroidism)
ED Past Surgical History: Appendectomy and Other (LUE AV fistula)
Social History
Personal:
Phy Exam
General Physical Exam
General Presentation: well appearing and no apparent distress
General Skin: warm and dry
General Habitus: normal
General Mental: alert
ENT Exam
ENT Exam: normocephalic
Cardiovascular Exam
Cardiovascular Exam: regular rate/rhythm, no edema and normal peripheral pulses (2+ radial and DP pulses bilaterally)
Pulmonary Exam
Pulmonary Exam: lungs clear, no respiratory distress, no rales, no crackles, no rhonchi and no wheezing
Gastrointestinal Exam
Gastrointestinal Exam: non tender, soft and non distended
Neurological Exam
Neurological Exam: alert, CN II-XII intact, no motor deficits, no sensory deficits and speech normal
Radhames Coma Scale
Eye Opening: Spontaneous
Verbal Response: Oriented
Motor Response: Obeys Commands
GCS Total Score: 15
Musculoskeletal Exam
Musculoskeletal Exam: other (LUE fistula in place with palpable thrill)
Skin Exam
Skin Exam: normal color and warm/dry
Psychiatric Exam
Psychiatric Exam: normal mood/affect
Scores
NIH Stroke Score
Level of Consciousness: 0 - Alert
LOC Questions: 0-Answers both correctly
LOC Commands: 0-Performs both correctly
Best Horizontal Gaze: 0-Normal
Visual [place]: 0=Normal, no visual loss
Facial Palsy: 0=Normal, symmetrical
Motor - Right Arm: 0=No drift 10 seconds
Motor - Left Arm: 0=No drift 10 seconds
Motor - Right Le-No drift 5 seconds
Motor - Left Le-No drift 5 seconds
Limb Ataxia: 0-Absent
Sensation: 0-Normal
Best Language: 0-No aphasia
Dysarthria: 0-Normal
Extinction and Inattention: 0-No abnormality
NIH Total Score:: 0
Course
Orders/Labs/Results
Orders:
Orders
08/23/25 12:00
Electrocardiogram (*1) Urgent
Reason for Study: Other
Other Reason for Exam: paresthesias
CT Head W/o Iv Contrast Urgent
Comment:
Reason For Exam: L sided numbness
EKG- Treatment ONCE
08/23/25 12:16
Complete Blood Count/With Diff Urgent
Comprehensive Metabolic Panel Urgent
Magnesium Urgent
Abnormal Lab Results
08/23/25
12:16
RBC 3.10 L 10^6/uL
(4.70-6.10)
Hgb 10.8 L g/dL
(13.0-18.0)
Hct 31.5 L %
(39.0-52.0)
MCV 101.6 H fL
(80.0-94.0)
MCH 34.8 H pg
(27.0-31.0)
MPV 11.2 H fL
(7.4-10.4)
Sodium 134 L mmol/L
(135-145)
Chloride 93 L mmol/L
(98-107)
Carbon Dioxide 34 H mmol/L
(22-30)
BUN 29 H mg/dl
(9-20)
Creatinine 4.7 H* mg/dL
(0.7-1.3)
Glucose 246 H mg/dl
(70-99)
Calcium 8.3 L mg/dl
(8.4-10.2)
08/23/25 12:16
08/23/25 12:16
Vital Signs
Initial and Last Documented VS:
Initial Vital Signs
Temp Pulse Resp BP Pulse Ox
98.9 F 76 16 138/58 98
08/23/25 10:27 08/23/25 10:27 08/23/25 10:27 08/23/25 10:27 08/23/25 10:27
Last Documented Vital Signs
Temp Pulse Resp BP Pulse Ox
98.9 F 73 16 134/67 98
08/23/25 10:27 08/23/25 14:52 08/23/25 14:38 08/23/25 14:51 08/23/25 14:38
MDM/Problems Addressed
Differential Diagnosis Includes:
60yoM here with L upper abdomen and L hand numbness that started during dialysis today. Has occurred the past 4 dialysis sessions. Now improving. Denies chest/abd pain. No weakness. VSS. Patient well-appearing no distress. Neuro exam is nonfocal.
No objective sensory deficit present. NIHSS 0. Differential diagnosis includes: Electrolyte abnormality, dialysis steal syndrome, paresthesias related to hypotension, less likely CVA
Initial ED plan: Check CBC, CMP, magnesium, EKG, and CT head.
*Pulse Oximetry
SaO2: 98
Oxygen Mode of Delivery: Room air
Patient hypoxic: no
*EKG
Interpreted by ED Provider?: Yes
EKG Intrepretation Date: 08/23/25
Heart Rate: 75
Rate: normal
Rhythm: sinus
[place]: normal axis
Interval: long QT (500)
QRS Pattern: normal QRS
Ischemia: no ischemia
*Critical Care Note
Total Time (30-74mins, 75-104mins- exclusive of procedures): Not Applicable
Update Note
Update Note:
Labs consistent with known ESRD. No significant electrolyte abnormality noted. EKG shows normal sinus rhythm without ischemic changes. Head CT negative for acute findings. Unclear etiology of symptoms. Discussed with Dr. Lara. Consider
possible dialysis steal syndrome although this would not explain his left upper abdomen symptoms. Discussed case with vascular surgery who recommended outpatient follow-up for steal study. Recommendations discussed with patient. He was also
instructed to follow-up with PCP and his cloth brushing and sueding supervisor. ED return precautions reviewed and he was discharged in stable condition.
ED Attending Note
-
Portions of this chart may have been created with voice recognition software.� Occasional wrong word or��sound alike� substitutions may have occurred due to the inherent limitations of voice recognition software.
Discharge Plan
Departure
Patient Disposition: Home (Routine Discharge)
Date of Disposition: 08/23/25
Time of Disposition: 14:42
Patient with high blood pressure during this ER visit?: No
Discharge Problem:
Paresthesia
Instructions: Paresthesia (DC)
Prescriptions:
No Action
allopurinol 100 MG tablet
200 mg PO DAILY
sevelamer carbonate 800 MG tablet
800 mg PO QPM
calcium carbonate [Tums] 200 mg calcium (500 mg) Tablet,Chewable
200 mg PO AC
nifedipine 60 mg Tablet Extended Release
60 mg PO DAILY
B-complex with vitamin C Tablet
1 tab PO TUTHSA
cinacalcet 30 mg Tablet
30 mg PO QPM
atorvastatin [Lipitor] 10 mg Tablet
10 mg PO DAILY
loperamide 2 mg Tablet
2 mg PO BIDPRN PRN (Reason: diarrhea)
amlodipine [Norvasc] 5 mg Tablet
5 mg PO DAILY
pantoprazole [Protonix] 40 mg Tablet,Delayed Release (Dr/Ec)
40 mg PO DAILY
labetalol 100 mg Tablet
100 mg PO BID
Referrals:
NONE,* [Family Provider, Internal Medicine]
Clovis Goldberg MD [Active, Vascular Surgery]
Activity Restrictions/Additional Instructions:
Please follow-up with your cloth brushing and sueding supervisor, vascular surgery, and your family doctor.
Return to the ER with any new or worsening symptoms.
Interventions
Interventions:
*Risk Screen - Suicide Last Done: 08/23/25 10:27
*General Assessment Last Done: 08/23/25 10:27
*Neglect/Abuse Screening Last Done: 08/23/25 10:27
*ED- Fall Risk Assessment Last Done: 08/23/25 10:27
*ED COVID-19 Vaccine History Last Done: 08/23/25 10:27
*ED Influenza Vaccine History Last Done: 08/23/25 10:27
*Nursing Disposition Last Done: 08/23/25 14:54
ED- Neurological Assessment Last Done: 08/23/25 12:20
Discharge Date and Time
Discharge Date/Time: 08/23/25 14:56
Print Language: BENGALI
[2025-08-23 12:07] VITALS: BMI 29.3
[2025-08-23 12:08] VITALS: BP 138/63
[2025-08-23 12:32] LABS: Hematocrit 31.5 % (39.0-52.0); Hemoglobin 10.8 g/dL (13.0-18.0); Mean Corp Hgb Conc. 34.3 g/dL (33.0-37.0); Mean Corpuscular Volume 101.6 fL (80.0-94.0); Nucleated Red Blood Cells % 0 % (-); Platelet Count 134 10^3/uL (130-400); Red Cell Dist. Width 12.7 % (11.5-14.5)
[2025-08-23 12:51] LABS: ALT (SGPT) 29 U/L (0-50); AST (SGOT) 25 U/L (17-59); Albumin 4.3 g/dl (3.5-5.0); Alkaline Phosphatase 115 U/L (38-126); Blood Urea Nitrogen 29 mg/dl (9-20); Calcium 8.3 mg/dl (8.4-10.2); Carbon Dioxide 34 mmol/L (22-30); Chloride 93 mmol/L (98-107); Estimated Creatinine Clearance 16 ml/min; Glucose 246 mg/dl (70-99); Magnesium 2.1 mg/dl (1.6-2.3); Potassium 4.2 mmol/L (3.5-5.1); Sodium 134 mmol/L (135-145); Total Protein 6.9 g/dl (6.3-8.2); eGFR 13.54
[2025-08-23 14:51] VITALS: BP 134/67
== END 2025-08-23 14:56 | disposition home or self-care (01) ==
LOC: EMR 10:20
PROVIDERS: Physician Assistant; EMERGENCY PHYSICIAN Emergency Medicine
DX: R20.2 Paresthesia of skin (principal); E11.22 Type 2 diabetes mellitus with diabetic chronic kidney disease; I13.11 Hypertensive heart and chronic kidney disease without heart failure, with stage 5 chronic kidney disease, or end stage renal disease; N18.6 End stage renal disease; N25.81 Secondary hyperparathyroidism of renal origin; E78.5 Hyperlipidemia, unspecified; D64.9 Anemia, unspecified; Z99.2 Dependence on renal dialysis; Z79.84 Long term (current) use of oral hypoglycemic drugs
CPT/HCPCS: 99284; 70450; 80053; 83735; 85025; 93005

== ENCOUNTER 2025-09-10 15:03 | Emergency (ER) | payer MEDICAID, SELFPAY ==
[2025-09-10 15:10] VITALS: BP 185/74
[2025-09-10 15:52] LABS: COVID-19 Antigen Negative (Negative)
[2025-09-10] MEDS: TYLENOL 650 MG PO (16:38)
[2025-09-10 16:39] VITALS: BMI 29.8
--- NOTE | 2025-09-10 18:48 | ED.GENMED ---
History of Present Illness
General
Chief Complaint: Fever
Time Seen by Provider: 09/10/25 16:25
History of Present Illness
History of Present Illness:
Patient is a 60-year-old male with past medical history of ESRD on dialysis who presents complaining of positive home COVID test and fever. Denies any shortness of breath, chest pain. Did not take any Tylenol or Motrin prior to arriving at the ER.
Has been having cough and congestion. Requesting chest x-ray
Past History
Past History
ED Past Medical History: HTN, NIDDM, Renal failure (hemo dialysis) and Other (Chronic anemia, Secondary hyperparathyroidism)
ED Past Surgical History: Appendectomy and Other (LUE AV fistula)
Social History
Personal:
Phy Exam
General Physical Exam
General Presentation: well appearing and no apparent distress
General Skin: warm and dry
General Habitus: normal
General Mental: alert
General Hydration: appears well hydrated
ENT Exam
ENT Exam: EOMI, pharynx normal, neck supple and normocephalic
Eye Exam
Eye Exam: PERRL, cornea clear and conjunctiva normal
Cardiovascular Exam
Cardiovascular Exam: regular rate/rhythm, no edema, no murmur and normal peripheral pulses
Pulmonary Exam
Pulmonary Exam: lungs clear, no respiratory distress, no rales, no crackles, no rhonchi, no stridor, no wheezing and no cough
Gastrointestinal Exam
Gastrointestinal Exam: normal bowel sounds, non tender, soft, no organomegaly, no pulsatile mass and non distended
Neurological Exam
Neurological Exam: alert, oriented x3, no motor deficits and speech normal
Musculoskeletal Exam
Musculoskeletal Exam: full ROM and no edema
Skin Exam
Skin Exam: normal color, warm/dry, no rash and no petechia
Psychiatric Exam
Psychiatric Exam: normal mood/affect
Sepsis
Sepsis Screening
Sepsis Assessment: Sepsis Ruled Out
Sepsis Screen
Sepsis Screen: Sepsis Ruled Out
Date: 09/10/25
Time: 18:50
Course
Orders/Labs/Results
Orders:
Orders
09/10/25 15:18
COVID-19 Antigen Urgent
Source: Nasal Swab
Influenza A+B Rapid Molecular Urgent
TED Source: Nasal Swab
Specimen Description:
09/10/25 16:32
Acetaminophen [Tylenol] 650 mg PO NOW STA
CXR2 [CR Chest - 2 Views ] Urgent
Comment:
Reason For Exam: cough
Vital Signs
Initial and Last Documented VS:
Initial Vital Signs
Temp Pulse Resp BP Pulse Ox
39.3 C H 102 16 185/74 95
09/10/25 15:10 09/10/25 15:10 09/10/25 15:10 09/10/25 15:10 09/10/25 15:10
Last Documented Vital Signs
Temp Pulse Resp BP Pulse Ox
39.3 C H 102 16 185/74 95
09/10/25 15:10 09/10/25 15:10 09/10/25 15:10 09/10/25 15:10 09/10/25 15:10
MDM/Problems Addressed
Differential Diagnosis Includes:
Patient positive for influenza A here in the ER. COVID-negative. Chest x-ray obtained and reviewed viewed by me. No evidence of pneumonia. Maintaining adequate saturations on room air. Discussed supportive care for flu. Return precautions
discussed. Patient be discharged home.
*Pulse Oximetry
SaO2: 95
Oxygen Mode of Delivery: Room air
Patient hypoxic: no
*Critical Care Note
Total Time (30-74mins, 75-104mins- exclusive of procedures): Not Applicable
ED Attending Note
-
Portions of this chart may have been created with voice recognition software.� Occasional wrong word or��sound alike� substitutions may have occurred due to the inherent limitations of voice recognition software.
Discharge Plan
Departure
Patient Disposition: Home (Routine Discharge)
Date of Disposition: 09/10/25
Time of Disposition: 17:58
Patient with high blood pressure during this ER visit?: No
Discharge Problem:
Influenza A, Fever
Instructions: Fever, Adult (DC), Flu in adults (DC)
Prescriptions:
No Action
allopurinol 100 MG tablet
200 mg PO DAILY
sevelamer carbonate 800 MG tablet
800 mg PO QPM
calcium carbonate [Tums] 200 mg calcium (500 mg) Tablet,Chewable
200 mg PO AC
nifedipine 60 mg Tablet Extended Release
60 mg PO DAILY
B-complex with vitamin C Tablet
1 tab PO TUTHSA
cinacalcet 30 mg Tablet
30 mg PO QPM
atorvastatin [Lipitor] 10 mg Tablet
10 mg PO DAILY
loperamide 2 mg Tablet
2 mg PO BIDPRN PRN (Reason: diarrhea)
amlodipine [Norvasc] 5 mg Tablet
5 mg PO DAILY
pantoprazole [Protonix] 40 mg Tablet,Delayed Release (Dr/Ec)
40 mg PO DAILY
labetalol 100 mg Tablet
100 mg PO BID
Referrals:
UNKNOWN - PT DOES,NOT KNOW [Family Provider]
Activity Restrictions/Additional Instructions:
Continue supportive measures for the flu. Is important stable hydrated. You may take Tylenol for any fevers or pains. Return to the ER for any worsening shortness of breath, chest pain, fevers over 100.4 that do not improve with Tylenol.
Interventions
Interventions:
*Risk Screen - Suicide Last Done: 09/10/25 15:10
*General Assessment Last Done: 09/10/25 15:10
*Neglect/Abuse Screening Last Done: 09/10/25 15:10
*ED COVID-19 Vaccine History Last Done: 09/10/25 16:39
*ED Influenza Vaccine History Last Done: 09/10/25 16:39
[facility] Fall Risk Assessment Tool Last Done: 09/10/25 15:04
*Nursing Disposition Last Done: 09/10/25 18:18
ED- Neurological Assessment Last Done: 09/10/25 16:39
ED-Skin Assessment Last Done: 09/10/25 16:41
Discharge Date and Time
Discharge Date/Time: 09/10/25 18:19
Print Language: [place]
== END 2025-09-10 18:19 | disposition home or self-care (01) ==
LOC: EMR 15:03
PROVIDERS: EMERGENCY PHYSICIAN Student in an Organized Health Care Education/Training Program
DX: J10.1 Influenza due to other identified influenza virus with other respiratory manifestations (principal); E11.22 Type 2 diabetes mellitus with diabetic chronic kidney disease; I12.0 Hypertensive chronic kidney disease with stage 5 chronic kidney disease or end stage renal disease; N18.6 End stage renal disease; N25.81 Secondary hyperparathyroidism of renal origin; Z79.84 Long term (current) use of oral hypoglycemic drugs; Z99.2 Dependence on renal dialysis
CPT/HCPCS: 99284; 71046; 87502; 87811